=== PATIENT | female | born 2000 | race Caucasian/White ===

== ENCOUNTER 2023-05-08 20:07 | Inpatient (IN) | payer MEDICAID, SELFPAY ==
[2023-05-08 20:14] VITALS: BP 140/70; PULSE 120
[2023-05-08 20:24] VITALS: BP 132/80; PULSE 123; RESP 18; TEMP 36.7; O2SAT 97; BMI 32.6
[2023-05-08 20:54] LABS: MANUAL DIFF FLAG NO
[2023-05-08 20:55] LABS: Basophils Absolute Auto 0.1 X10*3/uL (0.0-0.2); Basophils Percent Auto 0.3 % (0-2); Eosinophils Absolute Auto 0.5 X10*3/uL (0.0-0.4); Eosinophils Percent Auto 3.2 % (0-4); Hematocrit 39.2 % (37.0-47.0); Hemoglobin 12.9 g/dl (12.0-16.0); Imm Gran Abs Auto 0.04 X10*3/uL (0.00-0.03); Imm Gran Pct Auto 0.3 % (0.0-0.4); Lymphocytes Absolute Auto 2.9 X10*3/uL (1.2-4.9); Lymphocytes Percent Auto 19.3 % (20-40); Mean Corpuscular HGB Conc 32.9 g/dl (31.0-35.0); Mean Corpuscular Volume 94.2 fL (80.0-98.0); Mean Platelet Volume 12.3 fL (9.4-12.3); Monocytes Absolute Auto 1.1 X10*3/uL (0.1-1.2); Monocytes Percent Auto 7.3 % (2-11); Neutrophils Absolute Auto 10.6 x10*3/uL (2.0-8.3); Neutrophils Percent Auto 69.6 % (45-73); Platelet Count 220 X10*3/uL (160-400); Red Blood Count 4.16 X10*6/uL (4.20-5.50); Red Cell Distribution Width 13.7 % (11.0-16.0); White Blood Count 15.2 X10*3/uL (4.8-10.8)
--- NOTE | 2023-05-08 20:58 | ED.PSYCH ---
HPI - Psych General Chief Complaint: Psychiatric Symptoms Stated Complaint: Making SI and HI statement today. Pt does have hx Time Seen by Provider: 05/08/23 20:20 Source: patient Mode of arrival: EMS Limitations: no limitations History of Present Illness HPI Narrative: 22 yo female with PMH of depression and SI from long-term asking for 1 week break she states she's been at the long-term for 5 days and it's wild and triggering and she needs a break. MD complaint: suicidal ideation and feels depressed Onset (ago): week(s) (1+) Duration: changing over time History of same: Yes Relieving factors: none Exacerbating factors: other Context: significant life stressor Associated psychiatric symptoms: depression and suicidal ideation Associated symptoms: denies other symptoms Treatments prior to arrival: none If self harm: admits thoughts of self harm Related Data Allergies Allergy/AdvReac Type Severity Reaction Status Date / Time ibuprofen Allergy Intermediate Hives Verified 05/08/23 20:43 Review of Systems Review of Systems: Constitutional : No Fever, No Chills ENT/Mouth : No Ear Pain, No Nasal Congestion, No sore throat Eyes: No Eye Pain, No Swelling, No Redness Cardiovascular : No Chest Pain, No SOB Respiratory : No Cough, No Sputum, No Dyspnea Gastrointestinal : No Nausea, No Vomiting, No Diarrhea, No Hematochezia, No Melena Genitourinary : No Dysuria, No Urinary Frequency, No Hematuria Musculoskeletal : No Myalgias Skin : No Skin Lesions, No rash Neuro : No Weakness, No Numbness, No Paresthesias, No Dizziness, No Headache Psych : positive Anxiety, positive Depression, positive SI no HI Heme/Lymph: No Lymphadenopathy Endocrine : No Polyuria, No Polydipsia All other systems reviewed and are negative FOR[facility]LY [facility], [facility] Past Medical History Attestation statement: The following information was validated with the patient. Medical History Depression Social History Social History (Updated 05/08/23 @ 21:13 by Milagros Aguilar DO) Patient Tobacco Use Status: Never used Tobacco Use of substances other than those prescribed or required for medical reasons: No Advance Directives: No Advance Directives Information Provided: No Physical Exam Vital Signs: Vital Signs: Last Vital Signs Temp 98.0 F 05/08/23 20:24 Pulse 123 H 12/01/23 20:24 Resp 18 05/08/23 20:24 BP 132/80 05/08/23 20:24 Pulse Ox 97 05/08/23 20:24 O2 Del Method Room Air 05/08/23 20:24 BMI result Body Mass Index 32.6 Appearance: Alert. Oriented X3. No acute distress. Eyes: Pupils equal, round and reactive to light. ENT: Pharynx normal. Neck: Normal inspection. Neck supple. CVS: Normal heart rate and rhythm. Pulses normal. Respiratory: No respiratory distress. Breath sounds normal. Abdomen: Soft and nontender. Skin: Skin warm and dry. Normal skin color. Normal skin turgor. Extremities: No lower extremity edema. No calf ttp Neuro: Oriented X 3. No motor deficit. No sensory deficit. CN2-12 intact Course Course Course Narrative: Physician observation started at 911pm Patient placed in physician observation because the patient needed more time for medication to work and to see CARE team to assess the need for psych admission. At the time observation was started the patient's vitals were stable, patient is alert and oriented but slightly anxious, Neuro: nonfocal, CV RRR, Lungs clear Medical Decision Making Medical Decision Making MDM Narrative: 22 yo female with PMH of anxiety and depression from long-term here with c/o triggered event at long-term now SI without plan. She is calm and cooperative at this time - CARE team consult ordered. There is another client from same long-term here and patient is talking to her. Differential Diagnosis Differential Diagnoses: The differential diagnosis associated with the presentation includes anxiety, depression, SI Admission/Observation Consideration of admission/observation: Escalation of care including admission/observation considered observe until CARE team sees patient Consult Healthcare Provider Management of the patient was discussed with: Behavioral Health Provider Lab Data [facility] Lab Attestation statement: I reviewed the patient's lab results. 05/08/23 20:47 05/08/23 20:47 Labs: Lab Results 05/08/23 05/08/23 Range/Units 20:47 20:48 WBC 15.2 H (4.8-10.8) X10*3/uL RBC 4.16 L (4.20-5.50) X10*6/uL Hgb 12.9 (12.0-16.0) g/dl Hct 39.2 (37.0-47.0) % MCV 94.2 (80.0-98.0) fL MCH 31.0 (27.0-33.0) pg MCHC 32.9 (31.0-35.0) g/dl RDW 13.7 (11.0-16.0) % Plt Count 220 (160-400) X10*3/uL MPV 12.3 (9.4-12.3) fL Immature Gran % (Auto) 0.3 (0.0-0.4) % Neut % (Auto) 69.6 (45-73) % Lymph % (Auto) 19.3 L (20-40) % [place] % (Auto) 7.3 (2-11) % Eos % (Auto) 3.2 (0-4) % Baso % (Auto) 0.3 (0-2) % Lymph # (Auto) 2.9 (1.2-4.9) X10*3/uL [place] # (Auto) 1.1 (0.1-1.2) X10*3/uL Eos # (Auto) 0.5 H (0.0-0.4) X10*3/uL Baso # (Auto) 0.1 (0.0-0.2) X10*3/uL Abs Immat Gran (auto) 0.04 H (0.00-0.03) X10*3/uL Absolute Neuts (auto) 10.6 H (2.0-8.3) x10*3/uL Absolute Nucleated RBC 0.000 (0.0-0.012) X10*3/uL Nucleated RBC % (auto) 0.0 (0.0-0.2) /100WBC Sodium 145 (135-145) mmol/L Potassium 3.5 (3.3-5.1) mmol/L Chloride 116 H (96-108) mmol/L Carbon Dioxide 21 L (22-29) mmol/L Anion Gap 12 (12-20) BUN 11 (9-16) mg/dL Creatinine 0.76 (0.5-1.4) mg/dL Estim Creat Clear Calc 115.3 Estimated GFR > 60 Random Glucose 139 H (60-115) mg/dL Calcium 9.5 (8.4-10.2) mg/dL Magnesium 1.9 (1.6-2.6) mg/dL Total Bilirubin 0.2 (0.0-1.0) mg/dL Direct Bilirubin < 0.2 (0.0-0.5) mg/dL AST 13 (5-31) U/L ALT 14 (0-31) U/L Alkaline Phosphatase 94 (39-117) U/L Total Protein 6.9 (6.5-8.0) g/dL Albumin 4.2 (3.5-5.0) g/dL Beta HCG, Quant < 2 mIU/mL Urine Opiates Screen Not Detected (Not Detect) Urine Fentanyl Screen Not Detected (Not Detect) Ur Barbiturates Screen Not Detected (Not Detect) Ur Phencyclidine Scrn Not Detected (Not Detect) Ur Amphetamines Screen Not Detected (Not Detect) U Benzodiazepines Scrn Not Detected (Not Detect) Urine Cocaine Screen Not Detected (Not Detect) U Marijuana (THC) Screen Not Detected (Not Detect) Ethyl Alcohol < 10 mg/dL Independent Historian Clinical information obtained from an independent historian. History obtained from or confirmed by: EMS External Record Review External record reviewed: Outpatient record Discharge Plan Discharge Clinical Impression: Acute anxiety Patient Disposition: Still a Patient
[2023-05-08 21:03] LABS: Amphetamine Screen Urine Not Detected (Not Detect); Barbiturates, Urine Not Detected (Not Detect); Benzodiazepines Screen Urine Not Detected (Not Detect); Cannabinoid Screen Urine Not Detected (Not Detect); Cocaine Screen Urine Not Detected (Not Detect); Fentanyl, urine Not Detected (Not Detect); Opiate Screen Urine Not Detected (Not Detect); Phencyclidine Screen Urine Not Detected (Not Detect)
[2023-05-08 21:25] LABS: Alanine Aminotransferase 14 U/L (0-31); Albumin Level 4.2 g/dL (3.5-5.0); Alkaline Phosphatase 94 U/L (39-117); Anion Gap 12 (12-20); Aspartate Amino Transferase 13 U/L (5-31); Bilirubin Direct < 0.2 mg/dL (0.0-0.5); Bilirubin Total 0.2 mg/dL (0.0-1.0); Blood Urea Nitrogen 11 mg/dL (9-16); Calcium 9.5 mg/dL (8.4-10.2); Carbon Dioxide 21 mmol/L (22-29); Chloride 116 mmol/L (96-108); Creatinine Clr Calc Pharmacy 115.3; Estimated Glomerular Filt Rate > 60; Ethanol < 10 mg/dL; Glucose Random 139 mg/dL (60-115); HCG Quantitative < 2 mIU/mL; Magnesium 1.9 mg/dL (1.6-2.6); Potassium 3.5 mmol/L (3.3-5.1); Sodium 145 mmol/L (135-145); Total Protein 6.9 g/dL (6.5-8.0)
[2023-05-08 22:34] LABS: Appearance Urine Clear; Color Urine Yellow; Glucose Urine UA Negative (Negative); Leukocyte Esterase Urine Negative (Negative); Nitrite Urine Negative (Negative); Urine Blood Negative (Negative); Urine Ketones Negative (Negative); Urine Protein Negative (Neg-Trace)
[2023-05-08 23:25] VITALS: BP 111/73; PULSE 115; RESP 20; TEMP 36.7; O2SAT 97
[2023-05-08] MEDS: Acetaminophen 325 MG TABLET 975 MG PO (23:28)
--- NOTE | 2023-05-08 23:33 | PC.NURSE ---
Pt medicated per aug. Plan of care ongoing.
--- NOTE | 2023-05-08 23:59 | PC.NURSE ---
Care team with pt. plan of care ongoing.
--- NOTE | 2023-05-09 00:44 | PC.NURSE ---
Pt requested and given food and drink. Plan of care ongoing.
[2023-05-09] MEDS: cloZAPine 100 MG TABLET 300 MG PO (03:31)
--- NOTE | 2023-05-09 03:34 | PC.NURSE ---
Pt medicated per aug. Plan of care ongoing.
--- NOTE | 2023-05-09 06:41 | MHC.CARE ---
[facility] Clinical Director is Margaret Gonzalez ([phone]) please contact her during F/U assessment. [facility] President is Sandy ([phone])
--- NOTE | 2023-05-09 09:34 | HE.PHANOTE ---
RE CLOZAPINE DOSING SPOKE TO TRAVIS AT [facility]F ([phone]) AND SHE CONFIRMED THAT PT TAKES 150 MG CLOZAPINE @0700, 150 MG CLOZAPINE @0800, AND 25 MG CLOZAPINE @1500. LAST DOSE GIVEN AT SNF WAS 05/08/23 25 MG @1500.
[2023-05-09 09:37] VITALS: BP 97/69; PULSE 127; TEMP 36.5; O2SAT 98
[2023-05-09 10:13] LABS: Lithium 0.48 mmol/L (0.60-1.20)
[2023-05-09] MEDS: Lithium Carbonate ER 300 MG TABLET.ER 1200 MG PO (10:55)
[2023-05-09 12:16] LABS: COVID-19 Test Negative (Negative); IDNOW Serial# 08D9AD1C
--- OUTSIDE RECORDS SUMMARY | 2023-05-09 13:30 | XMS_ITS | Continuity of Care Document ---
Author Name Unknown Organization [facility] Address [address] [place] [address]- Care Team Providers Care Manager Ent Name Role Phone Not on Staff, PCP Primary Care Physician Unavail able Encounter [facility] NBR [id number] Date(s): 05/05/23 - 05/05/[address] [address]- Discharge Disposition: A-D/C Walkout Attending Physician: Not on Staff, Attending MD Admitting Physician: Not on Staff, Admitting MD Referring Physician: Not on Staff, Referring MD Allergies, Adverse Reactions, Alerts Substance Reaction Severity Status ibuprofen Active Vital Signs Most recent to oldest [Reference Range]: 1 Height 163 cm (05/05/23 5:19 PM) Weight 80 kg (05/05/23 5:19 PM) Oxygen Saturation [94-100 %] 100 % (05/05/23 5:19 PM) Pulse Rate [55-90 bpm] 117 bpm *H* (05/05/23 5:19 PM) Blood Pressure [90-138/55-84 mm Hg] 125/ 92mm Hg (05/05/23 5:19 PM) Respiratory Rate [16-30 br/min] 18 br/mi n (05/05/23 5:19 PM) Temperature [96.8-100.4 DegF] 98 DegF (05/05/23 5:19 PM) Mode of Delivery (Oxygen) Room air (05/05/23 5:19 PM) Temperature Route Temporal (05/05/23 5:19 PM) Dry Weight 80 kg (05/05/23 5:19 PM) Social History Social History Type Response Smoking Status Never (less than 100 in lifetime) entered on: 05/05/23 Sex Patient Care team information Care Team Personnel Name: Not on Staff, PCP Position: [facility] Physician (General Medicine) Member Role: PCP
[2023-05-09] MEDS: Famotidine 20 MG TABLET 10 MG PO (15:57)
[2023-05-09] MEDS: Acetaminophen 325 MG TABLET 650 MG PO (15:58)
[2023-05-09] MEDS: cloZAPine 25 MG TABLET PO ×2 (15:58→20:31)
[2023-05-09] MEDS: clonazePAM 0.5 MG TABLET PO (15:58)
[2023-05-09] MEDS: Lactase TABLET 1 TAB PO (16:29)
[2023-05-09 16:34] VITALS: BMI 31.9
--- NOTE | 2023-05-09 16:39 | PC.ADMIT ---
Nursing admission note: 22 year old female DX: Unspecified Depressive Disorder, PTSD. Referred for treatment by CARE team. Signed conditional voluntary for admission. Reports she has conservator Forrest Mosley [phone]. Patient presented to [facility] via ambulance from her [facility] residential due to suicidal ideation. Patient reports she called the ambulance herself due to chaos at residential. Reports she moved in 5 days ago from residential setting. Patient easily engaged, calm and cooperative with admission assessment. Presents with good eye contact. Is malodorous, however asking to take shower. Thoughts linear and organized, concrete. Patient denies A/V hallucinations, no overt psychosis or expressed delusions. Speech normal rate, tone, nohemi. Difficult to understand at times due to speech impediment. Patient denies sleep or appetite disturbances. Reports history of incontinence at night. Per crisis evaluation patient triggered by yelling, screaming and breaking of things at new residence, reporting increase in flashbacks of past trauma. Patient with history of choking self, head banging and cutting. Currently has raised red area on forehead, superficial scratches to inner wrist. Medical history includes Lactose intolerance, bilateral hearing loss, asthma. Patient wearing glasses. Wears knee and ankle brace, currently with patient. Allergy to Ibuprofen. Patient denies drug or alcohol use. Non smoker. Reports receiving flu vaccine for current season. Patient would like med evaluation as she feels current meds are not working. Patient oriented to unit, placed on unit safety checks. See nursing assessment, crisis evaluation for complete details.
[2023-05-09] MEDS: Albuterol Sulfate 90 MCG 8 GM INHALER 1 PUFF INHALE (19:26)
[2023-05-09] MEDS: fluvoxaMINE Maleate 50 MG TABLET 25 MG PO (20:29)
[2023-05-09 20:30] VITALS: BP 116/72; PULSE 118; RESP 18; TEMP 37.1; O2SAT 99
[2023-05-09] MEDS: cloZAPine 100 MG, cloZAPine 50 MG 150 MG PO (20:31)
[2023-05-09] MEDS: Sennosides 8.6 MG TABLET 17.2 MG PO (20:40)
[2023-05-09] MEDS: Montelukast Sodium 10 MG TABLET PO (20:41)
[2023-05-09] MEDS: Fluticasone Propionate 100 MCG BLST.W.DEV 100 PUFF INHALE (20:42)
[2023-05-09] MEDS: polyethylene glycoL 3350 17 GM POWD.PACK PO (20:42)
[2023-05-09] MEDS: Fluticasone Propionate Nasal 16 GM SPRAY 1 SPRAY NOSTRIL-B (21:11)
[2023-05-10] MEDS: Levothyroxine Sodium 50 MCG TABLET PO (06:20)
[2023-05-10] MEDS: Famotidine 20 MG TABLET 10 MG PO ×2 (06:52→17:35)
[2023-05-10 07:15] LABS: Alanine Aminotransferase 29 U/L (0-31); Albumin Level 3.9 g/dL (3.5-5.0); Alkaline Phosphatase 66 U/L (39-117); Anion Gap 11 (12-20); Aspartate Amino Transferase 25 U/L (5-31); Bilirubin Total 0.4 mg/dL (0.0-1.0); Blood Urea Nitrogen 9 mg/dL (9-16); Calcium 9.7 mg/dL (8.4-10.2); Carbon Dioxide 23 mmol/L (22-29); Chloride 114 mmol/L (96-108); Cholesterol 141 mg/dL (<200); Creatinine Clr Calc Pharmacy 115.6; Estimated Glomerular Filt Rate > 60; Glucose Fasting 94 mg/dL (60-99); HDL Cholesterol 57 mg/dL (>40); LDL Cholesterol Calculated 64 mg/dL (<100); Potassium 3.9 mmol/L (3.3-5.1); Sodium 144 mmol/L (135-145); Total Protein 6.3 g/dL (6.5-8.0); Triglycerides 100 mg/dL (<150)
[2023-05-10 08:05] VITALS: BP 96/62; PULSE 100; TEMP 36.6; O2SAT 98
[2023-05-10] MEDS: Cholecalciferol (Vitamin D3) 25 MCG TABLET 125 MCG PO (08:55)
[2023-05-10] MEDS: Spironolactone 25 MG TABLET PO (08:56)
[2023-05-10] MEDS: Doxycycline Monohydrate 100 MG CAPSULE PO (08:56)
[2023-05-10] MEDS: cloZAPine 100 MG, cloZAPine 50 MG 150 MG PO (08:56)
[2023-05-10] MEDS: metFORMIN HCl 850 MG TABLET PO ×2 (08:56→20:15)
[2023-05-10] MEDS: Lactase TABLET 1 TAB PO ×3 (08:57→17:35)
[2023-05-10] MEDS: Lithium Carbonate ER 300 MG TABLET.ER 1200 MG PO (08:57)
[2023-05-10] MEDS: Fluticasone Propionate 100 MCG BLST.W.DEV 100 PUFF INHALE ×2 (09:05→20:17)
--- NOTE | 2023-05-10 10:00 | PC.NURSE ---
Patient signed a 3 day 05/10/23, up on Thu05/13/23
--- NOTE | 2023-05-10 10:18 | HO.PSYADMNOT ---
HPI Date of Service: 05/10/23 Chief Complaint: Psychosis Sources of Information: patient interviewed, chart reviewed and crisis/core team assessment reviewed HPI Subjective Notes: Aguiar Warning, Conditional Voluntary and 3 Day Healthcare Proxy: No Guardianship: No Medical Problems Affecting Mental Status: No Narrative: As per ED note 05/08/23: 22 yo female with PMH of depression and SI from [place] [facility] asking for 1 week break she states she's been at the [place] [facility] for 5 days and it's wild and triggering and she needs a break. MD complaint: suicidal ideation and feels depressed Please refer to extensive background information in patient's hard copy for/ medical record. Diagnoses of autism spectrum disorder, PTSD and mood dysregulation. Noted behavior plan which includes early warning signs the patient is getting distressed frustrated whining, swaering, staring, perseverate . also mentions risk behaviors such as attempting to elope, severe self-harm which can involve insertion of objects or ingestion of objects. Enjoys doing arts and crafts, watching new movies, listening to music and doing her nails. Assertive communication is helpful for client and clear choices. patient has congenital hearing loss. Wears a knee and ankle brace. There is a conservatorship, which is through a [place] court. Was at [facility] in [place] for over 2 years, before transitioning to [facility] in [place] under 1 week ago. Medications include clozapine 150 mg morning, 25 mg afternoon and 300 mg at bedtime. Klonopin 0.25 mg twice daily and 0.5 mg in the afternoon, lithium 1200 mg morning, Luvox 25 mg bedtime, Synthroid 50 mg morning, metformin 500 mg morning and 850 mg in the evening. Patient reports that her new group living environment was stressful and chaotic and led to her feeling dysregulated is, suicidal and brought flashbacks. Reports today feeling more calm and hopeful she can be discharged soon. Reports wanting to be a role model for behavior at her [place] [facility] by interacting, having fine and being able to eat out with others. Adamantly denies thoughts of suicide or self-harm. Denies psychosis. Slept okay. No medication concerns. Feels safe on the unit. Has been participating in groups. She was focused on her ankle brace and reported that her ankle was hurting. This does appear to be chronic in nature. There is no obvious swelling. Communicated that may get ankle x-ray if things continue to be exacerbated. Regarding replacement of ankle brace, communicated continuing to utilize the 1 she has as unlikely to get 1 in the hospital on Sundays and the 1 she has appears to be functioning well. Patient submitted 3 day notice. Aguiar warning given. Past Psychiatric History: Please refer to extensive background information in patient's hard copy for/ medical record. Diagnoses of autism spectrum disorder, PTSD and mood dysregulation. Noted behavior plan which includes early warning signs the patient is getting distressed frustrated whining, swaering, staring, perseverate . also mentions risk behaviors such as attempting to elope, severe self-harm which can involve insertion of objects or ingestion of objects. Enjoys doing arts and crafts, watching new movies, listening to music and doing her nails. Assertive communication is helpful for client and clear choices. There is a conservatorship, which is through a [place] court. Was at [facility] in [place] for over 2 years, before transitioning to [facility] under 1 week ago. Medications include clozapine 150 mg morning, 25 mg afternoon and 300 mg at bedtime. Klonopin 0.25 mg twice daily and 0.5 mg in the afternoon, lithium 1200 mg morning, Luvox 25 mg bedtime, Synthroid 50 mg morning, metformin 500 mg morning and 850 mg in the evening. Medical Evaluation Reviewed: Yes [facility] Medical History Depression Social History: There [facility], [facility]. Was at [facility] for over 2 years, before transitioning to [facility] under 1 week ago. Substance History: denied Trauma History: extensive as per collateral paperwork Diagnostics Vital Signs (24Hr): Vital Signs - 24 hr 05/09/23 20:30 05/10/23 08:05 Temperature 98.7 F 97.8 F Pulse Rate 118 H 100 Respiratory Rate 18 Blood Pressure 116/72 96/62 Pulse Oximetry 99 98 Oxygen Delivery Method Room Air Room Air BMI result Body Mass Index 31.9 Labs 05/08/23 20:47 05/10/23 06:52 Labs: Laboratory Results - last 48 hr 05/08/23 05/08/23 05/09/23 20:47 20:48 09:57 WBC 15.2 H RBC 4.16 L Hgb 12.9 Hct 39.2 MCV 94.2 MCH 31.0 MCHC 32.9 RDW 13.7 Plt Count 220 MPV 12.3 Immature Gran % (Auto) 0.3 Neut % (Auto) 69.6 Lymph % (Auto) 19.3 L [place] % (Auto) 7.3 Eos % (Auto) 3.2 Baso % (Auto) 0.3 Lymph # (Auto) 2.9 [place] # (Auto) 1.1 Eos # (Auto) 0.5 H Baso # (Auto) 0.1 Abs Immat Gran (auto) 0.04 H Absolute Neuts (auto) 10.6 H Absolute Nucleated RBC 0.000 Nucleated RBC % (auto) 0.0 Sodium 145 Potassium 3.5 Chloride 116 H Carbon Dioxide 21 L Anion Gap 12 BUN 11 Creatinine 0.76 Estim Creat Clear Calc 115.3 Estimated GFR > 60 Random Glucose 139 H Fasting Glucose Calcium 9.5 Magnesium 1.9 Total Bilirubin 0.2 Direct Bilirubin < 0.2 AST 13 ALT 14 Alkaline Phosphatase 94 Total Protein 6.9 Albumin 4.2 Triglycerides Cholesterol LDL Cholesterol, Calc HDL Cholesterol Beta HCG, Quant < 2 Urine Color Yellow Urine Appearance Clear Urine pH 6.0 Ur Specific [place] 1.020 Urine Protein Negative Urine Glucose (UA) Negative Urine Ketones Negative Urine Blood Negative Urine Nitrite Negative Ur Leukocyte Esterase Negative Urine Opiates Screen Not Detected Urine Fentanyl Screen Not Detected Ur Barbiturates Screen Not Detected Ur Phencyclidine Scrn Not Detected Ur Amphetamines Screen Not Detected U Benzodiazepines Scrn Not Detected [place] 0.48 L Urine Cocaine Screen Not Detected U Marijuana (THC) Screen Not Detected Ethyl Alcohol < 10 COVID-19 (MARIA L) COVID-19 Clin Com 05/09/23 05/10/23 11:33 06:52 WBC RBC Hgb Hct MCV MCH MCHC RDW Plt Count MPV Immature Gran % (Auto) Neut % (Auto) Lymph % (Auto) [place] % (Auto) Eos % (Auto) Baso % (Auto) Lymph # (Auto) [place] # (Auto) Eos # (Auto) Baso # (Auto) Abs Immat Gran (auto) Absolute Neuts (auto) Absolute Nucleated RBC Nucleated RBC % (auto) Sodium 144 Potassium 3.9 Chloride 114 H Carbon Dioxide 23 Anion Gap 11 L BUN 9 Creatinine 0.75 Estim Creat Clear Calc 115.6 Estimated GFR > 60 Random Glucose Fasting Glucose 94 Calcium 9.7 Magnesium Total Bilirubin 0.4 Direct Bilirubin AST 25 ALT 29 Alkaline Phosphatase 66 Total Protein 6.3 L Albumin 3.9 Triglycerides 100 Cholesterol 141 LDL Cholesterol, Calc 64 HDL Cholesterol 57 Beta HCG, Quant Urine Color Urine Appearance Urine pH Ur Specific [place] Urine Protein Urine Glucose (UA) Urine Ketones Urine Blood Urine Nitrite Ur Leukocyte Esterase Urine Opiates Screen Urine Fentanyl Screen Ur Barbiturates Screen Ur Phencyclidine Scrn Ur Amphetamines Screen U Benzodiazepines Scrn [place] Urine Cocaine Screen U Marijuana (THC) Screen Ethyl Alcohol COVID-19 (MARIA L) Negative COVID-19 Clin Com See Note Meds/Allergies Meds Home Medications Medication Instructions Recorded Confirmed Type Aldactone 25 mg PO DAILY Obesity 05/09/23 05/09/23 History Colace 100 mg PO DAILY 05/09/23 05/09/23 History Florastor 500 mg PO BEDTIME 05/09/23 05/09/23 History Flovent 100 mcg PO 2XD 05/09/23 05/09/23 History Klonopin 0.25 mg PO 2XD 05/09/23 05/09/23 History Lactaid 3,000 units PO 3XD 05/09/23 05/09/23 History Metamucil 1 packet PO DAILY 05/09/23 05/09/23 History Miralax 17 g PO 2XD 05/09/23 05/09/23 History Singulair 10 mg PO BEDTIME 05/09/23 05/09/23 History Synthroid 50 mcg PO DAILY 05/09/23 05/09/23 History Vibramycin 100 mg PO DAILY 05/09/23 05/09/23 History Vitamin D3 125 mcg PO DAILY 05/09/23 05/09/23 History clonazepam 0.5 mg tablet (Klonopin) 0.5 mg PO DAILY 05/09/23 05/09/23 History clozapine 25 mg tablet (Clozaril) 25 mg PO DAILY@1500 05/09/23 05/09/23 History clozapine 50 mg tablet (Clozaril) 150 mg PO BID@0700,0800 05/09/23 05/09/23 History famotidine 10 mg PO 2XD 05/09/23 05/09/23 History fluticasone propionate 100 mcg intranasal BEDTIME 05/09/23 05/09/23 History fluvoxamine 25 mg tablet 25 mg PO BEDTIME 05/09/23 05/09/23 History lithium carbonate 600 mg capsule 1,200 mg PO DAILY 05/09/23 05/09/23 History metformin 500 mg PO DAILY 05/09/23 05/09/23 History metformin 850 mcg PO DAILY 05/09/23 05/09/23 History senna 17.2 mg PO BEDTIME 05/09/23 05/09/23 History Allergies Allergies Allergy/AdvReac Type Severity Reaction Status Date / Time ibuprofen Allergy Intermediate Hives Verified 05/08/23 20:43 Mental Status Exam Mental Status Exam Narrative: Pleasant. Engaged. Casually dressed. Good hygiene. Is very concrete and does perseverate on certain things. Somatically preoccupied at times. Denies feeling depressed or anxious now. No SI or self-harm ideas. No HI. No agitation. No psychosis. Insight and judgment fair Assessment & Plan Assessment & Plan (1) PTSD (post-traumatic stress disorder): Status: Acute Code(s): F43.10 - Post-traumatic stress disorder, unspecified (2) Autism: Status: Acute Code(s): F84.0 - Autistic disorder (3) Mood disorder: Status: Acute Code(s): F39 - Unspecified mood [affective] disorder Plan patient presents with background history of autism spectrum disorder, PTSD and unspecified mood disorder. Was at a residential treatment program in [place] for over 2 years and recently transitioned to a group living environment in [place] under 1 week ago. This appears to have been destabilize in for patient which led to decompensation in mood along with suicidal thoughts. Does appear to have 3 compensated while in the hospital and submitted a 3 day notice. 1) Utilize behavior plan which is an record, to maintain consistency with hospital setting and [facility] environment 2) clozapine 150 mg morning, 25 mg afternoon and 300 mg at bedtime. Klonopin 0.25 mg twice daily and 0.5 mg in the afternoon, lithium 1200 mg morning, Luvox 25 mg bedtime, Synthroid 50 mg morning, metformin 500 mg morning and 850 mg in the evening. 3) primary team to liaise with patient's community teams and supports around treatment and disposition planning 4) 3 day notice expires 05/13 Patient educated on: therapeutic strategies Reason for continued inpatient stay Substantial Risk for: harm to self Statement Statement: I have reviewed the history and physical and performed a pertinent examination on my patient. No changes have occurred unless specified. If the History and Physical was not performed prior to admission, the Hospitalist's service will be consulted for completing the admission physical. Time Spent With Patient Time: Total time managing care of this patient today ____ minutes.
[2023-05-10] MEDS: Albuterol Sulfate 90 MCG 8 GM INHALER 1 PUFF INHALE (12:25)
[2023-05-10] MEDS: clonazePAM 0.5 MG TABLET PO (15:24)
[2023-05-10] MEDS: cloZAPine 25 MG TABLET PO (15:25)
[2023-05-10 19:59] VITALS: BP 111/82; PULSE 119; RESP 18; TEMP 36.9; O2SAT 98
[2023-05-10] MEDS: Montelukast Sodium 10 MG TABLET PO (20:14)
[2023-05-10] MEDS: cloZAPine 100 MG TABLET 300 MG PO (20:15)
[2023-05-10] MEDS: fluvoxaMINE Maleate 50 MG TABLET 25 MG PO (20:15)
[2023-05-10] MEDS: Fluticasone Propionate Nasal 16 GM SPRAY 1 SPRAY NOSTRIL-B (20:16)
[2023-05-11] MEDS: Levothyroxine Sodium 50 MCG TABLET PO (06:51)
[2023-05-11] MEDS: Famotidine 20 MG TABLET 10 MG PO ×2 (07:27→15:35)
[2023-05-11 08:04] LABS: Glucose, Whole Blood 90 mg/dL (60-115)
[2023-05-11] MEDS: Lithium Carbonate ER 300 MG TABLET.ER 1200 MG PO (08:34)
[2023-05-11] MEDS: Docusate Sodium 100 MG CAPSULE PO (08:35)
[2023-05-11] MEDS: Doxycycline Monohydrate 100 MG CAPSULE PO (08:35)
[2023-05-11] MEDS: metFORMIN HCl 500 MG TABLET PO (08:35)
[2023-05-11] MEDS: Lactase TABLET 1 TAB PO ×3 (08:35→16:21)
[2023-05-11] MEDS: Spironolactone 25 MG TABLET PO (08:35)
[2023-05-11] MEDS: Cholecalciferol (Vitamin D3) 25 MCG TABLET 125 MCG PO (08:35)
[2023-05-11] MEDS: cloZAPine 100 MG, cloZAPine 50 MG 150 MG PO (08:36)
[2023-05-11] MEDS: polyethylene glycoL 3350 17 GM POWD.PACK PO (08:39)
[2023-05-11] MEDS: Psyllium seed 3.7 GM PACKET PO (08:39)
[2023-05-11 08:45] VITALS: BP 117/72; PULSE 104; RESP 18; TEMP 36.6; O2SAT 98
[2023-05-11] MEDS: Fluticasone Propionate 100 MCG BLST.W.DEV 100 PUFF INHALE ×2 (08:46→20:13)
--- NOTE | 2023-05-11 12:04 | P.DS_ITS ---
DS: Providers Provider Date of Service: 05/11/23 Date of admission: 05/09/23 13:25 Primary care physician: Unknown Physician DS: Diagnosis Discharge Diagnosis (1) PTSD (post-traumatic stress disorder): Status: Acute (2) Autism: Status: Acute (3) Mood disorder: Status: Acute DS: Medications Discharge Medications Home Medications: Home Medications Medication Instructions Recorded Confirmed Aldactone 25 mg PO DAILY Obesity 05/09/23 05/09/23 Colace 100 mg PO DAILY 05/09/23 05/09/23 Florastor 500 mg PO BEDTIME 05/09/23 05/09/23 Flovent 100 mcg PO 2XD 05/09/23 05/09/23 Klonopin 0.25 mg PO 2XD 05/09/23 05/09/23 Lactaid 3,000 units PO 3XD 05/09/23 05/09/23 Metamucil 1 packet PO DAILY 05/09/23 05/09/23 Miralax 17 g PO 2XD 05/09/23 05/09/23 Singulair 10 mg PO BEDTIME 05/09/23 05/09/23 Synthroid 50 mcg PO DAILY 05/09/23 05/09/23 Vibramycin 100 mg PO DAILY 05/09/23 05/09/23 Vitamin D3 125 mcg PO DAILY 05/09/23 05/09/23 clonazepam 0.5 mg tablet (Klonopin) 0.5 mg PO DAILY 05/09/23 05/09/23 clozapine 25 mg tablet (Clozaril) 25 mg PO DAILY@1500 05/09/23 05/09/23 clozapine 50 mg tablet (Clozaril) 150 mg PO BID@0700,0800 05/09/23 05/09/23 famotidine 10 mg PO 2XD 05/09/23 05/09/23 fluticasone propionate 100 mcg intranasal BEDTIME 05/09/23 05/09/23 fluvoxamine 25 mg tablet 25 mg PO BEDTIME 05/09/23 05/09/23 lithium carbonate 600 mg capsule 1,200 mg PO DAILY 05/09/23 05/09/23 metformin 500 mg PO DAILY 05/09/23 05/09/23 metformin 850 mcg PO DAILY 05/09/23 05/09/23 senna 17.2 mg PO BEDTIME 05/09/23 05/09/23 Mental Status Exam Mental Status Exam Narrative: Pleasant. Engaged. Casually dressed. Good hygiene. Is very concrete and does perseverate on certain things. Somatically preoccupied at times. Denies feeling depressed or anxious now, mood tired. No SI or self-harm ideas. No HI. no AVH. No agitation. No psychosis. Insight and judgment fair Data Data Completed and Pending Completed studies during hospitalization [Text1]: 05/08/23 05/08/23 05/09/23 20:47 20:48 09:57 WBC 15.2 H RBC 4.16 L Hgb 12.9 Hct 39.2 MCV 94.2 MCH 31.0 MCHC 32.9 RDW 13.7 Plt Count 220 MPV 12.3 Immature Gran % (Auto) 0.3 Neut % (Auto) 69.6 Lymph % (Auto) 19.3 L Bacon % (Auto) 7.3 Eos % (Auto) 3.2 Baso % (Auto) 0.3 Lymph # (Auto) 2.9 Bacon # (Auto) 1.1 Eos # (Auto) 0.5 H Baso # (Auto) 0.1 Abs Immat Gran (auto) 0.04 H Absolute Neuts (auto) 10.6 H Absolute Nucleated RBC 0.000 Nucleated RBC % (auto) 0.0 Sodium 145 Potassium 3.5 Chloride 116 H Carbon Dioxide 21 L Anion Gap 12 BUN 11 Creatinine 0.76 Estim Creat Clear Calc 115.3 Estimated GFR > 60 POC Glucose Random Glucose 139 H Fasting Glucose Calcium 9.5 Magnesium 1.9 Total Bilirubin 0.2 Direct Bilirubin < 0.2 AST 13 ALT 14 Alkaline Phosphatase 94 Total Protein 6.9 Albumin 4.2 Triglycerides Cholesterol LDL Cholesterol, Calc HDL Cholesterol Beta HCG, Quant < 2 Urine Color Yellow Urine Appearance Clear Urine pH 6.0 Ur Specific [place] 1.020 Urine Protein Negative Urine Glucose (UA) Negative Urine Ketones Negative Urine Blood Negative Urine Nitrite Negative Ur Leukocyte Esterase Negative Urine Opiates Screen Not Detected Urine Fentanyl Screen Not Detected Ur Barbiturates Screen Not Detected Ur Phencyclidine Scrn Not Detected Ur Amphetamines Screen Not Detected U Benzodiazepines Scrn Not Detected [place] 0.48 L Urine Cocaine Screen Not Detected U Marijuana (THC) Screen Not Detected Ethyl Alcohol < 10 COVID-19 ([facility]) COVID-19 Clin Com 05/09/23 05/10/23 05/11/23 11:33 06:52 07:58 WBC RBC Hgb Hct MCV MCH MCHC RDW Plt Count MPV Immature Gran % (Auto) Neut % (Auto) Lymph % (Auto) Bacon % (Auto) Eos % (Auto) Baso % (Auto) Lymph # (Auto) Bacon # (Auto) Eos # (Auto) Baso # (Auto) Abs Immat Gran (auto) Absolute Neuts (auto) Absolute Nucleated RBC Nucleated RBC % (auto) Sodium 144 Potassium 3.9 Chloride 114 H Carbon Dioxide 23 Anion Gap 11 L BUN 9 Creatinine 0.75 Estim Creat Clear Calc 115.6 Estimated GFR > 60 POC Glucose 90 Random Glucose Fasting Glucose 94 Calcium 9.7 Magnesium Total Bilirubin 0.4 Direct Bilirubin AST 25 ALT 29 Alkaline Phosphatase 66 Total Protein 6.3 L Albumin 3.9 Triglycerides 100 Cholesterol 141 LDL Cholesterol, Calc 64 HDL Cholesterol 57 Beta HCG, Quant Urine Color Urine Appearance Urine pH Ur Specific [place] Urine Protein Urine Glucose (UA) Urine Ketones Urine Blood Urine Nitrite Ur Leukocyte Esterase Urine Opiates Screen Urine Fentanyl Screen Ur Barbiturates Screen Ur Phencyclidine Scrn Ur Amphetamines Screen U Benzodiazepines Scrn [place] Urine Cocaine Screen U Marijuana (THC) Screen Ethyl Alcohol COVID-19 ([facility]) Negative COVID-19 Clin Com See Note DS: Summary Hospital Course Hospital Course: per 05/10 admission note: As per ED note 05/08/23: 22 yo female with PMH of depression and SI from alf asking for 1 week break she states she's been at the alf for 5 days and it's wild and triggering and she needs a break. MD complaint: suicidal ideation and feels depressed Please refer to extensive background information in patient's hard copy for/ medical record. Diagnoses of autism spectrum disorder, PTSD and mood dysregulation. Noted behavior plan which includes early warning signs the patient is getting distressed frustrated whining, swaering, staring, perseverate . also mentions risk behaviors such as attempting to elope, severe self-harm which can involve insertion of objects or ingestion of objects. Enjoys doing arts and crafts, watching new movies, listening to music and doing her nails. Assertive communication is helpful for client and clear choices. patient has congenital hearing loss. Wears a knee and ankle brace. There is a conservatorship, which is [facility]. Was at [facility] for over 2 years, before transitioning to [facility] under 1 week ago. Medications include clozapine 150 mg morning, 25 mg afternoon and 300 mg at bedtime. Klonopin 0.25 mg twice daily and 0.5 mg in the afternoon, lithium 1200 mg morning, Luvox 25 mg bedtime, Synthroid 50 mg morning, metformin 500 mg morning and 850 mg in the evening. Patient reports that her new group living environment was stressful and chaotic and led to her feeling dysregulated is, suicidal and brought flashbacks. Reports today feeling more calm and hopeful she can be discharged soon. Reports wanting to be a role model for behavior at her alf by interacting, having fine and being able to eat out with others. Adamantly denies thoughts of suicide or self-harm. Denies psychosis. Slept okay. No medication concerns. Feels safe on the unit. Has been participating in groups. She was focused on her ankle brace and reported that her ankle was hurting. This does appear to be chronic in nature. There is no obvious swelling. Communicated that may get ankle x-ray if things continue to be exacerbated. Regarding replacement of ankle brace, communicated continuing to utilize the 1 she has as unlikely to get 1 in the hospital on Sundays and the 1 she has appears to be functioning well. Patient submitted 3 day notice. Aguiar warning given. Past Psychiatric History: Please refer to extensive background information in patient's hard copy for/ medical record. Diagnoses of autism spectrum disorder, PTSD and mood dysregulation. Noted behavior plan which includes early warning signs the patient is getting distressed frustrated whining, swaering, staring, perseverate . also mentions risk behaviors such as attempting to elope, severe self-harm which can involve insertion of objects or ingestion of objects. Enjoys doing arts and crafts, watching new movies, listening to music and doing her nails. Assertive communication is helpful for client and clear choices. There is a conservatorship, which is through a [place] court. Was at [facility] for over 2 years, before transitioning to [facility] under 1 week ago. Medications include clozapine 150 mg morning, 25 mg afternoon and 300 mg at bedtime. Klonopin 0.25 mg twice daily and 0.5 mg in the afternoon, lithium 1200 mg morning, Luvox 25 mg bedtime, Synthroid 50 mg morning, metformin 500 mg morning and 850 mg in the evening. Medical Evaluation Reviewed: Yes PMFSH Medical History Depression Social History: There is a conservatorship, which is through a [place] court. Was at [facility] in [place] for over 2 years, before transitioning to [facility] in [place] under 1 week ago. Substance History: denied Trauma History: extensive as per collateral paperwork 05/11: calm, cooperative. asking for discharge. plan for discharge back to alf tomorrow. 05/12: bright, calm. stable. discharged back to alf as per plan. Time Spent with Patient Time attestation: Total time managing care of this patient today ____ minutes. Time spent: Greater than 30 minutes Discharge Plan Discharge Anticipated Discharge Date/Time: 05/12/23 10:00 Patient Disposition: Home, Self-Care Discharge Diagnosis: PTSD, Chronic Mood Disorder NOS Autism Spectrum Disorder Referrals: Therapy & Psychiatry [Other] - 1 Week (Please reach out to [facility] regarding obtaining outpatient mental health providers) [facility] [Provider Group] - 1 Week Discharge Medications: New clozapine 100 mg Tablet 300 mg PO BEDTIME Qty: 0 0RF clozapine 50 mg Tablet 150 mg PO DAILY Qty: 0 0RF Continued clozapine [Clozaril] 25 mg Tablet 25 mg PO DAILY@1500 Rx Instructions: Daily @ 3pm Klonopin 0.25 mg PO 2XD Rx Instructions: two times daily @ 8am and 8pm. clonazepam [Klonopin] 0.5 mg Tablet 0.5 mg PO DAILY Rx Instructions: Daily @ 3pm. lithium carbonate 600 mg Capsule 1,200 mg PO DAILY Rx Instructions: Daily in the morning fluvoxamine 25 mg Tablet 25 mg PO BEDTIME Rx Instructions: daily @ bedtime Aldactone 25 mg PO DAILY Colace 100 mg PO DAILY famotidine 10 mg PO 2XD Florastor 500 mg PO BEDTIME Flovent 100 mcg PO 2XD fluticasone propionate 100 mcg intranasal BEDTIME Lactaid 3,000 units PO 3XD Metamucil 1 packet PO DAILY metformin 500 mg PO DAILY metformin 850 mcg PO DAILY Rx Instructions: Once daily in evening Miralax 17 g PO 2XD senna 17.2 mg PO BEDTIME Singulair 10 mg PO BEDTIME Synthroid 50 mcg PO DAILY Rx Instructions: Daily @ 8am Vibramycin 100 mg PO DAILY Vitamin D3 125 mcg PO DAILY Discontinued clozapine [Clozaril] 50 mg Tablet 150 mg PO BID@0700,0800 Discharge Orders: Discharge Order (Routine); Ordered 05/12/23 Ordered By: Nuno Pantoja Diet: Diabetic diet Activity on Discharge: As tolerated Stand Alone Forms: Patient Portal Discharge page, Community Support Care Plan Goals: remain safe and stable in the outpatient treatment setting Health Concerns: Diabetes Mellitus Plan of Treatment: take medications as prescribed, attend appointments as scheduled Assessment: not at imminent risk of harm to self or others Discharge Date/Time: 05/12/23 10:25
[2023-05-11] MEDS: Acetaminophen 325 MG TABLET 650 MG PO ×2 (12:35→18:31)
[2023-05-11] MEDS: clonazePAM 0.5 MG TABLET PO (15:36)
[2023-05-11] MEDS: cloZAPine 25 MG TABLET PO (15:36)
[2023-05-11] MEDS: hydrOXYzine HCL 25 MG TABLET PO (16:21)
[2023-05-11 19:50] VITALS: BP 136/81; PULSE 113; RESP 13; TEMP 36.8; O2SAT 99
[2023-05-11] MEDS: cloZAPine 100 MG TABLET 300 MG PO (20:06)
[2023-05-11] MEDS: fluvoxaMINE Maleate 50 MG TABLET 25 MG PO (20:08)
[2023-05-11] MEDS: Sennosides 8.6 MG TABLET 17.2 MG PO (20:09)
[2023-05-11] MEDS: metFORMIN HCl 850 MG TABLET PO (20:11)
[2023-05-11] MEDS: Montelukast Sodium 10 MG TABLET PO (20:11)
[2023-05-11] MEDS: Fluticasone Propionate Nasal 16 GM SPRAY 1 SPRAY NOSTRIL-B (20:12)
[2023-05-12] MEDS: Levothyroxine Sodium 50 MCG TABLET PO (06:46)
[2023-05-12 07:27] LABS: Glucose, Whole Blood 91 mg/dL (60-115)
[2023-05-12 08:04] VITALS: BP 132/81; PULSE 104; RESP 16; TEMP 36.7; O2SAT 100
[2023-05-12] MEDS: Famotidine 20 MG TABLET 10 MG PO (08:10)
[2023-05-12] MEDS: Doxycycline Monohydrate 100 MG CAPSULE PO (08:10)
[2023-05-12] MEDS: cloZAPine 100 MG, cloZAPine 50 MG 150 MG PO (08:10)
[2023-05-12] MEDS: metFORMIN HCl 500 MG TABLET PO (08:11)
[2023-05-12] MEDS: Lithium Carbonate ER 300 MG TABLET.ER 1200 MG PO (08:12)
[2023-05-12] MEDS: Lactase TABLET 1 TAB PO (08:13)
[2023-05-12] MEDS: Cholecalciferol (Vitamin D3) 25 MCG TABLET 125 MCG PO (08:13)
[2023-05-12] MEDS: Spironolactone 25 MG TABLET PO (08:13)
[2023-05-12] MEDS: Psyllium seed 3.7 GM PACKET PO (08:15)
[2023-05-12] MEDS: Fluticasone Propionate 100 MCG BLST.W.DEV 100 PUFF INHALE (08:15)
[2023-05-16 00:38] LABS: Norclozapine 604 mcg/L (25-400)
== END 2023-05-12 10:25 | disposition home or self-care (01) | DRG 753 ==
LOC: HO.ED 05-09 11:11 → HO.PADLT16 05-09 13:28
PROVIDERS: Emergency Medicine; Psychiatry & Neurology Psychiatry; Admitting Provider Psychiatry & Neurology Psychiatry; Emergency Provider Emergency Medicine; Visit Provider Psychiatry & Neurology Psychiatry
DX: F39 Unspecified mood [affective] disorder (principal); R45.851 Suicidal ideations; F43.10 Post-traumatic stress disorder, unspecified; F84.0 Autistic disorder; Z20.822 Contact with and (suspected) exposure to COVID-19; Z79.899 Other long term (current) drug therapy
CPT/HCPCS: 36415; 80048; 80053; 80061; 80076; 80159; 80178; 80307; 81003; 82947; 83735; 84702; 85025; 87635; 99285; S9485

== ENCOUNTER → 2023-05-09 13:25 | Outpatient (BNV) | payer MEDICAID, SELFPAY | PROVIDERS: Admitting Provider Psychiatry & Neurology Psychiatry; Emergency Provider Emergency Medicine; Visit Provider Psychiatry & Neurology Psychiatry | DX: F39 Unspecified mood [affective] disorder (principal); F43.11 Post-traumatic stress disorder, acute; F84.0 Autistic disorder | CPT/HCPCS: 90792; 99231; 99239 ==

== ENCOUNTER 2023-05-16 18:28 | Emergency (ER) | payer MEDICAID, SELFPAY ==
[2023-05-16 18:43] VITALS: BP 118/74; BP 119/74; PULSE 121; PULSE 124; RESP 18; TEMP 36.9; O2SAT 98; BMI 27.5
--- NOTE | 2023-05-16 18:48 | ED.GENADULT ---
HPI - General Adult General Chief complaint: Psychiatric Symptoms Stated complaint: crisis Time Seen by Provider: 05/16/23 18:29 Source: patient and EMS Mode of arrival: EMS Limitations: other (For history) History of Present Illness HPI narrative: This is a 22-year-old female history of PTSD, autism, mood disorder, anxiety presenting to the emergency department via ambulance for complaints of suicidal ideation and thoughts of self-harming by cutting, patient is coming from residential she tells me that she was recently admitted in the psychiatric unit last week, despite this she has not been feeling much better. Tells me she is feeling suicidal right now but cannot tell me a plan. Denies hallucinations. Denies medical complaints. Related Data Home Medications Medication Instructions Recorded Confirmed Aldactone 25 mg PO DAILY Obesity 05/09/23 05/09/23 Colace 100 mg PO DAILY 05/09/23 05/09/23 Florastor 500 mg PO BEDTIME 05/09/23 05/09/23 Flovent 100 mcg PO 2XD 05/09/23 05/09/23 Klonopin 0.25 mg PO 2XD 05/09/23 05/09/23 Lactaid 3,000 units PO 3XD 05/09/23 05/09/23 Metamucil 1 packet PO DAILY 05/09/23 05/09/23 Miralax 17 g PO 2XD 05/09/23 05/09/23 Singulair 10 mg PO BEDTIME 05/09/23 05/09/23 Synthroid 50 mcg PO DAILY 05/09/23 05/09/23 Vibramycin 100 mg PO DAILY 05/09/23 05/09/23 Vitamin D3 125 mcg PO DAILY 05/09/23 05/09/23 clonazepam 0.5 mg tablet (Klonopin) 0.5 mg PO DAILY 05/09/23 05/09/23 clozapine 25 mg tablet (Clozaril) 25 mg PO DAILY@1500 05/09/23 05/09/23 famotidine 10 mg PO 2XD 05/09/23 05/09/23 fluticasone propionate 100 mcg intranasal BEDTIME 05/09/23 05/09/23 fluvoxamine 25 mg tablet 25 mg PO BEDTIME 05/09/23 05/09/23 lithium carbonate 600 mg capsule 1,200 mg PO DAILY 05/09/23 05/09/23 metformin 500 mg PO DAILY 05/09/23 05/09/23 metformin 850 mcg PO DAILY 05/09/23 05/09/23 senna 17.2 mg PO BEDTIME 05/09/23 05/09/23 Previous Rx's Medication Instructions Recorded clozapine 100 mg tablet 300 mg (3 x 100 mg) PO BEDTIME #0 05/12/23 tabs clozapine 50 mg tablet 150 mg (3 x 50 mg) PO DAILY #0 tabs 05/12/23 nitrofurantoin 100 mg PO BID 5 days #10 caps 05/16/23 monohydrate/macrocrystals 100 mg capsule (Macrobid) Allergies Allergy/AdvReac Type Severity Reaction Status Date / Time ibuprofen Allergy Intermediate Hives Verified 05/08/23 20:43 Review of Systems Review of Systems: Constitutional : No Weight loss, No Fever, No Chills, No Fatigue, No Malaise ENT/Mouth : No sore throat, No Rhinorrhea Eyes: No Eye Pain, No Swelling, No Redness Cardiovascular : No Chest Pain, No SOB, No Dyspnea on Exertion, No Orthopnea, No Edema, No Palpitations Respiratory : No Cough, No Sputum, No Wheezing Gastrointestinal : No Nausea, No Vomiting, No Diarrhea, No Constipation, No abdominal Pain, No Hematochezia, No Melena Genitourinary : No Dysuria, No Urinary Frequency, No Hematuria, Musculoskeletal : No joint pain, No Myalgias, No Joint Swelling Skin : No Skin Lesions, No rash Neuro : No Weakness, No Numbness, No Dizziness, No Headache Psych : + Anxiety/Panic, No Depression, + SI All other systems reviewed and are negative Yes all other systems are reviewed and are negative [facility] Past Medical History Attestation statement: The following information was validated with the patient. Source: old records reviewed and nursing notes reviewed Medical History Depression Social History Social History Household Members: Other Household Members Other:: New residence, moved in Thursday Housing: House Housing Other:: 3 Do you presently have visiting nurse or other home services: No Patient Tobacco Use Status: Never used Tobacco Second Hand Smoke Exposure: No Advance Directives: No Advance Directives Information Provided: No service: No Sexual orientation: Don't Know Physical Exam ED Vital Signs: Vital Signs - 24 hr 05/16/23 18:43 Temperature 98.4 F Pulse Rate 124 H Respiratory Rate 18 Blood Pressure 118/74 Pulse Oximetry 98 Oxygen Delivery Method Room Air BMI result Body Mass Index 27.5 vss Appearance: Alert.? Oriented X3.? No acute distress.? Head: Normocephalic, atraumatic, no step-offs or deformities Eyes: Pupils equal, round and reactive to light.? CVS: Normal heart rate and rhythm.? Pulses normal.? Respiratory: No respiratory distress.? Breath sounds normal.? Abdomen: Soft and nontender.? Skin: Skin warm and dry.? Normal skin color.? Normal skin turgor.? Extremities: No lower extremity edema.? No calf ttp. 5/5 strength to bilateral upper and lower extremities Neuro: Oriented X 3.? No motor deficit.? No sensory deficit. CN 2-12 intact Course Reevaluation(s) Reevaluation #1: CBC with leukocytosis however this appears to be chronic, no acute findings. CBC appears to be at patient's baseline I do not suspect acute infection. Chemistry unremarkable no acute findings requiring intervention. UA with small leukocyte esterases and 1+ bacteria will treat for UTI as she does have slight leukocytosis. Urine toxicology unremarkable. Negative salicylates, acetaminophen. [place] level in range. Ethanol negative. At this time patient to be placed into observation to allow more time to be evaluated by behavioral health team error that time observation was started common cooperative no acute distress will continue Time: 23:18 Medical Decision Making Medical Decision Making [facility] Narrative: 1849 22-year-old female presents for evaluation of suicidal ideation and thoughts of self-harm coming from residential started today. Physical examination benign Lab Data 05/16/23 19:18 05/16/23 19:18 Labs: Lab Results 05/16/23 05/16/23 05/16/23 Range/Units 18:55 18:55 18:55 WBC (4.8-10.8) X10*3/uL RBC (4.20-5.50) X10*6/uL Hgb (12.0-16.0) g/dl Hct (37.0-47.0) % MCV (80.0-98.0) fL MCH (27.0-33.0) pg MCHC (31.0-35.0) g/dl RDW (11.0-16.0) % Plt Count (160-400) X10*3/uL MPV (9.4-12.3) fL Immature Gran % (Auto) (0.0-0.4) % Neut % (Auto) (45-73) % Lymph % (Auto) (20-40) % [place] % (Auto) (2-11) % Eos % (Auto) (0-4) % Baso % (Auto) (0-2) % Lymph # (Auto) (1.2-4.9) X10*3/uL [place] # (Auto) (0.1-1.2) X10*3/uL Eos # (Auto) (0.0-0.4) X10*3/uL Baso # (Auto) (0.0-0.2) X10*3/uL Abs Immat Gran (auto) (0.00-0.03) X10*3/uL Absolute Neuts (auto) (2.0-8.3) x10*3/uL Absolute Nucleated RBC (0.0-0.012) X10*3/uL Nucleated RBC % (auto) (0.0-0.2) /100WBC Sodium (135-145) mmol/L Potassium (3.3-5.1) mmol/L Chloride (96-108) mmol/L Carbon Dioxide (22-29) mmol/L Anion Gap (12-20) BUN (9-16) mg/dL Creatinine (0.5-1.4) mg/dL Estim Creat Clear Calc Estimated GFR Random Glucose (60-115) mg/dL Calcium (8.4-10.2) mg/dL Magnesium (1.6-2.6) mg/dL Total Bilirubin (0.0-1.0) mg/dL AST (5-31) U/L ALT (0-31) U/L Alkaline Phosphatase (39-117) U/L Total Protein (6.5-8.0) g/dL Albumin (3.5-5.0) g/dL Urine Color Yellow Cancelled Urine Appearance Clear Cancelled Urine pH 5.5 (5.0-9.0) Ur Specific Pro[place] (1.005-1.025) Urine Protein (Neg-Trace) mg/dL Urine Glucose (UA) (Negative) mg/dL Urine Ketones (Negative) mg/dL Urine Blood (Negative) Urine Nitrite (Negative) Ur Leukocyte Esterase (Negative) Urine RBC (0-2) /HPF Urine WBC (0-5) /HPF Urine WBC Clumps Ur Squamous Epith Cells (0-2) /HPF Ur Transition Epith Cell Ur Renal Epithelial Cell Calcium Oxalate Crystal Leucine Crystals Cystine Crystals Tyrosine Crystals Other Crystals Urine Bacteria (None Seen) Urine Parasites Bilirubin Casts Epithelial Casts Fatty Casts Hyaline Casts (0-2) /LPF Granular Casts Waxy Casts Broad Casts RBC Casts WBC Casts Other Casts Urine Trichomonas Urine Yeast Salicylates (15-30) mg/dL Urine Opiates Screen (Not Detect) Urine Fentanyl Screen (Not Detect) Acetaminophen (<30) mcg/mL Ur Barbiturates Screen (Not Detect) Ur Phencyclidine Scrn (Not Detect) Ur Amphetamines Screen (Not Detect) U Benzodiazepines Scrn (Not Detect) [place] (0.60-1.20) mmol/L Urine Cocaine Screen (Not Detect) U Marijuana (THC) Screen (Not Detect) Ethyl Alcohol mg/dL 05/16/23 05/16/23 05/16/23 Range/Units 18:55 18:55 18:55 WBC (4.8-10.8) X10*3/uL RBC (4.20-5.50) X10*6/uL Hgb (12.0-16.0) g/dl Hct (37.0-47.0) % MCV (80.0-98.0) fL MCH (27.0-33.0) pg MCHC (31.0-35.0) g/dl RDW (11.0-16.0) % Plt Count (160-400) X10*3/uL MPV (9.4-12.3) fL Immature Gran % (Auto) (0.0-0.4) % Neut % (Auto) (45-73) % Lymph % (Auto) (20-40) % [place] % (Auto) (2-11) % Eos % (Auto) (0-4) % Baso % (Auto) (0-2) % Lymph # (Auto) (1.2-4.9) X10*3/uL [place] # (Auto) (0.1-1.2) X10*3/uL Eos # (Auto) (0.0-0.4) X10*3/uL Baso # (Auto) (0.0-0.2) X10*3/uL Abs Immat Gran (auto) (0.00-0.03) X10*3/uL Absolute Neuts (auto) (2.0-8.3) x10*3/uL Absolute Nucleated RBC (0.0-0.012) X10*3/uL Nucleated RBC % (auto) (0.0-0.2) /100WBC Sodium (135-145) mmol/L Potassium (3.3-5.1) mmol/L Chloride (96-108) mmol/L Carbon Dioxide (22-29) mmol/L Anion Gap (12-20) BUN (9-16) mg/dL Creatinine (0.5-1.4) mg/dL Estim Creat Clear Calc Estimated GFR Random Glucose (60-115) mg/dL Calcium (8.4-10.2) mg/dL Magnesium (1.6-2.6) mg/dL Total Bilirubin (0.0-1.0) mg/dL AST (5-31) U/L ALT (0-31) U/L Alkaline Phosphatase (39-117) U/L Total Protein (6.5-8.0) g/dL Albumin (3.5-5.0) g/dL Urine Color Urine Appearance Urine pH Cancelled (5.0-9.0) Ur Specific [place] 1.015 Cancelled (1.005-1.025) Urine Protein Negative Cancelled (Neg-Trace) mg/dL Urine Glucose (UA) Negative (Negative) mg/dL Urine Ketones (Negative) mg/dL Urine Blood (Negative) Urine Nitrite (Negative) Ur Leukocyte Esterase (Negative) Urine RBC (0-2) /HPF Urine WBC (0-5) /HPF Urine WBC Clumps Ur Squamous Epith Cells (0-2) /HPF Ur Transition Epith Cell Ur Renal Epithelial Cell Calcium Oxalate Crystal Leucine Crystals Cystine Crystals Tyrosine Crystals Other Crystals Urine Bacteria (None Seen) Urine Parasites Bilirubin Casts Epithelial Casts Fatty Casts Hyaline Casts (0-2) /LPF Granular Casts Waxy Casts Broad Casts RBC Casts WBC Casts Other Casts Urine Trichomonas Urine Yeast Salicylates (15-30) mg/dL Urine Opiates Screen (Not Detect) Urine Fentanyl Screen (Not Detect) Acetaminophen (<30) mcg/mL Ur Barbiturates Screen (Not Detect) Ur Phencyclidine Scrn (Not Detect) Ur Amphetamines Screen (Not Detect) U Benzodiazepines Scrn (Not Detect) [place] (0.60-1.20) mmol/L Urine Cocaine Screen (Not Detect) U Marijuana (THC) Screen (Not Detect) Ethyl Alcohol mg/dL 05/16/23 05/16/23 05/16/23 Range/Units 18:55 18:55 18:55 WBC (4.8-10.8) X10*3/uL RBC (4.20-5.50) X10*6/uL Hgb (12.0-16.0) g/dl Hct (37.0-47.0) % MCV (80.0-98.0) fL MCH (27.0-33.0) pg MCHC (31.0-35.0) g/dl RDW (11.0-16.0) % Plt Count (160-400) X10*3/uL MPV (9.4-12.3) fL Immature Gran % (Auto) (0.0-0.4) % Neut % (Auto) (45-73) % Lymph % (Auto) (20-40) % [place] % (Auto) (2-11) % Eos % (Auto) (0-4) % Baso % (Auto) (0-2) % Lymph # (Auto) (1.2-4.9) X10*3/uL [place] # (Auto) (0.1-1.2) X10*3/uL Eos # (Auto) (0.0-0.4) X10*3/uL Baso # (Auto) (0.0-0.2) X10*3/uL Abs Immat Gran (auto) (0.00-0.03) X10*3/uL Absolute Neuts (auto) (2.0-8.3) x10*3/uL Absolute Nucleated RBC (0.0-0.012) X10*3/uL Nucleated RBC % (auto) (0.0-0.2) /100WBC Sodium (135-145) mmol/L Potassium (3.3-5.1) mmol/L Chloride (96-108) mmol/L Carbon Dioxide (22-29) mmol/L Anion Gap (12-20) BUN (9-16) mg/dL Creatinine (0.5-1.4) mg/dL Estim Creat Clear Calc Estimated GFR Random Glucose (60-115) mg/dL Calcium (8.4-10.2) mg/dL Magnesium (1.6-2.6) mg/dL Total Bilirubin (0.0-1.0) mg/dL AST (5-31) U/L ALT (0-31) U/L Alkaline Phosphatase (39-117) U/L Total Protein (6.5-8.0) g/dL Albumin (3.5-5.0) g/dL Urine Color Urine Appearance Urine pH (5.0-9.0) Ur Specific [place] (1.005-1.025) Urine Protein (Neg-Trace) mg/dL Urine Glucose (UA) Cancelled (Negative) mg/dL Urine Ketones Negative Cancelled (Negative) mg/dL Urine Blood Negative Cancelled (Negative) Urine Nitrite Negative (Negative) Ur Leukocyte Esterase (Negative) Urine RBC (0-2) /HPF Urine WBC (0-5) /HPF Urine WBC Clumps Ur Squamous Epith Cells (0-2) /HPF Ur Transition Epith Cell Ur Renal Epithelial Cell Calcium Oxalate Crystal Leucine Crystals Cystine Crystals Tyrosine Crystals Other Crystals Urine Bacteria (None Seen) Urine Parasites Bilirubin Casts Epithelial Casts Fatty Casts Hyaline Casts (0-2) /LPF Granular Casts Waxy Casts Broad Casts RBC Casts WBC Casts Other Casts Urine Trichomonas Urine Yeast Salicylates (15-30) mg/dL Urine Opiates Screen (Not Detect) Urine Fentanyl Screen (Not Detect) Acetaminophen (<30) mcg/mL Ur Barbiturates Screen (Not Detect) Ur Phencyclidine Scrn (Not Detect) Ur Amphetamines Screen (Not Detect) U Benzodiazepines Scrn (Not Detect) [place] (0.60-1.20) mmol/L Urine Cocaine Screen (Not Detect) U Marijuana (THC) Screen (Not Detect) Ethyl Alcohol mg/dL 05/16/23 05/16/23 05/16/23 Range/Units 18:55 18:55 18:55 WBC (4.8-10.8) X10*3/uL RBC (4.20-5.50) X10*6/uL Hgb (12.0-16.0) g/dl Hct (37.0-47.0) % MCV (80.0-98.0) fL MCH (27.0-33.0) pg MCHC (31.0-35.0) g/dl RDW (11.0-16.0) % Plt Count (160-400) X10*3/uL MPV (9.4-12.3) fL Immature Gran % (Auto) (0.0-0.4) % Neut % (Auto) (45-73) % Lymph % (Auto) (20-40) % [place] % (Auto) (2-11) % Eos % (Auto) (0-4) % Baso % (Auto) (0-2) % Lymph # (Auto) (1.2-4.9) X10*3/uL [place] # (Auto) (0.1-1.2) X10*3/uL Eos # (Auto) (0.0-0.4) X10*3/uL Baso # (Auto) (0.0-0.2) X10*3/uL Abs Immat Gran (auto) (0.00-0.03) X10*3/uL Absolute Neuts (auto) (2.0-8.3) x10*3/uL Absolute Nucleated RBC (0.0-0.012) X10*3/uL Nucleated RBC % (auto) (0.0-0.2) /100WBC Sodium (135-145) mmol/L Potassium (3.3-5.1) mmol/L Chloride (96-108) mmol/L Carbon Dioxide (22-29) mmol/L Anion Gap (12-20) BUN (9-16) mg/dL Creatinine (0.5-1.4) mg/dL Estim Creat Clear Calc Estimated GFR Random Glucose (60-115) mg/dL Calcium (8.4-10.2) mg/dL Magnesium (1.6-2.6) mg/dL Total Bilirubin (0.0-1.0) mg/dL AST (5-31) U/L ALT (0-31) U/L Alkaline Phosphatase (39-117) U/L Total Protein (6.5-8.0) g/dL Albumin (3.5-5.0) g/dL Urine Color Urine Appearance Urine pH (5.0-9.0) Ur Specific [place] (1.005-1.025) Urine Protein (Neg-Trace) mg/dL Urine Glucose (UA) (Negative) mg/dL Urine Ketones (Negative) mg/dL Urine Blood (Negative) Urine Nitrite Cancelled (Negative) Ur Leukocyte Esterase Small (1+) H Cancelled (Negative) Urine RBC 0-2 Cancelled (0-2) /HPF Urine WBC 6-10 H (0-5) /HPF Urine WBC Clumps Ur Squamous Epith Cells (0-2) /HPF Ur Transition Epith Cell Ur Renal Epithelial Cell Calcium Oxalate Crystal Leucine Crystals Cystine Crystals Tyrosine Crystals Other Crystals Urine Bacteria (None Seen) Urine Parasites Bilirubin Casts Epithelial Casts Fatty Casts Hyaline Casts (0-2) /LPF Granular Casts Waxy Casts Broad Casts RBC Casts WBC Casts Other Casts Urine Trichomonas Urine Yeast Salicylates (15-30) mg/dL Urine Opiates Screen (Not Detect) Urine Fentanyl Screen (Not Detect) Acetaminophen (<30) mcg/mL Ur Barbiturates Screen (Not Detect) Ur Phencyclidine Scrn (Not Detect) Ur Amphetamines Screen (Not Detect) U Benzodiazepines Scrn (Not Detect) [place] (0.60-1.20) mmol/L Urine Cocaine Screen (Not Detect) U Marijuana (THC) Screen (Not Detect) Ethyl Alcohol mg/dL 05/16/23 05/16/23 05/16/23 Range/Units 18:55 18:55 18:55 WBC (4.8-10.8) X10*3/uL RBC (4.20-5.50) X10*6/uL Hgb (12.0-16.0) g/dl Hct (37.0-47.0) % MCV (80.0-98.0) fL MCH (27.0-33.0) pg MCHC (31.0-35.0) g/dl RDW (11.0-16.0) % Plt Count (160-400) X10*3/uL MPV (9.4-12.3) fL Immature Gran % (Auto) (0.0-0.4) % Neut % (Auto) (45-73) % Lymph % (Auto) (20-40) % [place] % (Auto) (2-11) % Eos % (Auto) (0-4) % Baso % (Auto) (0-2) % Lymph # (Auto) (1.2-4.9) X10*3/uL [place] # (Auto) (0.1-1.2) X10*3/uL Eos # (Auto) (0.0-0.4) X10*3/uL Baso # (Auto) (0.0-0.2) X10*3/uL Abs Immat Gran (auto) (0.00-0.03) X10*3/uL Absolute Neuts (auto) (2.0-8.3) x10*3/uL Absolute Nucleated RBC (0.0-0.012) X10*3/uL Nucleated RBC % (auto) (0.0-0.2) /100WBC Sodium (135-145) mmol/L Potassium (3.3-5.1) mmol/L Chloride (96-108) mmol/L Carbon Dioxide (22-29) mmol/L Anion Gap (12-20) BUN (9-16) mg/dL Creatinine (0.5-1.4) mg/dL Estim Creat Clear Calc Estimated GFR Random Glucose (60-115) mg/dL Calcium (8.4-10.2) mg/dL Magnesium (1.6-2.6) mg/dL Total Bilirubin (0.0-1.0) mg/dL AST (5-31) U/L ALT (0-31) U/L Alkaline Phosphatase (39-117) U/L Total Protein (6.5-8.0) g/dL Albumin (3.5-5.0) g/dL Urine Color Urine Appearance Urine pH (5.0-9.0) Ur Specific Pro[place] (1.005-1.025) Urine Protein (Neg-Trace) mg/dL Urine Glucose (UA) (Negative) mg/dL Urine Ketones (Negative) mg/dL Urine Blood (Negative) Urine Nitrite (Negative) Ur Leukocyte Esterase (Negative) Urine RBC (0-2) /HPF Urine WBC Cancelled (0-5) /HPF Urine WBC Clumps Cancelled Ur Squamous Epith Cells 6-10 Cancelled (0-2) /HPF Ur Transition Epith Cell Cancelled Ur Renal Epithelial Cell Cancelled Calcium Oxalate Crystal Cancelled Leucine Crystals Cancelled Cystine Crystals Cancelled Tyrosine Crystals Cancelled Other Crystals Cancelled Urine Bacteria 1+ Cancelled (None Seen) Urine Parasites Cancelled Bilirubin Casts Cancelled Epithelial Casts Cancelled Fatty Casts Cancelled Hyaline Casts 0-2 (0-2) /LPF Granular Casts Waxy Casts Broad Casts RBC Casts WBC Casts Other Casts Urine Trichomonas Urine Yeast Salicylates (15-30) mg/dL Urine Opiates Screen (Not Detect) Urine Fentanyl Screen (Not Detect) Acetaminophen (<30) mcg/mL Ur Barbiturates Screen (Not Detect) Ur Phencyclidine Scrn (Not Detect) Ur Amphetamines Screen (Not Detect) U Benzodiazepines Scrn (Not Detect) [place] (0.60-1.20) mmol/L Urine Cocaine Screen (Not Detect) U Marijuana (THC) Screen (Not Detect) Ethyl Alcohol mg/dL 05/16/23 05/16/23 05/16/23 Range/Units 18:55 19:18 19:33 WBC 15.1 H (4.8-10.8) X10*3/uL RBC 4.70 (4.20-5.50) X10*6/uL Hgb 14.3 (12.0-16.0) g/dl Hct 46.5 (37.0-47.0) % MCV 98.9 H (80.0-98.0) fL MCH 30.4 (27.0-33.0) pg MCHC 30.8 L (31.0-35.0) g/dl RDW 13.6 (11.0-16.0) % Plt Count 237 (160-400) X10*3/uL MPV 11.4 (9.4-12.3) fL Immature Gran % (Auto) 0.4 (0.0-0.4) % Neut % (Auto) 67.0 (45-73) % Lymph % (Auto) 19.2 L (20-40) % [place] % (Auto) 8.1 (2-11) % Eos % (Auto) 4.8 H (0-4) % Baso % (Auto) 0.5 (0-2) % Lymph # (Auto) 2.9 (1.2-4.9) X10*3/uL [place] # (Auto) 1.2 (0.1-1.2) X10*3/uL Eos # (Auto) 0.7 H (0.0-0.4) X10*3/uL Baso # (Auto) 0.1 (0.0-0.2) X10*3/uL Abs Immat Gran (auto) 0.06 H (0.00-0.03) X10*3/uL Absolute Neuts (auto) 10.1 H (2.0-8.3) x10*3/uL Absolute Nucleated RBC 0.000 (0.0-0.012) X10*3/uL Nucleated RBC % (auto) 0.0 (0.0-0.2) /100WBC Sodium 144 (135-145) mmol/L Potassium 3.8 (3.3-5.1) mmol/L Chloride 114 H (96-108) mmol/L Carbon Dioxide 19 L (22-29) mmol/L Anion Gap 15 (12-20) BUN 8 L (9-16) mg/dL Creatinine 0.77 (0.5-1.4) mg/dL Estim Creat Clear Calc 108.6 Estimated GFR > 60 Random Glucose 111 (60-115) mg/dL Calcium 9.5 (8.4-10.2) mg/dL Magnesium 1.8 (1.6-2.6) mg/dL Total Bilirubin 0.3 (0.0-1.0) mg/dL AST 14 (5-31) U/L ALT 19 (0-31) U/L Alkaline Phosphatase 84 (39-117) U/L Total Protein 7.1 (6.5-8.0) g/dL Albumin 4.3 (3.5-5.0) g/dL Urine Color Urine Appearance Urine pH (5.0-9.0) Ur Specific Prosser (1.005-1.025) Urine Protein (Neg-Trace) mg/dL Urine Glucose (UA) (Negative) mg/dL Urine Ketones (Negative) mg/dL Urine Blood (Negative) Urine Nitrite (Negative) Ur Leukocyte Esterase (Negative) Urine RBC (0-2) /HPF Urine WBC (0-5) /HPF Urine WBC Clumps Ur Squamous Epith Cells (0-2) /HPF Ur Transition Epith Cell Ur Renal Epithelial Cell Calcium Oxalate Crystal Leucine Crystals Cystine Crystals Tyrosine Crystals Other Crystals Urine Bacteria (None Seen) Urine Parasites Bilirubin Casts Epithelial Casts Fatty Casts Hyaline Casts Cancelled (0-2) /LPF Granular Casts Cancelled Waxy Casts Cancelled Broad Casts Cancelled RBC Casts Cancelled WBC Casts Cancelled Other Casts Cancelled Urine Trichomonas Cancelled Urine Yeast Cancelled Salicylates < 5.0 L (15-30) mg/dL Urine Opiates Screen Not Detected (Not Detect) Urine Fentanyl Screen Not Detected (Not Detect) Acetaminophen < 3 (<30) mcg/mL Ur Barbiturates Screen Not Detected (Not Detect) Ur Phencyclidine Scrn Not Detected (Not Detect) Ur Amphetamines Screen Not Detected (Not Detect) U Benzodiazepines Scrn Not Detected (Not Detect) [place] 0.79 (0.60-1.20) mmol/L Urine Cocaine Screen Not Detected (Not Detect) U Marijuana (THC) Screen Not Detected (Not Detect) Ethyl Alcohol < 10 mg/dL Critical Care Time Critical Care Time Critical Care Time: No Discharge Plan Discharge Clinical Impression: Acute anxiety, Suicidal ideation, UTI (urinary tract infection) Patient Disposition: Still a Patient Prescriptions: New nitrofurantoin monohyd/m-cryst [Macrobid] 100 mg capsule 100 mg PO BID 5 Days Qty: 10 0RF Rx Instructions: must administer with a meal/food No Action clozapine [Clozaril] 25 mg Tablet 25 mg PO DAILY@1500 Rx Instructions: Daily @ 3pm Klonopin 0.25 mg PO 2XD Rx Instructions: two times daily @ 8am and 8pm. clonazepam [Klonopin] 0.5 mg Tablet 0.5 mg PO DAILY Rx Instructions: Daily @ 3pm. lithium carbonate 600 mg Capsule 1,200 mg PO DAILY Rx Instructions: Daily in the morning fluvoxamine 25 mg Tablet 25 mg PO BEDTIME Rx Instructions: daily @ bedtime Aldactone 25 mg PO DAILY Colace 100 mg PO DAILY famotidine 10 mg PO 2XD Florastor 500 mg PO BEDTIME Flovent 100 mcg PO 2XD fluticasone propionate 100 mcg intranasal BEDTIME Lactaid 3,000 units PO 3XD Metamucil 1 packet PO DAILY metformin 500 mg PO DAILY metformin 850 mcg PO DAILY Rx Instructions: Once daily in evening Miralax 17 g PO 2XD senna 17.2 mg PO BEDTIME Singulair 10 mg PO BEDTIME Synthroid 50 mcg PO DAILY Rx Instructions: Daily @ 8am Vibramycin 100 mg PO DAILY Vitamin D3 125 mcg PO DAILY clozapine 100 mg Tablet 300 mg PO BEDTIME Qty: 0 0RF clozapine 50 mg Tablet 150 mg PO DAILY Qty: 0 0RF Interventions: [place]-Suicide Risk Severity Scale Last Done: 05/16/23 18:47
[2023-05-16 19:12] LABS: Appearance Urine Clear; Color Urine Yellow; Glucose Urine UA Negative (Negative); Leukocyte Esterase Urine Small (1+) (Negative); Nitrite Urine Negative (Negative); PH 5.5 (5.0-9.0); Specific Gravity - Urine 1.015 (1.005-1.025); UMIC TRIGGER UACC YES; Urine Blood Negative (Negative); Urine Ketones Negative (Negative); Urine Protein Negative (Neg-Trace)
[2023-05-16 19:14] LABS: Amphetamine Screen Urine Not Detected (Not Detect); Bacteria Urine 1+ (None Seen); Barbiturates, Urine Not Detected (Not Detect); Benzodiazepines Screen Urine Not Detected (Not Detect); Cannabinoid Screen Urine Not Detected (Not Detect); Cocaine Screen Urine Not Detected (Not Detect); Fentanyl, urine Not Detected (Not Detect); Hyaline Casts Urine 0-2 /LPF (0-2); Opiate Screen Urine Not Detected (Not Detect); Phencyclidine Screen Urine Not Detected (Not Detect); RBC Urine 0-2 /HPF (0-2); UACC Culture Trigger YES
[2023-05-16 19:23] LABS: MANUAL DIFF FLAG NO
--- NOTE | 2023-05-16 19:24 | PC.NURSE ---
patient moving about in milieu seeming to seek out 1:1 attention (which is difficult to afford at this time ) offered client alternate activities to keep her occupied. patient stated i feel i cant breathe doesnt APPEAR in distress, which we'll recheck VS within next few minutes.
[2023-05-16 19:40] LABS: Basophils Absolute Auto 0.1 X10*3/uL (0.0-0.2); Basophils Percent Auto 0.5 % (0-2); Eosinophils Absolute Auto 0.7 X10*3/uL (0.0-0.4); Eosinophils Percent Auto 4.8 % (0-4); Hematocrit 46.5 % (37.0-47.0); Hemoglobin 14.3 g/dl (12.0-16.0); Imm Gran Abs Auto 0.06 X10*3/uL (0.00-0.03); Imm Gran Pct Auto 0.4 % (0.0-0.4); Lymphocytes Absolute Auto 2.9 X10*3/uL (1.2-4.9); Lymphocytes Percent Auto 19.2 % (20-40); Mean Corpuscular HGB Conc 30.8 g/dl (31.0-35.0); Mean Corpuscular Hemoglobin 30.4 pg (27.0-33.0); Mean Corpuscular Volume 98.9 fL (80.0-98.0); Mean Platelet Volume 11.4 fL (9.4-12.3); Monocytes Absolute Auto 1.2 X10*3/uL (0.1-1.2); Monocytes Percent Auto 8.1 % (2-11); Neutrophils Absolute Auto 10.1 x10*3/uL (2.0-8.3); Platelet Count 237 X10*3/uL (160-400); Red Cell Distribution Width 13.6 % (11.0-16.0); White Blood Count 15.1 X10*3/uL (4.8-10.8)
[2023-05-16 19:49] LABS: Alanine Aminotransferase 19 U/L (0-31); Albumin Level 4.3 g/dL (3.5-5.0); Alkaline Phosphatase 84 U/L (39-117); Anion Gap 15 (12-20); Aspartate Amino Transferase 14 U/L (5-31); Bilirubin Total 0.3 mg/dL (0.0-1.0); Blood Urea Nitrogen 8 mg/dL (9-16); Calcium 9.5 mg/dL (8.4-10.2); Carbon Dioxide 19 mmol/L (22-29); Chloride 114 mmol/L (96-108); Creatinine Clr Calc Pharmacy 108.6; Estimated Glomerular Filt Rate > 60; Ethanol < 10 mg/dL; Glucose Random 111 mg/dL (60-115); Magnesium 1.8 mg/dL (1.6-2.6); Potassium 3.8 mmol/L (3.3-5.1); Sodium 144 mmol/L (135-145); Total Protein 7.1 g/dL (6.5-8.0)
[2023-05-16 19:51] LABS: Lithium 0.79 mmol/L (0.60-1.20)
[2023-05-16 20:01] LABS: Acetaminophen LAB < 3 mcg/mL (<30); Salicylate < 5.0 mg/dL (15-30)
[2023-05-16 23:55] VITALS: BP 127/76; PULSE 98; RESP 18; TEMP 36.6; O2SAT 98
[2023-05-17] MEDS: Montelukast Sodium 10 MG TABLET PO (01:16)
[2023-05-17] MEDS: cloZAPine 100 MG TABLET 300 MG PO (01:16)
[2023-05-17] MEDS: Cholecalciferol (Vitamin D3) 25 MCG TABLET 125 MCG PO (11:39)
[2023-05-17] MEDS: cloZAPine 25 MG TABLET 150 MG PO (11:39)
[2023-05-17] MEDS: clonazePAM 0.5 MG TABLET 0.25 MG PO (11:39)
[2023-05-17] MEDS: Nitrofurantoin Monohyd/M-Cryst 100 MG CAPSULE PO (11:40)
[2023-05-17] MEDS: Doxycycline Monohydrate 100 MG CAPSULE PO (11:40)
[2023-05-17] MEDS: Docusate Sodium 100 MG CAPSULE PO (11:40)
[2023-05-17] MEDS: Levothyroxine Sodium 50 MCG TABLET PO (11:40)
[2023-05-17] MEDS: metFORMIN HCl 500 MG TABLET PO (11:40)
[2023-05-17] MEDS: Spironolactone 25 MG TABLET PO (11:41)
[2023-05-17] MEDS: polyethylene glycoL 3350 17 GM POWD.PACK PO (11:41)
[2023-05-17] MEDS: Famotidine 20 MG TABLET PO (11:41)
[2023-05-17] MEDS: Lithium Carbonate 300 MG CAPSULE 1200 MG PO (11:41)
[2023-05-17] MEDS: Psyllium seed 3.7 GM PACKET PO (11:42)
[2023-05-17] MEDS: Lactase TABLET 1 TAB PO (12:50)
[2023-05-17] MEDS: cloZAPine 25 MG TABLET PO (15:28)
[2023-05-17] MEDS: clonazePAM 0.5 MG TABLET PO (15:30)
[2023-05-17 17:11] VITALS: RESP 18
--- NOTE | 2023-05-17 17:12 | PC.NURSE ---
Viktoriya has been visible in the milieu and engaging with both staff and peers this shift. Pleasant on approach and denies SI/HI/AVH. Viktoriya verbalizes that a respite stay woul dbe helpful for her. Per CARE team referral entered and Viktoriya will wait for a bed at home. Discharging to intermediate staff.
[2023-05-18 09:21] LABS: IDNOW Serial# 08D9AD1C
[2023-05-18 09:22] LABS: COVID-19 Test Negative (Negative)
== END 2023-05-17 17:14 | disposition home or self-care (01) ==
PROVIDERS: Physician Assistant; Emergency Provider Internal Medicine
DX: F41.9 Anxiety disorder, unspecified (principal); R45.851 Suicidal ideations; N39.0 Urinary tract infection, site not specified; D72.828 Other elevated white blood cell count; Z11.52 Encounter for screening for COVID-19
CPT/HCPCS: 36415; 80053; 80143; 80178; 80179; 80307; 81001; 83735; 85025; 87086; 87635; 99284; S9485

== ENCOUNTER 2023-06-16 19:15 | Emergency (ER) | payer MEDICAID, SELFPAY ==
[2023-06-16 19:26] VITALS: BP 124/78; PULSE 131; RESP 18; TEMP 36.6; O2SAT 94
[2023-06-16 19:29] VITALS: BP 129/86; PULSE 136; O2SAT 98; BMI 29.2
--- NOTE | 2023-06-16 19:33 | ECG_ITS ---
Test Reason : TACHYCARDIA Blood Pressure : / mmHG Vent. Rate : 122 BPM Atrial Rate : 122 BPM P-R Int : 112 ms QRS Dur : 068 ms QT Int : 420 ms P-R-T Axes : 000 006 025 degrees QTc Int : 598 ms Sinus tachycardia Minimal voltage criteria for LVH, may be normal variant ( R in aVL ) Borderline ECG No previous ECGs available Referred By: Jessie Daley Electronically Signed By:MATT SHARPE MD
--- NOTE | 2023-06-16 19:43 | MHC.EDTECH ---
PT stated she is allergic to dairy.
--- NOTE | 2023-06-16 20:34 | ED.PSYCH ---
HPI - Psych General Chief Complaint: Psychiatric Symptoms Stated Complaint: si Time Seen by Provider: 06/16/23 19:20 Source: patient Mode of arrival: EMS Limitations: no limitations History of Present Illness HPI Narrative: Patient comes to the emergency room via ambulance from a intermediate. Patient reports suicidal ideation. Patient states that she tried to cut her wrist with her fingernails earlier today. Patient told her nurse today that she had feelings of hurting intermediate staff. Patient denies using drugs or alcohol. Patient denies overdosing with any medications. Related Data Home Medications Medication Instructions Recorded Confirmed Aldactone 25 mg PO DAILY Obesity 05/09/23 05/16/23 Colace 100 mg PO DAILY 05/09/23 05/16/23 Florastor 500 mg PO BEDTIME 05/09/23 05/16/23 Flovent 100 mcg PO 2XD 05/09/23 05/16/23 Klonopin 0.25 mg PO 2XD 05/09/23 05/16/23 Lactaid 3,000 units PO 3XD 05/09/23 05/17/23 Metamucil 1 packet PO DAILY 05/09/23 05/17/23 Miralax 17 g PO 2XD 05/09/23 05/17/23 Singulair 10 mg PO BEDTIME 05/09/23 05/17/23 Synthroid 50 mcg PO DAILY 05/09/23 05/17/23 Vibramycin 100 mg PO DAILY 05/09/23 05/17/23 Vitamin D3 125 mcg PO DAILY 05/09/23 05/17/23 clonazepam 0.5 mg tablet (Klonopin) 0.5 mg PO DAILY 05/09/23 05/16/23 famotidine 10 mg PO 2XD 05/09/23 05/16/23 fluticasone propionate 100 mcg intranasal BEDTIME 05/09/23 05/16/23 fluvoxamine 25 mg tablet 25 mg PO BEDTIME 05/09/23 05/16/23 lithium carbonate 600 mg capsule 1,200 mg PO DAILY 05/09/23 05/16/23 metformin 500 mg PO DAILY 05/09/23 05/17/23 metformin 850 mcg PO DAILY 05/09/23 05/17/23 senna 17.2 mg PO BEDTIME 05/09/23 05/17/23 Clozaril 25 mg PO DAILY 05/16/23 05/16/23 Previous Rx's Medication Instructions Recorded clozapine 100 mg tablet 300 mg (3 x 100 mg) PO BEDTIME #0 05/12/23 tabs clozapine 50 mg tablet 150 mg (3 x 50 mg) PO DAILY #0 tabs 05/12/23 Allergies Allergy/AdvReac Type Severity Reaction Status Date / Time ibuprofen Allergy Intermediate Hives Verified 05/08/23 20:43 lactose Allergy Gastrointestinal Verified 06/16/23 20:33 Upset Review of Systems Review of Systems: Constitutional : No Weight loss, No Fever, No Chills, No Night Sweats, No Fatigue, No Malaise ENT/Mouth : No Hearing loss, No Ear Pain, No Nasal Congestion, No Sinus Pain, No Hoarseness, No sore throat, No Rhinorrhea, No Swallowing Difficulty Eyes: No Eye Pain, No Swelling, No Redness, No Foreign Body, No Discharge, No Vision Changes Cardiovascular : No Chest Pain, No SOB, No Dyspnea on Exertion, No Orthopnea, No Edema, No Palpitations Respiratory : No Cough, No Sputum, No Wheezing, No Smoke Exposure, No Dyspnea Gastrointestinal : No Nausea, No Vomiting, No Diarrhea, No Constipation, No abdominal Pain, No Hematochezia, No Melena Genitourinary : no irregular bleeding, No Dysuria, No Urinary Frequency, No Hematuria, No Urinary Incontinence, No Urgency, No Flank Pain, No Urinary Flow Changes, No Hesitancy Musculoskeletal : No joint pain, No Myalgias, No Joint Swelling Skin : No Skin Lesions, No rash Neuro : No Weakness, No Numbness, No Paresthesias, No Loss of Consciousness, No Dizziness, No Headache Psych : Complaining of anxiety, SI, vague HI Heme/Lymph: No Bruising, No Bleeding,No Lymphadenopathy Endocrine : No Polyuria, No Polydipsia, No Temperature Intolerance PMFSH Past Medical History Onset Date is defined in the Problem List Problems that require an onset date and time if occurred within 24 hrs of arrival to the ED Aortic Dissection and Rupture; Neurologic impairment; Cardiopulmonary Arrest; Endotracheal Intubation; Insertion or Replacement of Mechanical Circulatory Assist Device Medical History Mood disorder Autism PTSD (post-traumatic stress disorder) Depression Social History Social History Household Members: Other Household Members Other:: New residence, moved in Thursday Housing: House Housing Other:: 3 Do you presently have visiting nurse or other home services: No Patient Tobacco Use Status: Never used Tobacco Second Hand Smoke Exposure: No Advance Directives: No Advance Directives Information Provided: No service: No Sexual orientation: Don't Know Physical Exam Vital Signs: Vital Signs: Last Vital Signs Temp 97.9 F 06/16/23 19:26 Pulse 131 H 06/16/23 19:26 Resp 18 06/16/23 19:26 BP 124/78 06/16/23 19:26 Pulse Ox 94 06/16/23 19:26 O2 Del Method Room Air 06/16/23 19:26 BMI result Body Mass Index 29.2 Const: Other: Appearance: Alert. Oriented X3. No acute distress. Eyes: Pupils equal, round and reactive to light. ENT: Pharynx normal. Neck: Normal inspection. Neck supple. No lymph nodes noted. No crepitus CVS: Normal heart rate and rhythm. Pulses normal. Normal S1 and S2 Respiratory: No respiratory distress. Breath sounds normal. No Wheezing. No rales Abdomen: Soft and nontender. No rigidity. No distention. Skin: Skin warm and dry. Normal skin color. Normal skin turgor. Extremities: No lower extremity edema. No Lacerations. No Rash Neuro: Oriented X 3. No motor deficit. No sensory deficit. Moving all extremities. No slurred speech. CN 2 through 12 grossly intact Psych: calm, cooperative, normal affect Course Course Course Narrative: -patient's labs pending -patient on a Section 12 -care team consult pending -physician observation started at 20:35 Medical Decision Making Differential Diagnosis Differential Diagnoses: The differential diagnosis associated with the presentation includes (Anxiety, depression, SI) Admission/Observation Consideration of admission/observation: Escalation of care including admission/observation considered (Patient is on a Section 12 on physician observation waiting for the care team to evaluate the patient and determine disposition) Discharge Plan Discharge Clinical Impression: Mood disorder, Depression Patient Disposition: Still a Patient Prescriptions: No Action Clozaril 25 mg PO DAILY Klonopin 0.25 mg PO 2XD Rx Instructions: two times daily @ 8am and 8pm. clonazepam [Klonopin] 0.5 mg Tablet 0.5 mg PO DAILY Rx Instructions: Daily @ 3pm. lithium carbonate 600 mg Capsule 1,200 mg PO DAILY Rx Instructions: Daily in the morning fluvoxamine 25 mg Tablet 25 mg PO BEDTIME Rx Instructions: daily @ bedtime Aldactone 25 mg PO DAILY Colace 100 mg PO DAILY famotidine 10 mg PO 2XD Florastor 500 mg PO BEDTIME Flovent 100 mcg PO 2XD fluticasone propionate 100 mcg intranasal BEDTIME Lactaid 3,000 units PO 3XD Metamucil 1 packet PO DAILY metformin 500 mg PO DAILY metformin 850 mcg PO DAILY Rx Instructions: Once daily in evening Miralax 17 g PO 2XD senna 17.2 mg PO BEDTIME Singulair 10 mg PO BEDTIME Synthroid 50 mcg PO DAILY Rx Instructions: Daily @ 8am Vibramycin 100 mg PO DAILY Vitamin D3 125 mcg PO DAILY clozapine 100 mg Tablet 300 mg PO BEDTIME Qty: 0 0RF clozapine 50 mg Tablet 150 mg PO DAILY Qty: 0 0RF Interventions: [place]-Suicide Risk Severity Scale Last Done: 06/16/23 19:31
[2023-06-16 21:24] LABS: MANUAL DIFF FLAG NO
[2023-06-16 21:25] LABS: Basophils Absolute Auto 0.1 X10*3/uL (0.0-0.2); Basophils Percent Auto 0.4 % (0-2); Eosinophils Absolute Auto 0.5 X10*3/uL (0.0-0.4); Eosinophils Percent Auto 2.7 % (0-4); Hematocrit 42.1 % (37.0-47.0); Hemoglobin 13.6 g/dl (12.0-16.0); Imm Gran Abs Auto 0.07 X10*3/uL (0.00-0.03); Imm Gran Pct Auto 0.4 % (0.0-0.4); Lymphocytes Absolute Auto 2.7 X10*3/uL (1.2-4.9); Mean Corpuscular HGB Conc 32.3 g/dl (31.0-35.0); Mean Corpuscular Hemoglobin 30.4 pg (27.0-33.0); Mean Corpuscular Volume 94.2 fL (80.0-98.0); Mean Platelet Volume 11.6 fL (9.4-12.3); Monocytes Absolute Auto 1.2 X10*3/uL (0.1-1.2); Monocytes Percent Auto 6.7 % (2-11); Neutrophils Absolute Auto 13.5 x10*3/uL (2.0-8.3); Neutrophils Percent Auto 74.8 % (45-73); Platelet Count 267 X10*3/uL (160-400); Red Blood Count 4.47 X10*6/uL (4.20-5.50); Red Cell Distribution Width 12.3 % (11.0-16.0); White Blood Count 18.1 X10*3/uL (4.8-10.8)
[2023-06-16 21:48] LABS: Alanine Aminotransferase 11 U/L (0-31); Albumin Level 4.6 g/dL (3.5-5.0); Alkaline Phosphatase 98 U/L (39-117); Anion Gap 16 (12-20); Aspartate Amino Transferase 14 U/L (5-31); Bilirubin Direct 0.1 mg/dL (0.0-0.5); Bilirubin Total 0.3 mg/dL (0.0-1.0); Blood Urea Nitrogen 8 mg/dL (9-16); Calcium 10.2 mg/dL (8.4-10.2); Carbon Dioxide 22 mmol/L (22-29); Chloride 108 mmol/L (96-108); Creatinine Clr Calc Pharmacy 108.1; Estimated Glomerular Filt Rate > 60; Ethanol < 10 mg/dL; Glucose Random 99 mg/dL (60-115); HCG Quantitative < 2 mIU/mL; Sodium 142 mmol/L (135-145); Total Protein 7.5 g/dL (6.5-8.0)
[2023-06-16 22:04] VITALS: BP 133/83; PULSE 110; O2SAT 97
[2023-06-16 22:10] LABS: Amphetamine Screen Urine Not Detected (Not Detect); Barbiturates, Urine Not Detected (Not Detect); Benzodiazepines Screen Urine Not Detected (Not Detect); Cannabinoid Screen Urine Not Detected (Not Detect); Cocaine Screen Urine Not Detected (Not Detect); Fentanyl, urine Not Detected (Not Detect); Opiate Screen Urine Not Detected (Not Detect); Phencyclidine Screen Urine Not Detected (Not Detect)
[2023-06-16] MEDS: Ondansetron ODT 4 MG TAB.RAPDIS TRANSLINGU (22:20)
--- NOTE | 2023-06-16 22:36 | PHA.MEDREC ---
Addendum entered by Antony Recio 06/17/23 10:18: Called nurse Margaret from [facility] ([phone]). She reports that the lithium and Luvox are as shown (was previously on the Loris ER 1200mg QD, but changed back to standard lithium 600mg BID). She also verified that the Flovent is the Diskus. They are no longer using [facility] and is now using [facility]. Original Note: Pharmacy Consult ? Medication Reconciliation Pharmacy has completed the medication reconciliation. Patient confirmed medications on [facility] list. Patient gets medications from ID pharmacy called [facility]. Will have [facility] call to confirm that dose are accurate. Patient was unsure about Loris as dose may have change recently and Luvox. Patient did confirm she takes Flovent and does not take Breo. Patient reported Lactaid for dinner and lunch and sometimes for a snack. Emeli Cruz, PharmD
[2023-06-17 00:59] VITALS: BP 143/87; PULSE 105; RESP 16; TEMP 36.6; O2SAT 98
--- NOTE | 2023-06-17 01:15 | PC.NURSE ---
Nurse to nurse report provided to Citlalli RN in the POD. Pt calm and cooperative at this time. She ambulate over to the POD independently with staff escort with even/steady gait. Pt relocated to Pod bed 3
[2023-06-17] MEDS: diphenhydrAMINE HCL 25 MG CAPSULE 50 MG PO (01:42)
--- NOTE | 2023-06-17 03:20 | PC.NURSE ---
assumed care of pt at this time. pt sleeping in room resp even and unlabored.
--- NOTE | 2023-06-17 03:22 | MHC.EDTECH ---
Belongings taken by previous shift security. Unknown location. There are two bags in POD closet unlabeled. When pt wakes up tech will confirm if belongings are pt's and document a belongings list.
[2023-06-17 06:32] VITALS: BP 113/70; PULSE 94; RESP 16; TEMP 36.4; O2SAT 98
[2023-06-17] MEDS: Ondansetron ODT 4 MG TAB.RAPDIS TRANSLINGU (06:41)
--- NOTE | 2023-06-17 06:41 | PC.NURSE ---
pt reports nausea tried water/crackers with peanut butter with no improvement in sx. pt requested zofran as it helped given previously. Dr. Shoemaker verbal order of 4mg zofran translingual entered and pt medicated per aug.
--- NOTE | 2023-06-17 08:42 | PC.NURSE ---
Pt ambulatory around unit, calm and cooperative. pt requesting meds. pharmacy confirmed that they have her med list and are working on reconciling everything.
[2023-06-17] MEDS: Spironolactone 25 MG TABLET PO (11:49)
[2023-06-17] MEDS: Lithium Carbonate 300 MG CAPSULE 600 MG PO (11:50)
[2023-06-17] MEDS: clonazePAM 0.5 MG TABLET PO (11:50)
[2023-06-17] MEDS: Levothyroxine Sodium 50 MCG TABLET PO (11:53)
[2023-06-17] MEDS: cloZAPine 25 MG TABLET 150 MG PO (12:30)
[2023-06-17] MEDS: Lactase TABLET 1 TAB PO (12:30)
--- NOTE | 2023-06-17 13:11 | MHC.CARE ---
Patient evaluated by the CARE Team, she does not need an inpatient psychiatric admission at this time. custodial staff and ED provider, Dr. Israel in agreement with disposition to discharge to current providers.
== END 2023-06-17 13:34 | disposition home or self-care (01) ==
PROVIDERS: Emergency Provider Emergency Medicine
DX: F33.1 Major depressive disorder, recurrent, moderate (principal); R00.0 Tachycardia, unspecified; Z79.899 Other long term (current) drug therapy
CPT/HCPCS: 36415; 80048; 80076; 80307; 84702; 85025; 93005; 99285; S9485

== ENCOUNTER → 2023-06-16 19:33 | Outpatient (BNV) | payer MEDICAID, SELFPAY | PROVIDERS: Emergency Provider Emergency Medicine; Visit Provider Internal Medicine Cardiovascular Disease | DX: R00.0 Tachycardia, unspecified (principal) | CPT/HCPCS: 93010 ==

== ENCOUNTER 2023-06-27 21:19 | Emergency (ER) | payer OTHER, SELFPAY ==
--- NOTE | ~2023-06-27 | XR_ITS ---
EXAMINATION: XR TOES, LEFT CLINICAL INFORMATION: Great toe pain COMPARISON: None available. TECHNIQUE: 3 views of the left toes were obtained. XR/XR toe LT min 2V FINDINGS/IMPRESSION: 0.9 mm noncorticated ossific density projecting adjacent to the distal tuft of the great toe, only on a single view. This may either represent a small distal tuft fracture or debris. Soft tissue structures are within normal limits. No radiopaque foreign bodies. IMPRESSION: Unremarkable examination.
[2023-06-27 21:26] VITALS: BP 128/88; PULSE 125; O2SAT 98; BMI 25.7
--- NOTE | 2023-06-27 21:33 | ED_ITS ---
HPI - Psych General Chief Complaint: Psychiatric Symptoms Stated Complaint: crisis, SI w/ no plan, voluntarily seeking help History of Present Illness HPI Narrative: Patient is a 23-year-old female presents today with having suicidal thoughts. History of autism. History of PTSD. Patient has thoughts about cutting herself. Complaining of some abrasion to the left wrist. There is no systemic complaints did not take any overdose of medications in an use any recreational drugs. Related Data Home Medications Medication Instructions Recorded Confirmed Saccharomyces boulardii 250 mg 500 mg PO BEDTIME Probiotic 06/16/23 06/16/23 capsule (Florastor) acetaminophen 500 mg tablet 1,000 mg PO Q6H PRN Pain, Fever 06/16/23 06/16/23 (Acetaminophen Extra Strength) albuterol sulfate 90 mcg/actuation 2 puff inhalation Q4-6H PRN 06/16/23 06/16/23 aerosol inhaler Wheezing atropine 1 % eye drops 1 drp sublingual BID Sialorrhea 06/16/23 06/16/23 cholecalciferol (vitamin D3) 125 125 mcg PO DAILY Obesity 06/16/23 06/16/23 mcg (5,000 unit) tablet (Vitamin D3) clonazepam 0.5 mg tablet (Klonopin) 0.5 mg PO BID Anxiety 06/16/23 06/16/23 clonazepam 0.5 mg tablet (Klonopin) 0.5 mg PO DAILY PRN 06/16/23 06/16/23 Anxiety/Agitation clonazepam 1 mg tablet (Klonopin) 1 mg PO DAILY@1500 Anxiety 06/16/23 06/16/23 clozapine 150 mg disintegrating 150 mg PO QAM 06/16/23 06/16/23 tablet clozapine 150 mg disintegrating 300 mg PO BEDTIME Mood 06/16/23 06/16/23 tablet clozapine 25 mg disintegrating 25 mg PO DAILY@1500 Mood 06/16/23 06/16/23 tablet diphenhydramine HCl 50 mg tablet 50 mg PO Q4H PRN Itching 06/16/23 06/16/23 docusate sodium 100 mg capsule 100 mg PO DAILY Constipation 06/16/23 06/16/23 (Colace) doxycycline hyclate 100 mg capsule 100 mg PO DAILY Axillary 06/16/23 06/16/23 (Vibramycin) Hidradenitis Suppurativa famotidine 20 mg tablet (Pepcid) 20 mg PO BID GERD 06/16/23 06/16/23 fluticasone propionate 50 1 spray intranasal BEDTIME 06/16/23 06/16/23 mcg/actuation nasal Allergies spray,suspension fluvoxamine 25 mg tablet 25 mg PO BEDTIME Depression 06/16/23 06/16/23 hydroxyzine HCl 25 mg tablet 25 mg PO BID PRN Anxiety/Agitation 06/16/23 06/16/23 lactase 3,000 unit tablet (Lactaid) 3,000 unit PO BID@1200,1800 06/16/23 06/16/23 Lactose sensitivity lactase 3,000 unit tablet (Lactaid) 3,000 unit PO DAILY PRN snacks 06/16/23 06/16/23 levothyroxine 50 mcg tablet 50 mcg PO QAM Hypothyroidism 06/16/23 06/16/23 (Synthroid) lithium carbonate 600 mg capsule 600 mg PO BID Mood 06/16/23 06/16/23 metformin 500 mg tablet 500 mg PO DAILY Obesity 06/16/23 06/16/23 metformin 850 mg tablet 850 mg PO QPM Obesity 06/16/23 06/16/23 montelukast 10 mg tablet 10 mg PO BEDTIME Asthma 06/16/23 06/16/23 (Singulair) polyethylene glycol 3350 17 gram 17 g PO BID Constipation 06/16/23 06/16/23 oral powder packet (Miralax) psyllium 1 packet PO DAILY Constipation 06/16/23 06/16/23 sennosides 8.6 mg capsule (senna) 17.2 mg PO BEDTIME 06/16/23 06/16/23 spironolactone 25 mg tablet 25 mg PO DAILY Obesity 06/16/23 06/16/23 fluticasone propionate 100 1 inh inhalation BID 06/17/23 06/17/23 mcg/actuation blister powder for inhalation (Flovent Diskus) Allergies Allergy/AdvReac Type Severity Reaction Status Date / Time ibuprofen Allergy Intermediate Hives Verified 05/08/23 20:43 lactose Allergy Gastrointestinal Verified 06/16/23 20:33 Upset Review of Systems 2 Review of Systems: Positive SI Yes all other systems are reviewed and are negative PMFSH Past Medical History Onset Date is defined in the Problem List Problems that require an onset date and time if occurred within 24 hrs of arrival to the ED Aortic Dissection and Rupture; Neurologic impairment; Cardiopulmonary Arrest; Endotracheal Intubation; Insertion or Replacement of Mechanical Circulatory Assist Device Medical History Mood disorder Autism PTSD (post-traumatic stress disorder) Depression Social History Social History Household Members: Other Household Members Other:: New residence, moved in Thursday Housing: House Housing Other:: 3 Do you presently have visiting nurse or other home services: No Patient Tobacco Use Status: Never used Tobacco Smoked in Last 30 Days: No Second Hand Smoke Exposure: No Use of substances other than those prescribed or required for medical reasons: No Advance Directives: No Advance Directives Information Provided: No service: No Sexual orientation: Don't Know Physical Exam 2 Vital Signs: Vital Signs: Last Vital Signs Temp 98.5 F 06/27/23 22:38 Pulse 105 H 06/27/23 22:38 Resp 16 06/27/23 22:38 BP 127/89 06/27/23 22:38 Pulse Ox 98 06/27/23 22:38 O2 Del Method Room Air 06/27/23 22:38 BMI result Body Mass Index 25.7 Appearance: Alert. Oriented X3. No acute distress. Eyes: Pupils equal, round and reactive to light. ENT: Pharynx normal. Neck: Normal inspection. Neck supple. No lymph nodes noted. No crepitus CVS: Normal heart rate and rhythm. Pulses normal. Normal S1 and S2 Respiratory: No respiratory distress. Breath sounds normal. No Wheezing. No rales Abdomen: Soft and nontender. No rigidity. No distention. good BS x4 Skin: Skin warm and dry. Normal skin color. Normal skin turgor. Extremities: No lower extremity edema. Neurovascular intact to all extremities. No Lacerations. No Rash Neuro: Oriented X 3. No motor deficit. No sensory deficit. Moving all extermities. No slurred speech. Cranial nerves grossly intact Medical Decision Making Medical Decision Making MDM Narrative: Patient presented today with having suicidal thoughts. Positive abrasion to the wrist on the left side. Otherwise well-appearing currently medically cleared. Awaiting crisis evaluation. In no distress. My interpretation patient's toe x- ray showed no acute fracture. Differential Diagnosis Differential Diagnoses: The differential diagnosis associated with the presentation includes Depression suicidal ideation contusion fracture of the toe Admission/Observation Consideration of admission/observation: Escalation of care including admission/observation considered Lab Data 06/27/23 21:41 06/27/23 21:41 Labs: Lab Results 06/27/23 06/27/23 Range/Units 21:41 22:38 WBC 19.9 H (4.8-10.8) X10*3/uL RBC 4.41 (4.20-5.50) X10*6/uL Hgb 13.7 (12.0-16.0) g/dl Hct 42.2 (37.0-47.0) % MCV 95.7 (80.0-98.0) fL MCH 31.1 (27.0-33.0) pg MCHC 32.5 (31.0-35.0) g/dl RDW 12.5 (11.0-16.0) % Plt Count 251 (160-400) X10*3/uL MPV 11.6 (9.4-12.3) fL Immature Gran % (Auto) 0.6 H (0.0-0.4) % Neut % (Auto) 74.8 H (45-73) % Lymph % (Auto) 15.3 L (20-40) % [place] % (Auto) 6.0 (2-11) % Eos % (Auto) 2.9 (0-4) % Baso % (Auto) 0.4 (0-2) % Lymph # (Auto) 3.0 (1.2-4.9) X10*3/uL [place] # (Auto) 1.2 (0.1-1.2) X10*3/uL Eos # (Auto) 0.6 H (0.0-0.4) X10*3/uL Baso # (Auto) 0.1 (0.0-0.2) X10*3/uL Abs Immat Gran (auto) 0.11 H (0.00-0.03) X10*3/uL Absolute Neuts (auto) 14.9 H (2.0-8.3) x10*3/uL Absolute Nucleated RBC 0.000 (0.0-0.012) X10*3/uL Nucleated RBC % (auto) 0.0 (0.0-0.2) /100WBC Sodium 140 (135-145) mmol/L Potassium 3.7 (3.3-5.1) mmol/L Chloride 109 H (96-108) mmol/L Carbon Dioxide 20 L (22-29) mmol/L Anion Gap 15 (12-20) BUN 6 L (9-16) mg/dL Creatinine 0.94 (0.5-1.4) mg/dL Estim Creat Clear Calc 85.5 Estimated GFR > 60 Random Glucose 89 (60-115) mg/dL Calcium 10.2 (8.4-10.2) mg/dL Urine Color Yellow Urine Appearance Cloudy Urine pH 6.0 (5.0-9.0) Ur Specific [place] 1.010 (1.005-1.025) Urine Protein Negative (Neg-Trace) mg/dL Urine Glucose (UA) Negative (Negative) mg/dL Urine Ketones Negative (Negative) mg/dL Urine Blood Negative (Negative) Urine Nitrite Negative (Negative) Ur Leukocyte Esterase Small (1+) H (Negative) Urine Opiates Screen Not Detected (Not Detect) Urine Fentanyl Screen Not Detected (Not Detect) Ur Barbiturates Screen Not Detected (Not Detect) Ur Phencyclidine Scrn Not Detected (Not Detect) Ur Amphetamines Screen Not Detected (Not Detect) U Benzodiazepines Scrn Not Detected (Not Detect) Urine Cocaine Screen Not Detected (Not Detect) U Marijuana (THC) Screen Not Detected (Not Detect) COVID-19 (MARIA L) Negative (Negative) COVID-19 Clin Com See Note Discharge Plan Discharge Clinical Impression: Autism, Depression Patient Disposition: Still a Patient Prescriptions: No Action metformin 500 mg Tablet 500 mg PO DAILY doxycycline hyclate [Vibramycin] 100 mg Capsule 100 mg PO DAILY polyethylene glycol 3350 [Miralax] 17 gram Powder In Packet 17 g PO BID clonazepam [Klonopin] 0.5 mg Tablet 0.5 mg PO BID clonazepam [Klonopin] 0.5 mg Tablet 0.5 mg PO DAILY PRN (Reason: Anxiety/Agitation) Metamucil Packet 1 packet PO DAILY clonazepam [Klonopin] 1 mg Tablet 1 mg PO DAILY@1500 Rx Instructions: Daily at 1500 metformin 850 mg Tablet 850 mg PO QPM acetaminophen [Acetaminophen Extra Strength] 500 mg Tablet 1,000 mg PO Q6H PRN (Reason: Pain, Fever) spironolactone 25 mg Tablet 25 mg PO DAILY famotidine [Pepcid] 20 mg Tablet 20 mg PO BID fluvoxamine [Luvox] 25 mg Tablet 25 mg PO BEDTIME lithium carbonate 600 mg Capsule 600 mg PO BID levothyroxine [Synthroid] 50 mcg Tablet 50 mcg PO QAM lactase [Lactaid] 3,000 unit Tablet 3,000 unit PO BID@1200,1800 docusate sodium [Colace] 100 mg Capsule 100 mg PO DAILY montelukast [Singulair] 10 mg Tablet 10 mg PO BEDTIME hydroxyzine HCl 25 mg Tablet 25 mg PO BID PRN (Reason: Anxiety/Agitation) atropine 1 % Drops 1 drp sublingual BID fluticasone propionate [Flonase] 50 mcg/actuation [place],Suspension 1 spray INTRANASAL BEDTIME Saccharomyces boulardii [Florastor] 250 mg Capsule 500 mg PO BEDTIME clozapine 25 mg Tablet,Disintegrating 25 mg PO DAILY@1500 Rx Instructions: Daily at 1500 senna 8.6 mg Capsule 17.2 mg PO BEDTIME cholecalciferol (vitamin D3) [Vitamin D3] 125 mcg (5,000 unit) Tablet 125 mcg PO DAILY clozapine 150 mg Tablet,Disintegrating 300 mg PO BEDTIME clozapine 150 mg Tablet,Disintegrating 150 mg PO QAM diphenhydramine HCl 50 mg Tablet 50 mg PO Q4H PRN (Reason: Itching) lactase [Lactaid] 3,000 unit Tablet 3,000 unit PO DAILY PRN (Reason: snacks) Rx Instructions: administer with meals and/or snacks albuterol sulfate 90 mcg/actuation Hfa Aerosol Inhaler 2 puff INHALATION Q4-6H PRN (Reason: Wheezing) fluticasone propionate [Flovent Diskus] 100 mcg/actuation Blister With Device 1 inh INHALATION BID Interventions: [place]-Suicide Risk Severity Scale Last Done: 06/27/23 21:28
[2023-06-27 21:45] LABS: MANUAL DIFF FLAG NO
[2023-06-27 21:52] LABS: Basophils Absolute Auto 0.1 X10*3/uL (0.0-0.2); Basophils Percent Auto 0.4 % (0-2); Eosinophils Absolute Auto 0.6 X10*3/uL (0.0-0.4); Eosinophils Percent Auto 2.9 % (0-4); Hematocrit 42.2 % (37.0-47.0); Hemoglobin 13.7 g/dl (12.0-16.0); Imm Gran Abs Auto 0.11 X10*3/uL (0.00-0.03); Imm Gran Pct Auto 0.6 % (0.0-0.4); Lymphocytes Percent Auto 15.3 % (20-40); Mean Corpuscular HGB Conc 32.5 g/dl (31.0-35.0); Mean Corpuscular Hemoglobin 31.1 pg (27.0-33.0); Mean Corpuscular Volume 95.7 fL (80.0-98.0); Mean Platelet Volume 11.6 fL (9.4-12.3); Monocytes Absolute Auto 1.2 X10*3/uL (0.1-1.2); Neutrophils Absolute Auto 14.9 x10*3/uL (2.0-8.3); Neutrophils Percent Auto 74.8 % (45-73); Platelet Count 251 X10*3/uL (160-400); Red Blood Count 4.41 X10*6/uL (4.20-5.50); Red Cell Distribution Width 12.5 % (11.0-16.0); White Blood Count 19.9 X10*3/uL (4.8-10.8)
[2023-06-27 22:01] LABS: Anion Gap 15 (12-20); Blood Urea Nitrogen 6 mg/dL (9-16); Calcium 10.2 mg/dL (8.4-10.2); Carbon Dioxide 20 mmol/L (22-29); Chloride 109 mmol/L (96-108); Creatinine Clr Calc Pharmacy 85.5; Estimated Glomerular Filt Rate > 60; Glucose Random 89 mg/dL (60-115); Potassium 3.7 mmol/L (3.3-5.1); Sodium 140 mmol/L (135-145)
[2023-06-27 22:02] LABS: IDNOW Serial# 6674DD1D
[2023-06-27 22:03] LABS: COVID-19 Test Negative (Negative)
--- NOTE | 2023-06-27 22:09 | PC.NURSE ---
pt states L. great toe pain; red/swollen pt states hit toe when fell yesterday no other complaints. xray taken. pt also reports R. under arm pain/redness. Dr. Castro aware.
--- NOTE | 2023-06-27 22:13 | PC.NURSE ---
upon arrival pt changed over belongings in [facility] linen closet. sitter at bedside.
[2023-06-27 22:38] VITALS: BP 127/89; PULSE 105; RESP 16; TEMP 36.9; O2SAT 98
[2023-06-27 22:44] LABS: Appearance Urine Cloudy; Color Urine Yellow; Glucose Urine UA Negative (Negative); Leukocyte Esterase Urine Small (1+) (Negative); Nitrite Urine Negative (Negative); UMIC TRIGGER UACC YES; Urine Blood Negative (Negative); Urine Ketones Negative (Negative); Urine Protein Negative (Neg-Trace)
[2023-06-27 22:52] LABS: Amphetamine Screen Urine Not Detected (Not Detect); Barbiturates, Urine Not Detected (Not Detect); Benzodiazepines Screen Urine Not Detected (Not Detect); Cannabinoid Screen Urine Not Detected (Not Detect); Cocaine Screen Urine Not Detected (Not Detect); Fentanyl, urine Not Detected (Not Detect); Opiate Screen Urine Not Detected (Not Detect); Phencyclidine Screen Urine Not Detected (Not Detect)
[2023-06-27 22:59] LABS: Bacteria Urine 2+ (None Seen); Hyaline Casts Urine 0-2 /LPF (0-2); RBC Urine 0-2 /HPF (0-2); UACC Culture Trigger YES
[2023-06-28 08:43] VITALS: BP 115/75; PULSE 95; RESP 20; O2SAT 97
[2023-06-28 15:36] VITALS: BP 121/79; PULSE 94; RESP 17; TEMP 36.5; O2SAT 99
--- NOTE | 2023-06-28 17:25 | PC.NURSE ---
reports pain to her 1st toe on left foot. angie wrap applied for pt comfort
--- NOTE | 2023-06-28 17:38 | MHC.EDTECH ---
Patient belongings moved to locker 6.
--- NOTE | 2023-06-28 17:41 | PC.NURSE ---
CALLED [facility] FOR UPDATED MED LIST, THEY WILL BE RETURNING THE CALL WHEN THEY RETURN TO THE HOME.
--- NOTE | 2023-06-28 17:58 | PC.NURSE ---
MOVED TO POD WITH NO ISSUE. ARRIVES WITH DANNY WRAP AROUND L FOOT. CALM AND COOPERATIVE, REQUESTING TO BE ADMITTED INPT, STATES SHE REFUSES TO RETURN TO HER PRISON.STATES SHE HAS BEEN THERE FOR 2 WKS AND FEELS UNSAFE THERE, VAGUE WHEN ASKED WHY THAT IS. PT HAS HEARING AIDS IN.
--- NOTE | 2023-06-28 19:17 | PC.NURSE ---
PER SALLY FROM [facility], UPDATES TO BE PROVIDED TO HOUSE CLINICIAN ALEXA PHONE # [phone]
[2023-06-29] MEDS: Famotidine 20 MG TABLET 10 MG PO ×2 (00:04→10:33)
[2023-06-29] MEDS: polyethylene glycoL 3350 17 GM POWD.PACK PO (00:05)
[2023-06-29] MEDS: clonazePAM 0.5 MG TABLET 0.25 MG PO (00:05)
[2023-06-29] MEDS: diphenhydrAMINE HCL 25 MG CAPSULE 50 MG PO (00:05)
[2023-06-29] MEDS: Montelukast Sodium 10 MG TABLET PO (01:37)
[2023-06-29] MEDS: cloZAPine 100 MG TABLET 300 MG PO (01:37)
[2023-06-29] MEDS: fluvoxaMINE Maleate 50 MG TABLET 25 MG PO (01:37)
[2023-06-29 06:18] VITALS: BP 114/69; PULSE 93; RESP 20; TEMP 37.7; O2SAT 96
[2023-06-29] MEDS: Levothyroxine Sodium 50 MCG TABLET PO (06:18)
[2023-06-29] MEDS: Lithium Carbonate 300 MG CAPSULE 1200 MG PO (07:11)
[2023-06-29] MEDS: metFORMIN HCl 500 MG TABLET PO (07:11)
[2023-06-29 10:17] VITALS: BP 97/58; PULSE 94; RESP 12; O2SAT 97
[2023-06-29] MEDS: Docusate Sodium 100 MG CAPSULE PO (10:33)
[2023-06-29] MEDS: Doxycycline Monohydrate 100 MG CAPSULE PO (10:33)
[2023-06-29] MEDS: Cholecalciferol (Vitamin D3) 25 MCG TABLET 125 MCG PO (10:35)
--- NOTE | 2023-06-29 12:07 | PC.NURSE ---
Assumed care of patient at 1100, patient is ambulatory around [facility] pod, hyper talkative with this RN, other patients and other staff. Awaiting custodial staff to pick patient up, ETA about 1300
[2023-06-29] MEDS: Lactase TABLET 1 TAB PO (12:11)
[2023-06-29] MEDS: Acetaminophen 325 MG TABLET 975 MG PO (12:12)
[2023-06-29 14:17] VITALS: RESP 16
[2023-06-29] MEDS: polyethylene glycoL 3350 17 GM POWD.PACK 34 GM PO (16:06)
[2023-06-29] MEDS: clonazePAM 0.5 MG TABLET PO (16:06)
== END 2023-06-29 18:13 | disposition home or self-care (01) ==
PROVIDERS: Emergency Provider Emergency Medicine Emergency Medical Services
DX: F32.9 Major depressive disorder, single episode, unspecified (principal); F84.0 Autistic disorder; R45.851 Suicidal ideations; M79.675 Pain in left toe(s); Z11.52 Encounter for screening for COVID-19; F43.10 Post-traumatic stress disorder, unspecified; Z79.899 Other long term (current) drug therapy
CPT/HCPCS: 73660; 80048; 80307; 81001; 85025; 87086; 87635; 99285; S9485

== ENCOUNTER 2023-08-03 20:23 | Emergency (ER) | payer OTHER, SELFPAY ==
--- NOTE | ~2023-08-03 | CT_ITS ---
EXAMINATION: CT HEAD WITHOUT CONTRAST CLINICAL INFORMATION: Pain. COMPARISON: None. TECHNIQUE: Contiguous axial imaging was performed from the skullbase to vertex without intravenous administration of contrast. This CT examination was performed using dose optimization techniques as appropriate, variously including the following: *Automated exposure control *Adjustment of mA and/or kV according to patient size (this includes techniques or standardized protocols for targeted exams where dose is matched to indication/reason for exam; i.e. extremities or head) *Use of iterative reconstruction technique DLP: 594 mGy-cm. FINDINGS: There is no evidence of acute intracranial hemorrhage or territorial infarction. No abnormal mass effect or midline shift is seen. [place] to white matter differentiation is well preserved. No extra-axial fluid collections are identified. The ventricles are normal in size. There is no abnormal attenuation within the brain parenchyma. The osseous structures and soft tissues are normal. The mastoid air cells and visualized portions of the paranasal sinuses are well aerated. CT/CT head/brain wo IV con IMPRESSION: No acute intracranial pathology.
--- NOTE | ~2023-08-03 | XR_ITS ---
EXAMINATION: XR HAND, RIGHT CLINICAL INFORMATION: Trauma. Pain. COMPARISON: None available. TECHNIQUE: Three views of the right hand. FINDINGS: The bones and soft tissues are normal. No fracture. Alignment is anatomic. Joint spaces are maintained. No erosions or soft tissue calcifications. XR/XR hand RT min 3V IMPRESSION: Normal right hand.
[2023-08-03 20:36] VITALS: BP 139/97; PULSE 108; RESP 18; TEMP 36.6; O2SAT 100; BMI 32.7
--- NOTE | 2023-08-03 21:01 | ED.GENADULT ---
HPI - General Adult General Chief complaint: Psychiatric Symptoms Stated complaint: SI refusing meds,UTI Time Seen by Provider: 08/03/23 20:49 Source: patient, RN notes reviewed and old records reviewed Mode of arrival: ambulatory Limitations: no limitations History of Present Illness HPI narrative: 23-year-old female with past medical history significant for PTSD, autism, mood disorder presents for evaluation ?anger. ? Patient reports increased anger for the last 6 days. She states that she has not been able to sleep last 6 days. She reports depression with suicidal ideation. She reports self-harm by ?hitting my head against the wall. ? She also complains of cutting her left forearm Patient apparently has been refusing to take her medications her last few days per her pen[facility] Related Data Home Medications Medication Instructions Recorded Confirmed acetaminophen 500 mg tablet 1,000 mg PO Q6H PRN Pain, Fever 06/16/23 08/03/23 (Acetaminophen Extra Strength) albuterol sulfate 90 mcg/actuation 2 puff inhalation Q4-6H PRN 06/16/23 08/03/23 aerosol inhaler Wheezing cholecalciferol (vitamin D3) 125 125 mcg PO DAILY Obesity 06/16/23 08/03/23 mcg (5,000 unit) tablet (Vitamin D3) clonazepam 0.5 mg tablet (Klonopin) 0.5 mg PO DAILY PRN 06/16/23 08/03/23 Anxiety/Agitation clonazepam 1 mg tablet (Klonopin) 0.5 mg PO BID Anxiety 06/16/23 08/03/23 clozapine 150 mg disintegrating 300 mg PO BEDTIME Mood 06/16/23 08/03/23 tablet clozapine 25 mg disintegrating 25 mg PO DAILY@1500 Mood 06/16/23 08/03/23 tablet fluticasone propionate 50 1 spray intranasal BEDTIME 06/16/23 08/03/23 mcg/actuation nasal Allergies spray,suspension hydroxyzine HCl 25 mg tablet 25 mg PO BID PRN Anxiety/Agitation 06/16/23 08/03/23 lithium carbonate 600 mg capsule 600 mg PO BID Mood 06/16/23 08/03/23 metformin 500 mg tablet 500 mg PO DAILY Obesity 06/16/23 08/03/23 montelukast 10 mg tablet 10 mg PO BEDTIME Asthma 06/16/23 08/03/23 (Singulair) psyllium 1 packet PO DAILY Constipation 06/16/23 08/03/23 fluticasone propionate 100 1 inh inhalation BID 06/17/23 08/03/23 mcg/actuation blister powder for inhalation (Flovent Diskus) aluminum-mag hydroxide-simethicone 40 ml PO Q4-6H PRN Upset Stomach 06/28/23 08/03/23 200 mg-200 mg-20 mg/5 mL oral susp bisacodyl 5 mg tablet,delayed 10 mg PO BEDTIME PRN Constipation 06/28/23 08/03/23 release (Dulcolax (bisacodyl)) loperamide 1 mg/7.5 mL oral liquid 2 mg PO TID PRN Diarrhea 06/28/23 08/03/23 clonazepam 1 mg tablet 1 mg PO BEDTIME PRN Anxiety 08/03/23 08/03/23 clozapine 50 mg tablet 150 mg PO DAILY 08/03/23 08/03/23 cyanocobalamin (vitamin B-12) 1,000 mcg PO DAILY 08/03/23 08/03/23 1,000 mcg tablet dextromethorphan-guaifenesin 10 10 ml PO Q4H PRN Congestion 08/03/23 08/03/23 mg-100 mg/5 mL oral syrup famotidine 10 mg tablet 10 mg PO BID 08/03/23 08/03/23 fluvoxamine 25 mg tablet 25 mg PO BEDTIME 08/03/23 08/03/23 levothyroxine 50 mcg tablet 50 mcg PO DAILY@0600 08/03/23 08/03/23 metformin 850 mg tablet 850 mg PO BEDTIME 08/03/23 08/03/23 nitrofurantoin 1 cap PO BID 08/03/23 08/03/23 monohydrate/macrocrystals 100 mg capsule polyethylene glycol 3350 17 17 g PO DAILY 08/03/23 08/03/23 gram/dose oral powder quetiapine 50 mg tablet 50 mg PO BEDTIME 08/03/23 08/03/23 sennosides 8.6 mg tablet (senna) 17.2 mg PO DAILY 08/03/23 08/03/23 spironolactone 25 mg tablet 25 mg PO DAILY 08/03/23 08/03/23 Allergies Allergy/AdvReac Type Severity Reaction Status Date / Time ibuprofen Allergy Intermediate Hives Verified 12/01/23 20:43 lactose Allergy Gastrointestinal Verified 06/16/23 20:33 Upset Review of Systems Constitutional: Constitutional: Denies chills, Denies fever(s) and Reports headache(s) ENT: Reports headache(s) Cardiovascular: Cardiovascular: Denies chest pain and Denies dyspnea Respiratory: Respiratory: Denies cough and Denies dyspnea Gastrointestinal: Gastrointestinal: Denies abdominal pain, Denies nausea and Denies vomiting Integumentary/Breasts: Skin/Breast: Reports wounds Neurologic: Reports headache(s) PMFSH Past Medical History Medical History Mood disorder Autism PTSD (post-traumatic stress disorder) Depression Social History Social History Household Members: Other Household Members Other:: New residence, moved in Thursday Housing: House Housing Other:: 3 Do you presently have visiting nurse or other home services: No Patient Tobacco Use Status: Never used Tobacco Second Hand Smoke Exposure: No Advance Directives: No Advance Directives Information Provided: No Healthcare Proxy: No Guardian: Yes (Yes: there is a conservatorship through [employer] court.) service: No Sexual orientation: Don't Know Physical Exam ED Vital Signs: Vital Signs - 24 hr 08/03/23 20:36 Temperature 97.8 F Pulse Rate 108 H Respiratory Rate 18 Blood Pressure 139/97 H Pulse Oximetry 100 Oxygen Delivery Method Room Air BMI result Body Mass Index 32.7 Const General: healthy appearing, comfortable, no acute distress, alert and awake Nutritional Appearance: well nourished Orientation/consciousness: patient oriented x3 HENMT Other: Patient has a contusion to the center of the forehead. No deep wounds or lacerations. Eyes Eyelids: Yes eyelids normal Conjunctivae: conjunctivae normal Sclerae: sclerae normal Corneas: corneas normal Pupils: Equal, round and reactive pupils present EOM: EOMs intact bilaterally Neck Neck: Yes full ROM Resp Effort & Inspection: normal respiratory effort, able to speak in complete sentences and not labored GI Inspection: No distended Palpation (GI): Soft to palpation, not firm, nontender, no guarding and not rigid Skin Other: Very subtle superficial abrasion to the ventral left forearm. No deep wounds/laceration General skin exam: elasticity normal Neuro General: patient oriented x3 Cranial nerves: Yes CN's II-XII intact bilaterally, Yes Equal, round and reactive pupils present and Yes Bilaterally intact EOM present Cognition (Neuro): normal cognition Extrem Other: Patient has an abrasion to the right 5th MCP joint. Minimal edema and tenderness to the area. Full range of motion to all fingers of the right hand. No wrist tenderness Course Reevaluation(s) Reevaluation #1: Patient is medically cleared for care team evaluate Time: 00:41 Reevaluation #2: Physician observation ended at 311pm. Patient seen and cleared by CARE team. Plan is to follow up with outpatient providers NAD, lungs clear, CV RRR, Abd nontender, Neuro intact. Disposition is for home. Medications Administered Generic Name Dose Route Start Last Admin Trade Name Freq PRN Reason Stop Dose Admin Clonazepam 0.5 mg 08/04/23 09:00 08/04/23 10:42 Clonazepam 0.5 Mg Tablet PO 0.5 mg BID JARETT Administration Clozapine 150 mg 08/04/23 09:00 08/04/23 10:45 Clozapine 100 Mg Tablet PO 150 mg DAILY JARETT Administration Cyanocobalamin 1,000 mcg 08/04/23 09:00 08/04/23 10:44 Cyanocobalamin (Vitamin B-12) 1,000 Mcg Tablet PO 1,000 mcg DAILY JARETT Administration Famotidine 10 mg 08/04/23 09:00 08/04/23 10:44 Famotidine 20 Mg Tablet PO 10 mg BID JARETT Administration Fluticasone Propionate 1 puff 08/04/23 09:00 08/04/23 10:48 Fluticasone Propionate 100 Mcg Blst.W.Dev INHALE 1 puff RBID JARETT Administration Levothyroxine Sodium 50 mcg 08/04/23 07:30 08/04/23 10:44 Levothyroxine Sodium 50 Mcg Tablet PO 50 mcg DAILY@0600 JARETT Administration [place] Carbonate 600 mg 08/04/23 09:00 08/04/23 10:40 [place] Carbonate 300 Mg Capsule PO 600 mg BID JARETT Administration Metformin HCl 500 mg 08/04/23 09:00 08/04/23 10:42 Metformin Hcl 500 Mg Tablet PO 500 mg DAILY JARETT Administration Nitrofurantoin Macrocrystals 100 mg 08/04/23 09:00 08/04/23 10:39 Nitrofurantoin Monohyd/M-Cryst 100 Mg Capsule PO 100 mg BID JARETT Administration Polyethylene Glycol 17 gm 08/04/23 09:00 08/04/23 10:43 Polyethylene Glycol 3350 17 Gm Powd.Pack PO 17 gm DAILY JARETT Administration Psyllium Hydrophilic Mucilloid 3.7 gm 08/04/23 09:00 08/04/23 10:44 Psyllium Seed 3.7 Gm Packet PO 3.7 gm DAILY JARETT Administration Senna 17.2 mg 08/04/23 09:00 08/04/23 10:42 Sennosides 8.6 Mg Tablet PO 17.2 mg DAILY JARETT Administration Spironolactone 25 mg 08/04/23 09:00 08/04/23 10:44 Spironolactone 25 Mg Tablet PO 25 mg DAILY JARETT Administration Protocol Vitamin D 125 mcg 08/04/23 09:00 08/04/23 10:40 Cholecalciferol (Vitamin D3) 25 Mcg Tablet PO 125 mcg DAILY JARETT Administration Medical Decision Making Medical Decision Making [facility] Narrative: 23-year-old female with history as documented above presents for evaluation of suicidal ideation, medication noncompliance and self-harm. She has no deep wounds or lacerations requiring suturing. Will get a CT scan of brain given the self encouraged head trauma. We are an x-ray of the right hand she also reports punching wall. Once medically cleared, she will require care team evaluation Differential Diagnosis Differential Diagnoses: The differential diagnosis associated with the presentation includes Depression Suicidal ideation Mood disorder Medication noncompliance Hand fracture Hand contusion Forehead contusion Lab Data [facility] Lab Attestation statement: I reviewed the patient's lab results. Mild leukocytosis to 13.4. No anemia, normal platelet count. No significant electrolyte abnormalities. 08/03/23 21:04 08/03/23 21:04 Labs: Lab Results 08/03/23 08/04/23 Range/Units 21:04 13:54 WBC 13.4 H (4.8-10.8) X10*3/uL RBC 4.36 (4.20-5.50) X10*6/uL Hgb 13.0 (12.0-16.0) g/dl Hct 39.3 (37.0-47.0) % MCV 90.1 (80.0-98.0) fL MCH 29.8 (27.0-33.0) pg MCHC 33.1 (31.0-35.0) g/dl RDW 13.2 (11.0-16.0) % Plt Count 253 (160-400) X10*3/uL MPV 11.4 (9.4-12.3) fL Immature Gran % (Auto) 0.4 (0.0-0.4) % Neut % (Auto) 64.1 (45-73) % Lymph % (Auto) 22.8 (20-40) % [place] % (Auto) 8.3 (2-11) % Eos % (Auto) 4.0 (0-4) % Baso % (Auto) 0.4 (0-2) % Lymph # (Auto) 3.1 (1.2-4.9) X10*3/uL [place] # (Auto) 1.1 (0.1-1.2) X10*3/uL Eos # (Auto) 0.5 H (0.0-0.4) X10*3/uL Baso # (Auto) 0.1 (0.0-0.2) X10*3/uL Abs Immat Gran (auto) 0.05 H (0.00-0.03) X10*3/uL Absolute Neuts (auto) 8.6 H (2.0-8.3) x10*3/uL Absolute Nucleated RBC 0.000 (0.0-0.012) X10*3/uL Nucleated RBC % (auto) 0.0 (0.0-0.2) /100WBC Sodium 143 (135-145) mmol/L Potassium 3.6 (3.3-5.1) mmol/L Chloride 109 H (96-108) mmol/L Carbon Dioxide 24 (22-29) mmol/L Anion Gap 14 (12-20) BUN 8 L (9-16) mg/dL Creatinine 0.79 (0.5-1.4) mg/dL Estim Creat Clear Calc 110.2 Estimated GFR > 60 Random Glucose 116 H (60-115) mg/dL Calcium 10.5 H (8.4-10.2) mg/dL Total Bilirubin 0.4 (0.0-1.0) mg/dL AST 27 (5-31) U/L ALT 30 (0-31) U/L Alkaline Phosphatase 92 (39-117) U/L Total Protein 7.4 (6.5-8.0) g/dL Albumin 4.6 (3.5-5.0) g/dL TSH 2.83 (0.32-4.0) uIU/mL Urine Color Yellow Urine Appearance Clear Urine pH 6.5 (5.0-9.0) Ur Specific [place] 1.015 (1.005-1.025) Urine Protein Negative (Neg-Trace) mg/dL Urine Glucose (UA) Negative (Negative) mg/dL Urine Ketones Negative (Negative) mg/dL Urine Blood Negative (Negative) Urine Nitrite Negative (Negative) Ur Leukocyte Esterase Small (1+) H (Negative) Urine RBC 0-2 (0-2) /HPF Urine WBC 6-10 H (0-5) /HPF Ur Squamous Epith Cells 11-20 (0-2) /HPF Urine Bacteria 1+ (None Seen) Hyaline Casts 0-2 (0-2) /LPF Urine Test NEGATIVE (NEGATIVE) Urine Opiates Screen Not Detected (Not Detect) Urine Fentanyl Screen Not Detected (Not Detect) Ur Barbiturates Screen Not Detected (Not Detect) Ur Phencyclidine Scrn Not Detected (Not Detect) Ur Amphetamines Screen Not Detected (Not Detect) U Benzodiazepines Scrn Not Detected (Not Detect) [place] 0.62 (0.60-1.20) mmol/L Urine Cocaine Screen Not Detected (Not Detect) U Marijuana (THC) Screen Not Detected (Not Detect) Ethyl Alcohol < 10 mg/dL Independent Interpretation I performed an independent interpretation of an: Plain X-Ray (No acute fracture of the hand) and CT Scan (No acute intracranial hemorrhage) Radiology Impression Discussion of test interpretation with radiology: I have reviewed the radiologist's reading. (Normal right hand x-ray) Radiologist Impression: Followed Discharge Plan Discharge Clinical Impression: Depression, Contusion of hand Patient Disposition: Still a Patient Instructions: Depression (ED), Contusion in Adults (ED) Additional Instructions: return for worsening symptoms, vomiting, diarrhea or any other concerns. please follow up with your mental health providers. continue your macrobid. Prescriptions: No Action metformin 500 mg Tablet 500 mg PO DAILY clonazepam [Klonopin] 0.5 mg Tablet 0.5 mg PO DAILY PRN (Reason: Anxiety/Agitation) Metamucil Packet 1 packet PO DAILY clonazepam [Klonopin] 1 mg Tablet 0.5 mg PO BID Rx Instructions: Daily at 1500 acetaminophen [Acetaminophen Extra Strength] 500 mg Tablet 1,000 mg PO Q6H PRN (Reason: Pain, Fever) lithium carbonate 600 mg Capsule 600 mg PO BID montelukast [Singulair] 10 mg Tablet 10 mg PO BEDTIME hydroxyzine HCl 25 mg Tablet 25 mg PO BID PRN (Reason: Anxiety/Agitation) fluticasone propionate [Flonase] 50 mcg/actuation [place],Suspension 1 spray INTRANASAL BEDTIME clozapine 25 mg Tablet,Disintegrating 25 mg PO DAILY@1500 Rx Instructions: Daily at 1500 cholecalciferol (vitamin D3) [Vitamin D3] 125 mcg (5,000 unit) Tablet 125 mcg PO DAILY clozapine 150 mg Tablet,Disintegrating 300 mg PO BEDTIME albuterol sulfate 90 mcg/actuation Hfa Aerosol Inhaler 2 puff INHALATION Q4-6H PRN (Reason: Wheezing) fluticasone propionate [Flovent Diskus] 100 mcg/actuation Blister With Device 1 inh INHALATION BID bisacodyl [Dulcolax (bisacodyl)] 5 mg Tablet,Delayed Release (Dr/Ec) 10 mg PO BEDTIME PRN (Reason: Constipation) alum-mag hydroxide-simeth [Mylanta] 200-200-20 mg/5 mL Suspension 40 ml PO Q4-6H PRN (Reason: Upset Stomach) loperamide 1 mg/7.5 mL Liquid 2 mg PO TID PRN (Reason: Diarrhea) Rx Instructions: administer after each loose stool until symptoms controlled; do not exceed 16 mg per 24 hrs clonazepam 1 mg tablet 1 mg PO BEDTIME PRN (Reason: Anxiety) fluvoxamine 25 mg tablet 25 mg PO BEDTIME quetiapine 50 mg tablet 50 mg PO BEDTIME sennosides [senna] 8.6 mg tablet 17.2 mg PO DAILY famotidine 10 mg tablet 10 mg PO BID metformin 850 mg tablet 850 mg PO BEDTIME cyanocobalamin (vitamin B-12) 1,000 mcg tablet 1,000 mcg PO DAILY spironolactone 25 mg tablet 25 mg PO DAILY levothyroxine 50 mcg tablet 50 mcg PO DAILY@0600 polyethylene glycol 3350 17 gram/dose powder 17 g PO DAILY clozapine 50 mg Tablet 150 mg PO DAILY dextromethorphan-guaifenesin [Robitussin-DM] 10-100 mg/5 mL Syrup 10 ml PO Q4H PRN (Reason: Congestion) nitrofurantoin monohyd/m-cryst 100 mg capsule 1 cap PO BID Rx Instructions: take for 5 days ending on Interventions: [place]-Suicide Risk Severity Scale Last Done: 08/04/23 13:00
[2023-08-03 21:09] LABS: MANUAL DIFF FLAG NO
[2023-08-03 21:11] LABS: Basophils Absolute Auto 0.1 X10*3/uL (0.0-0.2); Basophils Percent Auto 0.4 % (0-2); Eosinophils Absolute Auto 0.5 X10*3/uL (0.0-0.4); Hematocrit 39.3 % (37.0-47.0); Imm Gran Abs Auto 0.05 X10*3/uL (0.00-0.03); Imm Gran Pct Auto 0.4 % (0.0-0.4); Lymphocytes Absolute Auto 3.1 X10*3/uL (1.2-4.9); Lymphocytes Percent Auto 22.8 % (20-40); Mean Corpuscular HGB Conc 33.1 g/dl (31.0-35.0); Mean Corpuscular Hemoglobin 29.8 pg (27.0-33.0); Mean Corpuscular Volume 90.1 fL (80.0-98.0); Mean Platelet Volume 11.4 fL (9.4-12.3); Monocytes Absolute Auto 1.1 X10*3/uL (0.1-1.2); Monocytes Percent Auto 8.3 % (2-11); Neutrophils Absolute Auto 8.6 x10*3/uL (2.0-8.3); Neutrophils Percent Auto 64.1 % (45-73); Platelet Count 253 X10*3/uL (160-400); Red Blood Count 4.36 X10*6/uL (4.20-5.50); Red Cell Distribution Width 13.2 % (11.0-16.0); White Blood Count 13.4 X10*3/uL (4.8-10.8)
[2023-08-03 21:22] LABS: Lithium 0.62 mmol/L (0.60-1.20)
[2023-08-03 21:31] LABS: Alanine Aminotransferase 30 U/L (0-31); Albumin Level 4.6 g/dL (3.5-5.0); Alkaline Phosphatase 92 U/L (39-117); Anion Gap 14 (12-20); Aspartate Amino Transferase 27 U/L (5-31); Bilirubin Total 0.4 mg/dL (0.0-1.0); Blood Urea Nitrogen 8 mg/dL (9-16); Calcium 10.5 mg/dL (8.4-10.2); Carbon Dioxide 24 mmol/L (22-29); Chloride 109 mmol/L (96-108); Creatinine Clr Calc Pharmacy 110.2; Estimated Glomerular Filt Rate > 60; Ethanol < 10 mg/dL; Glucose Random 116 mg/dL (60-115); Potassium 3.6 mmol/L (3.3-5.1); Sodium 143 mmol/L (135-145); Total Protein 7.4 g/dL (6.5-8.0)
[2023-08-03 21:51] LABS: TSH reflex Free T4 2.83 uIU/mL (0.32-4.0)
--- NOTE | 2023-08-03 22:48 | PHA.MEDREC ---
Pharmacy Consult ? Medication Reconciliation Pharmacy has completed the medication reconciliation.pharmacy has reviewed the med rec done by Brandon using list from [facility] and claim history.
--- NOTE | 2023-08-04 06:31 | PC.NURSE ---
Patient slept through the night, no distress observed/reported, patient is developmentally delayed lives in fpc, care consult ordered for SI awaiting assessment, med rec completed/pending provider's approval, urine pending at this time patent tried but unable to provide urine, VSS, no behavior issues, will continue to monitor.
[2023-08-04] MEDS: Nitrofurantoin Monohyd/M-Cryst 100 MG CAPSULE PO (10:39)
[2023-08-04] MEDS: Lithium Carbonate 300 MG CAPSULE 600 MG PO (10:40)
[2023-08-04] MEDS: Cholecalciferol (Vitamin D3) 25 MCG TABLET 125 MCG PO (10:40)
[2023-08-04] MEDS: metFORMIN HCl 500 MG TABLET PO (10:42)
[2023-08-04] MEDS: Sennosides 8.6 MG TABLET 17.2 MG PO (10:42)
[2023-08-04] MEDS: clonazePAM 0.5 MG TABLET PO (10:42)
[2023-08-04] MEDS: polyethylene glycoL 3350 17 GM POWD.PACK PO (10:43)
[2023-08-04] MEDS: Levothyroxine Sodium 50 MCG TABLET PO (10:44)
[2023-08-04] MEDS: Spironolactone 25 MG TABLET PO (10:44)
[2023-08-04] MEDS: Famotidine 20 MG TABLET 10 MG PO (10:44)
[2023-08-04] MEDS: Cyanocobalamin (Vitamin B-12) 1,000 MCG TABLET 1000 MCG PO (10:44)
[2023-08-04] MEDS: Psyllium seed 3.7 GM PACKET PO (10:44)
[2023-08-04] MEDS: cloZAPine 100 MG TABLET 150 MG PO (10:45)
[2023-08-04] MEDS: Fluticasone Propionate 100 MCG BLST.W.DEV 1 PUFF INHALE (10:48)
[2023-08-04 14:06] LABS: Appearance Urine Clear; Color Urine Yellow; Glucose Urine UA Negative (Negative); Leukocyte Esterase Urine Small (1+) (Negative); Nitrite Urine Negative (Negative); PH 6.5 (5.0-9.0); Specific Gravity - Urine 1.015 (1.005-1.025); UMIC TRIGGER UA YES; UPreg QC Valid YES; Urine Blood Negative (Negative); Urine Ketones Negative (Negative); Urine Pregnancy NEGATIVE (NEGATIVE); Urine Protein Negative (Neg-Trace)
[2023-08-04 14:16] LABS: Amphetamine Screen Urine Not Detected (Not Detect); Barbiturates, Urine Not Detected (Not Detect); Benzodiazepines Screen Urine Not Detected (Not Detect); Cannabinoid Screen Urine Not Detected (Not Detect); Cocaine Screen Urine Not Detected (Not Detect); Fentanyl, urine Not Detected (Not Detect); Opiate Screen Urine Not Detected (Not Detect); Phencyclidine Screen Urine Not Detected (Not Detect)
[2023-08-04 14:23] LABS: Bacteria Urine 1+ (None Seen); Hyaline Casts Urine 0-2 /LPF (0-2); RBC Urine 0-2 /HPF (0-2)
== END 2023-08-04 17:03 | disposition still patient (30) ==
PROVIDERS: Physician Assistant; Emergency Provider Emergency Medicine
DX: F32.A Depression, unspecified (principal); S60.221A Contusion of right hand, initial encounter; S00.83XA Contusion of other part of head, initial encounter; W22.09XA Striking against other stationary object, initial encounter; S50.812A Abrasion of left forearm, initial encounter; S60.511A Abrasion of right hand, initial encounter; X78.9XXA Intentional self-harm by unspecified sharp object, initial encounter; F43.10 Post-traumatic stress disorder, unspecified; F84.0 Autistic disorder; Y93.9 Activity, unspecified; Y92.89 Other specified places as the place of occurrence of the external cause; Y99.9 Unspecified external cause status; Z79.899 Other long term (current) drug therapy; Z91.148 Patient's other noncompliance with medication regimen for other reason
CPT/HCPCS: 36415; 70450; 73130; 80053; 80178; 80307; 81001; 81025; 84443; 85025; 99284; S9485

== ENCOUNTER 2023-08-30 13:20 | Emergency (ER) | payer OTHER, SELFPAY ==
[2023-08-30 13:28] VITALS: BP 129/87; BP 138/86; PULSE 101; PULSE 114; RESP 16; TEMP 36.7; O2SAT 100; O2SAT 99; BMI 31.0
[2023-08-30 13:31] VITALS: PULSE 98; RESP 14; O2SAT 98
--- NOTE | 2023-08-30 13:34 | PC.NURSE ---
Pt presents to the ED today after calling 911 due to feeling like she has increased suicidal thoughts. She denies a plan. She reports that she felt like she was not getting enough attention and needed to call for help. Pt is calm and cooperative, alert and oriented x4, ambulatory around BH pod, offering no complaints to this RN
[2023-08-30 13:47] LABS: MANUAL DIFF FLAG NO
[2023-08-30 13:51] LABS: Basophils Absolute Auto 0.1 X10*3/uL (0.0-0.2); Basophils Percent Auto 0.3 % (0-2); Eosinophils Absolute Auto 0.4 X10*3/uL (0.0-0.4); Eosinophils Percent Auto 2.6 % (0-4); Hematocrit 42.1 % (37.0-47.0); Hemoglobin 13.5 g/dl (12.0-16.0); Imm Gran Abs Auto 0.05 X10*3/uL (0.00-0.03); Imm Gran Pct Auto 0.3 % (0.0-0.4); Lymphocytes Absolute Auto 2.1 X10*3/uL (1.2-4.9); Lymphocytes Percent Auto 12.4 % (20-40); Mean Corpuscular HGB Conc 32.1 g/dl (31.0-35.0); Mean Corpuscular Hemoglobin 29.8 pg (27.0-33.0); Mean Corpuscular Volume 92.9 fL (80.0-98.0); Mean Platelet Volume 11.9 fL (9.4-12.3); Monocytes Absolute Auto 0.9 X10*3/uL (0.1-1.2); Monocytes Percent Auto 5.2 % (2-11); Neutrophils Absolute Auto 13.3 x10*3/uL (2.0-8.3); Neutrophils Percent Auto 79.2 % (45-73); Platelet Count 259 X10*3/uL (160-400); Red Blood Count 4.53 X10*6/uL (4.20-5.50); Red Cell Distribution Width 13.5 % (11.0-16.0); White Blood Count 16.8 X10*3/uL (4.8-10.8)
[2023-08-30 14:05] LABS: Alanine Aminotransferase 29 U/L (0-31); Albumin Level 4.3 g/dL (3.5-5.0); Alkaline Phosphatase 101 U/L (39-117); Anion Gap 13 (12-20); Aspartate Amino Transferase 30 U/L (5-31); Bilirubin Total 0.4 mg/dL (0.0-1.0); Blood Urea Nitrogen 8 mg/dL (9-16); Calcium 10.9 mg/dL (8.4-10.2); Carbon Dioxide 23 mmol/L (22-29); Chloride 108 mmol/L (96-108); Estimated Glomerular Filt Rate > 60; Ethanol < 10 mg/dL; Glucose Random 103 mg/dL (60-115); Potassium 4.1 mmol/L (3.3-5.1); Sodium 140 mmol/L (135-145); Total Protein 7.2 g/dL (6.5-8.0)
[2023-08-30 14:06] LABS: COVID-19 Test Negative (Negative); IDNOW Serial# 08D9AD1C
[2023-08-30 14:07] LABS: Acetaminophen LAB < 3 mcg/mL (<30); Salicylate < 5.0 mg/dL (15-30)
[2023-08-30 14:32] LABS: Appearance Urine Clear; Color Urine Yellow; Glucose Urine UA Negative (Negative); Leukocyte Esterase Urine Negative (Negative); Nitrite Urine Negative (Negative); PH 6.5 (5.0-9.0); Specific Gravity - Urine 1.015 (1.005-1.025); Urine Blood Negative (Negative); Urine Ketones Negative (Negative); Urine Protein Negative (Neg-Trace)
[2023-08-30 14:38] LABS: Amphetamine Screen Urine Not Detected (Not Detect); Barbiturates, Urine Not Detected (Not Detect); Benzodiazepines Screen Urine Not Detected (Not Detect); Cannabinoid Screen Urine Not Detected (Not Detect); Cocaine Screen Urine Not Detected (Not Detect); Fentanyl, urine Not Detected (Not Detect); Opiate Screen Urine Not Detected (Not Detect); Phencyclidine Screen Urine Not Detected (Not Detect)
--- NOTE | 2023-08-30 14:48 | ED.GENADULT ---
HPI - General Adult General Chief complaint: Psychiatric Symptoms Stated complaint: from [facility], does not feel safe, PTSD, AUT, adhd Time Seen by Provider: 08/30/23 13:24 Source: patient and EMS Mode of arrival: EMS Limitations: no limitations History of Present Illness HPI narrative: Patient is a 23 year old assigned female at with a history of PTSD, autism, and mood disorder presenting to the emergency department today with suicidal ideation and attention seeking. Patient states that she is feeling suicidal but does not have a plan. Patient states that she called 911 because she wasn't getting [facility]. Patient denies any dizziness, lightheadedness, abdominal pain, nausea, vomiting, fever, chills, blurry vision, double vision, loss of vision, chest pain, difficulty breathing, shortness of breath, back pain, night sweats, pain with urination, increased urinary frequency, increased urinary urgency, blood in her urine or stool, syncope or a near syncopal episode, recent trauma or falls, bowel incontinence, bladder incontinence, bowel retention, bladder retention, or any other complaints at this time. Relieving factors: none Exacerbating factors: none Associated symptoms: denies other symptoms Treatments prior to arrival: none Related Data Home Medications Medication Instructions Recorded Confirmed acetaminophen 500 mg tablet 1,000 mg PO Q6H PRN Pain, Fever 06/16/23 08/03/23 (Acetaminophen Extra Strength) albuterol sulfate 90 mcg/actuation 2 puff inhalation Q4-6H PRN 06/16/23 08/03/23 aerosol inhaler Wheezing cholecalciferol (vitamin D3) 125 125 mcg PO DAILY Obesity 06/16/23 08/03/23 mcg (5,000 unit) tablet (Vitamin D3) clonazepam 0.5 mg tablet (Klonopin) 0.5 mg PO DAILY PRN 06/16/23 08/03/23 Anxiety/Agitation clonazepam 1 mg tablet (Klonopin) 0.5 mg PO BID Anxiety 06/16/23 08/03/23 clozapine 150 mg disintegrating 300 mg PO BEDTIME Mood 06/16/23 08/03/23 tablet clozapine 25 mg disintegrating 25 mg PO DAILY@1500 Mood 06/16/23 08/03/23 tablet fluticasone propionate 50 1 spray intranasal BEDTIME 06/16/23 08/03/23 mcg/actuation nasal Allergies spray,suspension hydroxyzine HCl 25 mg tablet 25 mg PO BID PRN Anxiety/Agitation 06/16/23 08/03/23 lithium carbonate 600 mg capsule 600 mg PO BID Mood 06/16/23 08/03/23 metformin 500 mg tablet 500 mg PO DAILY Obesity 06/16/23 08/03/23 montelukast 10 mg tablet 10 mg PO BEDTIME Asthma 06/16/23 08/03/23 (Singulair) psyllium 1 packet PO DAILY Constipation 06/16/23 08/03/23 fluticasone propionate 100 1 inh inhalation BID 06/17/23 08/03/23 mcg/actuation blister powder for inhalation (Flovent Diskus) aluminum-mag hydroxide-simethicone 40 ml PO Q4-6H PRN Upset Stomach 06/28/23 08/03/23 200 mg-200 mg-20 mg/5 mL oral susp bisacodyl 5 mg tablet,delayed 10 mg PO BEDTIME PRN Constipation 06/28/23 08/03/23 release (Dulcolax (bisacodyl)) loperamide 1 mg/7.5 mL oral liquid 2 mg PO TID PRN Diarrhea 06/28/23 08/03/23 clonazepam 1 mg tablet 1 mg PO BEDTIME PRN Anxiety 08/03/23 08/03/23 clozapine 50 mg tablet 150 mg PO DAILY 08/03/23 08/03/23 cyanocobalamin (vitamin B-12) 1,000 mcg PO DAILY 08/03/23 08/03/23 1,000 mcg tablet dextromethorphan-guaifenesin 10 10 ml PO Q4H PRN Congestion 08/03/23 08/03/23 mg-100 mg/5 mL oral syrup famotidine 10 mg tablet 10 mg PO BID 08/03/23 08/03/23 fluvoxamine 25 mg tablet 25 mg PO BEDTIME 08/03/23 08/03/23 levothyroxine 50 mcg tablet 50 mcg PO DAILY@0600 08/03/23 08/03/23 metformin 850 mg tablet 850 mg PO BEDTIME 08/03/23 08/03/23 nitrofurantoin 1 cap PO BID 08/03/23 08/03/23 monohydrate/macrocrystals 100 mg capsule polyethylene glycol 3350 17 17 g PO DAILY 08/03/23 08/03/23 gram/dose oral powder quetiapine 50 mg tablet 50 mg PO BEDTIME 08/03/23 08/03/23 sennosides 8.6 mg tablet (senna) 17.2 mg PO DAILY 08/03/23 08/03/23 spironolactone 25 mg tablet 25 mg PO DAILY 08/03/23 08/03/23 Allergies Allergy/AdvReac Type Severity Reaction Status Date / Time ibuprofen Allergy Intermediate Hives Verified 05/08/23 20:43 lactose Allergy Gastrointestinal Verified 06/16/23 20:33 Upset Review of Systems Constitutional: Constitutional: Reports no additional constitutional complaints, Denies chills, Denies fever(s) and Denies night sweats Eyes: Eyes: Reports no additional eye complaints, Denies blurry vision, Denies change in vision, Denies diplopia, Denies eye discharge, Denies loss of vision and Denies eye pain ENT: Denies dizziness Cardiovascular: Cardiovascular: Reports no additional cardiovascular complaints, Denies chest pain, Denies lightheadedness, Denies Loss of Consciousness and Denies dyspnea Respiratory: Respiratory: Reports no additional respiratory complaints and Denies dyspnea Gastrointestinal: Gastrointestinal: Reports no additional gastrointestinal complaints, Denies abdominal pain, Denies melena, Denies hematochezia, Denies change in bowel habits and Denies change in stool character Genitourinary: Genitourinary: Denies hematuria, Denies urinary frequency, Denies dysuria, Denies urinary incontinence, Denies urinary hesitancy and Denies urinary urgency Musculoskeletal: Musculoskeletal: Reports no additional musculoskeletal complaints, Denies numbness and Denies tingling Neurologic: Denies dizziness, Denies loss of vision, Denies numbness and Denies tingling Psychiatric: Psychiatric: Denies homicidal ideation and Reports suicidal ideation Endocrine: Endocrine: Reports no additional endocrine complaints Hematologic/Lymphatic: Hematologic/Lymphatic: Reports no additional hematologic/lymphatic complaints Allergic/Immunologic: Allergic/Immunologic: Reports no additional allergic/immunologic complaints PMFSH Past Medical History Attestation statement: The following information was validated with the patient. Source: old records reviewed and nursing notes reviewed Medical History Mood disorder Autism PTSD (post-traumatic stress disorder) Depression Social History Social History Household Members: Other Household Members Other:: New residence, moved in Thursday Housing: House Housing Other:: 3 Do you presently have visiting nurse or other home services: No Patient Tobacco Use Status: Never used Tobacco Smoked in Last 30 Days: No Second Hand Smoke Exposure: No Use of substances other than those prescribed or required for medical reasons: No Advance Directives: No Patient : No service: No Sexual orientation: Don't Know Physical Exam ED Vital Signs: Vital Signs - 24 hr 08/30/23 13:28 08/30/23 13:31 Temperature 98.0 F Pulse Rate 101 H 98 Respiratory Rate 16 14 Blood Pressure 129/87 Pulse Oximetry 100 98 Oxygen Delivery Method Room Air Room Air BMI result Body Mass Index 31.0 Const General: cooperative, no acute distress, alert and awake Nutritional Appearance: well nourished Orientation/consciousness: patient oriented x3 Limitations: no limitations HENMT Head: Yes normal to inspection and Yes atraumatic Ears: hearing grossly normal bilaterally and external ears normal General nose exam: Normal external nose present, no nasal discharge noted and no epistaxis Face and sinus: Yes normal facial exam, No abrasion and No laceration Mouth: Normal oral and palatal mucosa present, no drooling and no muffled voice Eyes General: appearance normal, both eyes and all related structures Periorbital: periorbital findings normal Eyelids: Yes eyelids normal Conjunctivae: conjunctivae normal Pupils: Equal, round and reactive pupils present EOM: EOMs intact bilaterally Neck Neck: Yes normal visual inspection, Yes full ROM and Yes no lymphadenopathy Chest Chest palpation & inspection: normal inspection of the chest Resp Effort & Inspection: normal respiratory effort and able to speak in complete sentences GI Inspection: Yes normal to inspection Neuro General: patient oriented x3 and moves all extremities Cranial nerves: Yes Equal, round and reactive pupils present Cognition (Neuro): normal cognition Motor exam (neuro): 5/5 motor strength present throughout Sensory Exam: Normal double simultaneous stimulation for sensation Coordination: [id number] test normal Extrem General: Yes normal to inspection, Yes full ROM and Yes capillary refill normal Psych Appearance: grossly normal Mental Status: mental status grossly normal Affect: normal affect Attitude: cooperative Thought process: Normal thought process present Thought content: Normal thought content present Insight: Good insight present (Psych) Medical Decision Making Medical Decision Making MDM Narrative: Patient is a 23 year old assigned female at with a history of PTSD, autism, and mood disorder presenting to the emergency department today with suicidal ideation. Patient's physical exam was unremarkable. Patient's blood work showed a chronically elevated WBC count but were otherwise unremarkable. Patient's urine showed no acute process. I explained my physical exam findings as well as all test results to the patient. I answered all questions asked by the patient. Patient currently awaiting CARE evaluation. Differential Diagnosis Differential Diagnoses: The differential diagnosis associated with the presentation includes Suicidal ideation Attention seeking behavior Admission/Observation Consideration of admission/observation: Escalation of care including admission/observation considered Patient's disposition will be determined after CARE team evaluation. Lab Data [facility] Lab Attestation statement: I reviewed the patient's lab results. My interpretation of these results are in the [facility] Rationale portion of this note. 08/30/23 13:39 08/30/23 13:39 Labs: Lab Results 08/30/23 08/30/23 Range/Units 13:39 14:25 WBC 16.8 H (4.8-10.8) X10*3/uL RBC 4.53 (4.20-5.50) X10*6/uL Hgb 13.5 (12.0-16.0) g/dl Hct 42.1 (37.0-47.0) % MCV 92.9 (80.0-98.0) fL MCH 29.8 (27.0-33.0) pg MCHC 32.1 (31.0-35.0) g/dl RDW 13.5 (11.0-16.0) % Plt Count 259 (160-400) X10*3/uL MPV 11.9 (9.4-12.3) fL Immature Gran % (Auto) 0.3 (0.0-0.4) % Neut % (Auto) 79.2 H (45-73) % Lymph % (Auto) 12.4 L (20-40) % [place] % (Auto) 5.2 (2-11) % Eos % (Auto) 2.6 (0-4) % Baso % (Auto) 0.3 (0-2) % Lymph # (Auto) 2.1 (1.2-4.9) X10*3/uL [place] # (Auto) 0.9 (0.1-1.2) X10*3/uL Eos # (Auto) 0.4 (0.0-0.4) X10*3/uL Baso # (Auto) 0.1 (0.0-0.2) X10*3/uL Abs Immat Gran (auto) 0.05 H (0.00-0.03) X10*3/uL Absolute Neuts (auto) 13.3 H (2.0-8.3) x10*3/uL Absolute Nucleated RBC 0.000 (0.0-0.012) X10*3/uL Nucleated RBC % (auto) 0.0 (0.0-0.2) /100WBC Sodium 140 (135-145) mmol/L Potassium 4.1 (3.3-5.1) mmol/L Chloride 108 (96-108) mmol/L Carbon Dioxide 23 (22-29) mmol/L Anion Gap 13 (12-20) BUN 8 L (9-16) mg/dL Creatinine 0.83 (0.5-1.4) mg/dL Estim Creat Clear Calc 106.0 Estimated GFR > 60 Random Glucose 103 (60-115) mg/dL Calcium 10.9 H (8.4-10.2) mg/dL Total Bilirubin 0.4 (0.0-1.0) mg/dL AST 30 (5-31) U/L ALT 29 (0-31) U/L Alkaline Phosphatase 101 (39-117) U/L Total Protein 7.2 (6.5-8.0) g/dL Albumin 4.3 (3.5-5.0) g/dL Urine Color Yellow Urine Appearance Clear Urine pH 6.5 (5.0-9.0) Ur Specific [place] 1.015 (1.005-1.025) Urine Protein Negative (Neg-Trace) mg/dL Urine Glucose (UA) Negative (Negative) mg/dL Urine Ketones Negative (Negative) mg/dL Urine Blood Negative (Negative) Urine Nitrite Negative (Negative) Ur Leukocyte Esterase Negative (Negative) Salicylates < 5.0 L (15-30) mg/dL Urine Opiates Screen Not Detected (Not Detect) Urine Fentanyl Screen Not Detected (Not Detect) Acetaminophen < 3 (<30) mcg/mL Ur Barbiturates Screen Not Detected (Not Detect) Ur Phencyclidine Scrn Not Detected (Not Detect) Ur Amphetamines Screen Not Detected (Not Detect) U Benzodiazepines Scrn Not Detected (Not Detect) Urine Cocaine Screen Not Detected (Not Detect) U Marijuana (THC) Screen Not Detected (Not Detect) Ethyl Alcohol < 10 mg/dL COVID-19 (MARIA L) Negative (Negative) COVID-19 Clin Com See Note Independent Historian Clinical information obtained from an independent historian. History obtained from or confirmed by: EMS (EMS provided additional history and confirmed the history provided by the patient.) Discharge Plan Discharge Clinical Impression: Suicidal ideation Patient Disposition: Still a Patient Prescriptions: No Action metformin 500 mg Tablet 500 mg PO DAILY clonazepam [Klonopin] 0.5 mg Tablet 0.5 mg PO DAILY PRN (Reason: Anxiety/Agitation) Metamucil Packet 1 packet PO DAILY clonazepam [Klonopin] 1 mg Tablet 0.5 mg PO BID Rx Instructions: Daily at 1500 acetaminophen [Acetaminophen Extra Strength] 500 mg Tablet 1,000 mg PO Q6H PRN (Reason: Pain, Fever) lithium carbonate 600 mg Capsule 600 mg PO BID montelukast [Singulair] 10 mg Tablet 10 mg PO BEDTIME hydroxyzine HCl 25 mg Tablet 25 mg PO BID PRN (Reason: Anxiety/Agitation) fluticasone propionate [Flonase] 50 mcg/actuation [place],Suspension 1 spray INTRANASAL BEDTIME clozapine 25 mg Tablet,Disintegrating 25 mg PO DAILY@1500 Rx Instructions: Daily at 1500 cholecalciferol (vitamin D3) [Vitamin D3] 125 mcg (5,000 unit) Tablet 125 mcg PO DAILY clozapine 150 mg Tablet,Disintegrating 300 mg PO BEDTIME albuterol sulfate 90 mcg/actuation Hfa Aerosol Inhaler 2 puff INHALATION Q4-6H PRN (Reason: Wheezing) fluticasone propionate [Flovent Diskus] 100 mcg/actuation Blister With Device 1 inh INHALATION BID bisacodyl [Dulcolax (bisacodyl)] 5 mg Tablet,Delayed Release (Dr/Ec) 10 mg PO BEDTIME PRN (Reason: Constipation) alum-mag hydroxide-simeth [Mylanta] 200-200-20 mg/5 mL Suspension 40 ml PO Q4-6H PRN (Reason: Upset Stomach) loperamide 1 mg/7.5 mL Liquid 2 mg PO TID PRN (Reason: Diarrhea) Rx Instructions: administer after each loose stool until symptoms controlled; do not exceed 16 mg per 24 hrs clonazepam 1 mg tablet 1 mg PO BEDTIME PRN (Reason: Anxiety) fluvoxamine 25 mg tablet 25 mg PO BEDTIME quetiapine 50 mg tablet 50 mg PO BEDTIME sennosides [senna] 8.6 mg tablet 17.2 mg PO DAILY famotidine 10 mg tablet 10 mg PO BID metformin 850 mg tablet 850 mg PO BEDTIME cyanocobalamin (vitamin B-12) 1,000 mcg tablet 1,000 mcg PO DAILY spironolactone 25 mg tablet 25 mg PO DAILY levothyroxine 50 mcg tablet 50 mcg PO DAILY@0600 polyethylene glycol 3350 17 gram/dose powder 17 g PO DAILY clozapine 50 mg Tablet 150 mg PO DAILY dextromethorphan-guaifenesin [Robitussin-DM] 10-100 mg/5 mL Syrup 10 ml PO Q4H PRN (Reason: Congestion) nitrofurantoin monohyd/m-cryst 100 mg capsule 1 cap PO BID Rx Instructions: take for 5 days ending on Interventions: [place]-Suicide Risk Severity Scale Last Done: 08/30/23 13:30
--- NOTE | 2023-08-30 16:01 | PC.NURSE ---
Addendum entered by Bonnie Awad 08/30/23 17:34: Medications reviewed with [facility] staff, confirmed when last dose off all medications were and updated med rec accordingly Original Note: Med rec completed by this RN by verifying medications with patient and medical record
[2023-08-30] MEDS: polyethylene glycoL 3350 17 GM POWD.PACK PO (17:42)
[2023-08-30] MEDS: cloZAPine 25 MG TABLET PO (17:42)
[2023-08-30] MEDS: metFORMIN HCl 500 MG TABLET PO (17:42)
--- NOTE | 2023-08-30 18:06 | PC.NURSE ---
pt coloring with other pod patient
--- NOTE | 2023-08-30 18:56 | PC.NURSE ---
At approximately 1640, patient approached this RN stating Cori, I did a bad thing, I swallowed a piece of plastic . This RN attempted to verify what type of plastic it was. Pt stated It was a piece of plastic I found on the bathroom floor . Pt stated it was about the size of a tracey. Patient denies sore throat, GI upset, or other issues related to swallowing plastic. Dr. Daley aware, no new orders at this time. patient placed on 1:1 for safety. Airway patent, SpO2 98%, no visible bleeding in mouth or throat Report given to RODY Lennon
--- NOTE | 2023-08-30 19:17 | PC.NURSE ---
patient appears to be awake, prior shifts behavior wherein client claimed to swallow plastic item, patient appears seated in room maintained on constant observation presently.
[2023-08-30] MEDS: cloZAPine 100 MG TABLET 300 MG PO (20:17)
[2023-08-30] MEDS: fluvoxaMINE Maleate 50 MG TABLET 25 MG PO (20:18)
[2023-08-30] MEDS: Sennosides 8.6 MG TABLET 17.2 MG PO (20:19)
[2023-08-30] MEDS: Montelukast Sodium 10 MG TABLET PO (20:19)
[2023-08-30] MEDS: Famotidine 20 MG TABLET 10 MG PO (20:20)
[2023-08-30] MEDS: QUEtiapine Fumarate 50 MG TABLET PO (20:20)
[2023-08-30] MEDS: Lithium Carbonate 300 MG CAPSULE 600 MG PO (20:21)
[2023-08-30 20:25] VITALS: BP 128/85; PULSE 106; RESP 16; TEMP 37.1; O2SAT 100
[2023-08-31 06:49] VITALS: RESP 20
[2023-08-31] MEDS: Levothyroxine Sodium 50 MCG TABLET PO (06:52)
[2023-08-31] MEDS: Lactase TABLET 1 TAB PO (07:22)
[2023-08-31 07:43] VITALS: BP 100/66; PULSE 97; RESP 16; TEMP 36.6; O2SAT 95
[2023-08-31 08:45] VITALS: BP 120/50; PULSE 96; TEMP 36.8; O2SAT 95
[2023-08-31] MEDS: Spironolactone 25 MG TABLET PO (08:58)
[2023-08-31] MEDS: Cyanocobalamin (Vitamin B-12) 1,000 MCG TABLET 1000 MCG PO (08:58)
[2023-08-31] MEDS: Docusate Sodium 100 MG CAPSULE PO (08:58)
[2023-08-31] MEDS: Famotidine 20 MG TABLET 10 MG PO (08:58)
[2023-08-31] MEDS: Cholecalciferol (Vitamin D3) 25 MCG TABLET 125 MCG PO (08:58)
[2023-08-31] MEDS: polyethylene glycoL 3350 17 GM POWD.PACK PO (08:59)
[2023-08-31] MEDS: metFORMIN HCl 500 MG TABLET PO (08:59)
[2023-08-31] MEDS: Lithium Carbonate 300 MG CAPSULE 600 MG PO (08:59)
[2023-08-31 09:43] VITALS: BP 120/50; PULSE 96; RESP 18; TEMP 36.8; O2SAT 95
== END 2023-08-31 09:49 | disposition home or self-care (01) ==
PROVIDERS: Emergency Provider Emergency Medicine
DX: R45.851 Suicidal ideations (principal); F43.10 Post-traumatic stress disorder, unspecified; F32.A Depression, unspecified; F84.0 Autistic disorder; Z11.52 Encounter for screening for COVID-19
CPT/HCPCS: 36415; 80053; 80143; 80179; 80307; 81003; 85025; 87635; 99285

== ENCOUNTER 2024-12-02 15:15 | Emergency (ER) | payer OTHER, SELFPAY ==
--- NOTE | ~2024-12-02 | CT_ITS ---
CLINICAL HISTORY: headstrike CT head without contrast Comparison: None provided Findings: No intra-axial mass, midline shift, hydrocephalus, or acute hemorrhage. No significant atrophy-like change or white matter disease. There is no sinus or mastoid fluid. The orbits are within normal limits. There is no acute fracture. IMPRESSION: 1. No acute intracranial findings. This document has been electronically signed by: Angela Suggs MD on 12/02/2024 19:07:14
[2024-12-02 15:33] VITALS: BP 125/64; BP 139/88; PULSE 110; PULSE 116; RESP 18; O2SAT 97; BMI 37.8
--- OUTSIDE RECORDS SUMMARY | 2024-12-02 16:00 | XMS_ITS | Encounter Summary ---
Author Organization [facility] Address [address] [place] [address] Care Team Providers Care Assistant Professor Of Surgery Name Role Phone Kita Smith MD Primary Care Provider [phone] Encounter Details Date Type Department Care Team (Late st Contact Info) Description 05/12/2024 Lab Requisition [facility] [address] [facility] [place] [address] Quin Mullen, ORALIA [address] [place] [address] Other termite exterminator (current) drug therapy Social History Tobacco Use Types Packs/Day Years Used Date Smoking Tobacco: Never Smokeless Tobacco: Never Alcohol Use Standard Drinks/Week Comments Not Currently 0 (1 standard drink = 0.6 oz pur e alcohol) Comments Unknown Sex and Gender Information Value Date Recorded Sex Assigned at Female 05/18/2024 7:10 PM EST Legal Sex Female 8:46 PM EST Gender Identity Female 05/18/2024 7:10 PM EST Sexual Orientation Straight 05/18/2024 7: 10 PM EST documented as of this encounter Functional Status * Are you deaf or do you have serious difficulty hearing? Answer Date of Assessment Author Yes 05/10/2024 11:23 PM EST Sarah Rogers RN * Are you blind or do you have serious difficulty seeing, even when wearing glasses? Answer Date of Assessment Author No 05/10/2024 11:23 PM Sarah Nino RN * Do you have serious difficulty walking or climbing stairs? Answer Date of Assessment Author No 05/10/2024 11:23 PM EST Ubaldo z, Sarah N, RN * Do you have serious difficulty dressing or bathing? Answer Date of Assessment Author No 05/10/2024 11:23 PM Sarah Nino RN * Because of a physical, mental, or emotional condition, do you have serious difficulty doing errandsalone such as visiting the doctor? Answer Date of Assessment Author No 05/10/2024 11:23 PM Sarah Nino RN documented as of this encounter Mental Status * Because of a physical, mental, or emotional condition, do you have serious difficulty concentrating, remembering, or making decisions? (5 years old or older) Answer Entry Date Author Yes 05/10/2024 11:23 PM Sarah Nino RN documented in this encounter Plan of Treatment Upcoming Encounters Date Type Department Care Team ([facility] st Contact Info) Description 12/26/2024 9:45 AM EDT Consult General Surgery - [place] [address] [address] Jonny Dinero MD [address] [address] documented as of this encounter Procedures Procedure Name Priority Date/Time Associated Diagnosis Comments LIPID PANEL WITH REFLEX TO DIRECT LDL Routine 05/12/2024 7:00 AM EST Other termite exterminator (current) drug therapy CBC WITH AUTO DIFFERENTIAL Routine 05/12/2024 7:00 AM EST Other halfway (current) drug therapy CBC AND DIFFERENTIAL Routine 05/12/2024 7:00 AM EST Other termite exterminator (current) drug therapy HEMOGLOBIN A1C Routine 05/12/2024 7:00 AM EST Other termite exterminator (current) drug therapy LITHIUM LEVEL Routine 05/12/2024 7:00 AM EST Other termite exterminator (current) drug therapy documented in this encounter Results * (ABNORMAL) CBC auto differential (05/12/2024 7:00 AM EST) WBC 12.3(H) 4.8 - 10.8 K/mcL LAB HEMETOLOGY METHOD 05/12/2024 11:[address] [facility] RBC 4.80 3.80 - 4.80 M/mcL LAB HEMETOLOGY METHOD 05/12/2024 11:[address] [facility] Hemoglobin 14.2 11.5 - 16.0 g/dL LAB HEMETOLOGY METHOD 05/12/2024 11:[address] [facility] Hematocrit 44.6 35.0 - 47.0 % LAB HEMETOLOGY METHOD 05/12/2024 11:[address] [facility] MCV 93.7 79.0 - 98.0 FL LAB HEMETOLOGY METHOD 05/12/2024 11:[address] [facility] MCH 29.8 27.0 - 32.0 pcg LAB HEMETOLOGY METHOD 05/12/2024 11:[address] [facility] MCHC 31.8(L) 32.0 - 37.0 g/dL LAB HEMETOLOGY METHOD 05/12/2024 11:[address] [facility] RDW 13.2 11.0 - 15.0 % LAB HEMETOLOGY METHOD 05/12/2024 11:[address] [facility] Platelets 283 130 - 400 K/mcL LAB HEMETOLOGY METHOD 05/12/2024 11:[address] [facility] MPV 12.5(H) 7.0 - 11.0 FL LAB HEMETOLOGY METHOD 05/12/2024 11:[address] [facility] NRBC 0.0 <1.0 % LAB HEMETOLOGY METHOD 05/12/2024 11:[address] [facility] NRBC Absolute 0.00 <0.10 K/mcL LAB HEMETOLOGY METHOD 05/12/2024 11:[address] [facility] Neutrophils Relative 63.4 % LAB HEMETOLOGY METHOD 05/12/2024 11:[address] [facility] Lymphocytes Relative 25.8 % LAB HEMETOLOGY METHOD 05/12/2024 11:[address] [facility] Monocytes Relative 6.8 % LAB HEMETOLOGY METHOD 05/12/2024 11:[address] [facility] Eosinophils Relative 3.3 % LAB HEMETOLOGY METHOD 05/12/2024 11:[address] [facility] Basophils Relative 0.3 % LAB HEMETOLOGY METHOD 05/12/2024 11:[address] [facility] Immature Granulocytes Relative 0.4 % LAB HEMETOLOGY METHOD 05/12/2024 11:[address] [facility] Neutrophils Absolute 7.81(H) 1.50 - 7.00 K/mcL LAB HEMETOLOGY METHOD 05/12/2024 11:[address] [facility] Lymphocytes Absolute 3.18 1.00 - 5.00 K/mcL LAB HEMETOLOGY METHOD 05/12/2024 11:[address] [facility] Monocytes Absolute 0.84 0.20 - 1.00 K/mcL LAB HEMETOLOGY METHOD 05/12/2024 11:[address] [facility] Eosinophils Absolute 0.41 0.00 - 0.50 K/mcL LAB HEMETOLOGY METHOD 05/12/2024 11:[address] [facility] Basophils Absolute 0.04 0.00 - 0.20 K/mcL LAB HEMETOLOGY METHOD 05/12/2024 11:[address] [facility] Immature Granulocytes Absolute 0.05(H) 0.00 - 0.03 K/mcL LAB HEMETOLOGY METHOD 05/12/2024 11:[address] [facility] Blood Venous blood specimen / Unknown Venipuncture / Unknown 05/12/2024 7:00 AM EST 05/12/2024 10:46 AM EST us Quin Benjaminocharline Abimaje [employer] LAB BLOOD ORDERABLES Fi nal Result [facility] [address] [place] [address], [place] [phone] * Hemoglobin A1c (05/12/2024 7:00 AM EST) Hemoglobin A1C 4.8 <6.5 % LAB CHEMISTRY METHOD 05/12/2024 11:41 AM EST [facility] Mean Bld Glu Estim. 91 mg/dL LAB CHEMISTRY METHOD 05/12/2024 11:41 AM EST [facility] Blood Venous blood specimen / Unknown Venipuncture / Unknown 05/12/2024 7:00 AM EST 05/12/2024 10:46 AM EST us Quin Byrne Abimaje [employer] LAB BLOOD ORDERABLES Fi nal Result Performing Organization Address City/[facility]/ZIP Co de Phone Number [facility] [address] [place] [address], [place] [phone] * [place] level (05/12/2024 7:00 AM EST) [place] Level 1.0 0.6 - 1.2 mEq/L LAB CHEMISTRY METHOD 05/12/2024 11:48 AM EST [facility] Blood Venous blood specimen / Unknown Venipuncture / Unknown 05/12/2024 7:00 AM EST 05/12/2024 10:46 AM EST us Quin Eleocharline Abimaje [employer] LAB BLOOD ORDERABLES Fi nal Result Performing Organization Address City/[facility]/ZIP Co de Phone Number [facility] [address] [place] [address], [place] [phone] * Lipid panel with reflex to direct LDL (05/12/2024 7:00 AM EST) Cholesterol 146 0 - 200 mg/dL LAB CHEMISTRY METHOD 05/12/2024 11:42 AM EST [facility] Triglycerides 122 0 - 150 mg/dL LAB CHEMISTRY METHOD 05/12/2024 11:[address] [facility] HDL 59 >=40 mg/dL LAB CHEMISTRY METHOD 05/12/2024 11:42 AM EST [facility] LDL Calculated 63 0 - 100 mg/dL LAB CHEMISTRY METHOD 05/12/2024 11:42 AM EST [facility] VLDL Cholesterol Fox 24.4 mg/dL LAB CHEMISTRY METHOD 05/12/2024 11:[address] [facility] Non HDL Chol. (LDL+VLDL) 87 <145 mg/dL LAB CHEMISTRY METHOD 05/12/2024 11:[address] [facility] Chol/HDL Ratio 2.5 0.0 - 4.4 LAB CHEMISTRY METHOD 05/12/2024 11:42 AM EST [facility] Blood Venous blood specimen / Unknown Venipuncture / Unknown 05/12/2024 7:00 AM EST 05/12/2024 10:46 AM EST us Quin Mullen [employer] LAB BLOOD ORDERABLES Fi nal Result [facility] [address] [place] [address], documented in this encounter Visit Diagnoses Diagnosis Other halfway (current) drug therapy documented in this encounter Care Teams Assistant Professor Of Surgery Relationship Specialty Start Date End Date Kita Smith MD [address] [address] PCP - General 10/15/23 documented as of this encounter
--- NOTE | 2024-12-02 16:20 | ED_ITS ---
HPI - General Adult General Chief complaint: Headache Stated complaint: facility requesting ct, pt banging head all day Time Seen by Provider: 12/02/24 16:20 Source: patient Mode of arrival: EMS Limitations: no limitations History of Present Illness ED Provider: Michael Stein PA-C HPI narrative: 24-year-old female with medical history of autism, PTSD, depression, mood disorder presents to the ED by EMS from [place] due to head strike. Patient states she hit her head against the wall several times both Thursday and Thursday. She was evaluated by an MD today at her [facility] living who stated her pupils were nonreactive. Patient states she has a headache and took Tylenol this morning without relief. Denies chest pain, shortness of breath, visual changes, nausea, vomiting. Denies SI/HI MD complaint: headstrike Related Data Home Medications ?Medication ?Instructions ?Recorded ?Confirmed albuterol sulfate 90 mcg/actuation 2 puff inhalation Q 6H PRN Wheezing 06/16/23 12/02/24 aerosol inhaler montelukast 10 mg tablet 10 mg PO DAILY Asthma 12/02/24 (Singulair) levothyroxine 50 mcg tablet 50 mcg PO DAILY@0600 08/0312/02/24 spironolactone 25 mg tablet 25 mg PO DAILY 08/03/23 lactase 3,000 unit tablet 3,000 unit PO TIDWMEAL 08/2912/02/24 (Dairy-Aid) acetaminophen 325 mg tablet 650 mg PO Q6H PRN Pain (Sc maria luz 12/02/24 12/02/24 Score 1-3) aluminum-mag hydroxide-simethicone 30 ml PO Q6H PRN Dy spepsia 12/02/24 12/02/24 200 mg-200 mg-20 mg/5 mL oral susp (Antacid) carbamide peroxide 6.5 % ear drops 5 drp otic (ear) le ft BID 12/02/24 12/02/24 (Debrox) clonazepam 1 mg tablet 1 mg PO DAILY 12/02/2412/02 clozapine 200 mg tablet 200 mg PO BEDTIME 12/02/24 0 12/02/24 clozapine 25 mg tablet 25 mg PO BEDTIME 12/02/24 fluticasone furoate 100 1 ea inhalation DAILY 12/02/24 mcg-vilanterol 25 mcg/dose inhalation powder (Breo Ellipta) lidocaine 4 % topical patch 1 patch topical DAILY 11/0712/02/24 lithium carbonate 300 mg capsule 600 mg PO BID 5 12/02/24 magnesium hydroxide 400 mg/5 mL 5 ml PO DAILY PRN Cons tipation 12/02/24 12/02/24 oral suspension (Milk of Magnesia) mineral oil-hydrophil petrolat 1 appl topical TID PRN Dry Skin 12/02/24 12/02/24 topical ointment multivitamin 1 tab PO DAILY 12/02/2411/07 ondansetron 4 mg disintegrating 4 mg PO Q6H PRN Nausea And Vomiting 12/02/24 12/02/24 tablet sennosides 8.6 mg-docusate sodium 1 tab-cap PO BEDTIME 12/02/24 12/02/24 50 mg tablet (Senna with Docusate Sodium) Allergies Allergy/AdvReac Type Severity Reaction Status Date / Time ibuprofen Allergy Intermediate Hives Verified 12/02/24 15:36 lactose Allergy Gastrointestinal Verified 12/02/24 15:36 Upset Review of Systems 2 Review of Systems: CONST: Negative for fever, body aches and chills. HENT: Negative for neck pain/stiffness, headache, congestion, sore throat, swelling. POS headache EYES: Negative for discharge/pain or vision changes. RESP: Negative for cough/hemoptysis and shortness of breath. CV: Negative chest pain, difficulty breathing, palpitations. ABD: Negative pain, nausea, vomiting. : Negative increase frequency, dysuria, blood in urine or stool. MUSC: Negative for muscle aches, edema. SKIN: Negative rash, lesions/sores. NEURO: Negative dizziness, weakness. [facility] Past Medical History Medical History Mood disorder Autism PTSD (post-traumatic stress disorder) Depression Social History Social History Household Members: Other Household Members Other:: New residence, moved in Thursday Housing: House Housing Other:: 3 Do you presently have visiting nurse or other home services: No Unable to assess alcohol history related to: Unknown Patient Tobacco Use Status: Never used Tobacco Smoked in Last 30 Days: No Second Hand Smoke Exposure: No Use of substances other than those prescribed or required for medical reasons: Unknown Advance Directives: No Advance Directives Information Provided: Yes Do you have a plan to hurt others: No Plan service: No Sexual orientation: Don't Know Physical Exam ED Vital Signs: Vital Signs - 24 hr 12/02/24 15:33 12/02/24 16:42 12/02/24 18:00 Temperature 97.8 F 98.1 F Pulse Rate 116 H 107 H 110 H Respiratory Rate 18 16 16 Blood Pressure 125/64 113/85 110/73 Pulse Oximetry 97 97 Oxygen Delivery Method Room Air Room Air Room Air 12/02/24 19:56 12/02/24 20:00 Temperature 98.5 F 98.3 F Pulse Rate 112 H 110 H Respiratory Rate 20 16 Blood Pressure 121/94 H 129/86 Pulse Oximetry 97 98 Oxygen Delivery Method Room Air Room Air BMI result Body Mass Index 37.8 GENERAL APPEARANCE: ?AxOx4, generally well-appearing, no acute distress. HEENT: ?NC, AT. MMM. EOMI, clear conjunctiva, oropharynx clear. 1.5 by 1 cm hematoma over the midline forehead, with very small scabbed abrasion, no active bleeding, no purulent drainage, no erythema NECK: ?Supple without lymphadenopathy.? No stiffness or restricted ROM. HEART:? Normal rate and regular rhythm, normal S1/S1, no m/r/g LUNGS:? CTAB, moving air well. No crackles or wheezes are heard. ABDOMEN: ?Soft, nontender, nondistended with good bowel sounds heard. BACK: No CVAT, no obvious deformity. EXTREMITIES: ?Without cyanosis, clubbing or edema. NEUROLOGICAL: ?Grossly nonfocal. Alert and oriented, moving all 4 extremities. Observed to ambulate with normal gait. Skin: ?Warm and dry without any rash. Medications Administered Generic Name Dose Route Start Last Admin Trade Name Freq PRN Reason Stop Dose Admin Clozapine 200 mg 12/02/24 21:00 12/02/24 20:40 Clozapine 100 Mg Tablet PO 200 mg BEDTIME JARETT Administration Medical Decision Making Medical Decision Making MDM Narrative: 24-year-old female with medical history of autism, PTSD, depression, mood disorder presents to the ED by EMS from [place] due to head strike. Patient states she hit her head against the wall several times both Thursday and Thursday. She was evaluated by an MD today at her senior living who stated her pupils were nonreactive. Patient states she has a frontal headache and took Tylenol this morning without relief. Denies SI/HI VSS, in no acute distress, nontoxic appearing. GCS of 15. Pupils reactive to accommodation and consensual light reflex. There is an approximately 1.5 cm by 1 cm hematoma of the midline forehead, with very small scab abrasion, no active bleeding, no purulent drainage, no erythema. [facility] requested CT head brain to rule out bleed due to MD fighting nonreactive pupils. We will also order labs. Awaiting results of CT. Patient labs unremarkable. CT scan did not reveal any intracranial abnormalities or fractures. Patient states she feels comfortable to return back to [place]. Differential Diagnosis Differential Diagnoses: The differential diagnosis associated with the presentation includes ICH Skull fracture Hematoma Admission/Observation Consideration of admission/observation: Escalation of care including admission/observation considered Lab Data MDM Lab Attestation statement: I reviewed the patient's lab results. 12/02/24 16:50 12/02/24 16:50 Labs: Lab Results 12/02/24 Range/Units 16:50 WBC 16.6 H (4.8-10.8) X10*3/uL RBC 4.54 (4.20-5.50) X10*6/uL Hgb 13.5 (12.0-16.0) g/dl Hct 41.0 (37.0-47.0) % MCV 90.3 (80.0-98.0) fL MCH 29.7 (27.0-33.0) pg MCHC 32.9 (31.0-35.0) g/dl RDW 13.6 (11.0-16.0) % Plt Count 273 (160-400) X10*3/uL MPV 11.5 (9.4-12.3) fL Immature Gran % (Auto) 0.5 H (0.0-0.4) % Neut % (Auto) 76.4 H (45-73) % Lymph % (Auto) 14.6 L (20-40) % Rogers % (Auto) 6.9 (2-11) % Eos % (Auto) 1.4 (0-4) % Baso % (Auto) 0.2 (0-2) % Lymph # (Auto) 2.4 (1.2-4.9) X10*3/uL Rogers # (Auto) 1.1 (0.1-1.2) X10*3/uL Eos # (Auto) 0.2 (0.0-0.4) X10*3/uL Baso # (Auto) 0.0 (0.0-0.2) X10*3/uL Abs Immat Gran (auto) 0.08 H (0.00-0.03) X10*3/uL Absolute Neuts (auto) 12.7 H (2.0-8.3) x10*3/uL Absolute Nucleated RBC 0.000 (0.0-0.012) X10*3/uL Nucleated RBC % (auto) 0.0 (0.0-0.2) /100WBC Sodium 142 (135-145) mmol/L Potassium 4.0 (3.3-5.1) mmol/L Chloride 109 H (96-108) mmol/L Carbon Dioxide 25 (22-29) mmol/L Anion Gap 12 (12-20) BUN 8 L (9-16) mg/dL Creatinine 0.91 (0.5-1.4) mg/dL Estim Creat Clear Calc 110.3 Estimated GFR > 60 Random Glucose 113 (60-115) mg/dL Calcium 10.0 D (8.4-10.2) mg/dL Total Bilirubin 0.5 (0.0-1.0) mg/dL AST 26 (5-31) U/L ALT 23 (0-31) U/L Alkaline Phosphatase 96 (39-117) U/L Total Protein 7.5 (6.5-8.0) g/dL Albumin 4.6 (3.5-5.0) g/dL Independent Interpretation I performed an independent interpretation of an: CT Scan Radiology Impression Discussion of test interpretation with radiology: I have reviewed the radiologist's reading. Radiologist Impression: Findings: No intra-axial mass, midline shift, hydrocephalus, or acute hemorrhage. No significant atrophy-like change or white matter disease. There is no sinus or mastoid fluid. The orbits are within normal limits. There is no acute fracture. IMPRESSION: 1. No acute intracranial findings. This document has been electronically signed by: Angela Suggs MD on 12/02/2024 19:07:14 Dictated By: Angela Suggs MD Signed By: <Electronically signed by Angela Suggs MD in OV> 12/02/24 1907 External Record Review External record reviewed: Inpatient record, Office record and Outpatient record Chronic Conditions Patient?s care impacted by: Other (Autism, PTSD) Discharge Plan Discharge Clinical Impression: Hematoma Patient Disposition: Xfer Psychiatric Hosp Additional Instructions: You were evaluated in the emergency department today after hitting your head on the wall. Your lab work was normal. The CT scan of your head and brain did not show any bleed or skull fracture. You have a small hematoma which was a collection of blood under the skin of the mid forehead. You can ice this area if it is causing you pain. You can manage your pain by taking Tylenol and Motrin every 6 hours as needed. Please return to the emergency department if you experience worsening headache, worsening forehead pain, nausea, vomiting, fevers over 100.4, chest pain, shortness of breath or any other new/worsening/concerning symptoms Prescriptions: No Action montelukast [Singulair] 10 mg Tablet 10 mg PO DAILY albuterol sulfate 90 mcg/actuation Hfa Aerosol Inhaler 2 puff INHALATION Q6H PRN (Reason: Wheezing) spironolactone 25 mg tablet 25 mg PO DAILY levothyroxine 50 mcg tablet 50 mcg PO DAILY@0600 lactase [Dairy-Aid] 3,000 unit tablet 3,000 unit PO TIDWMEAL lidocaine 4 % Adhesive Patch,Medicated 1 patch TOPICAL DAILY clonazepam 1 mg tablet 1 mg PO DAILY Debrox 6.5 % Drops 5 drp OTIC (EAR) LEFT BID Rx Instructions: STOP ON 12/07/24 clozapine 200 mg Tablet 200 mg PO BEDTIME fluticasone furoate-vilanterol [Breo Ellipta] 100-25 mcg/dose blister with device 1 ea inhalation DAILY multivitamin Tablet 1 tab PO DAILY sennosides-docusate sodium [Senna with Docusate Sodium] 8.6-50 mg Tablet 1 tab-cap PO BEDTIME Aquaphor Ointment 1 appl TOPICAL TID PRN (Reason: Dry Skin) magnesium hydroxide [Milk of Magnesia] 400 mg/5 mL Suspension 5 ml PO DAILY PRN (Reason: Constipation) alum-mag hydroxide-simeth [Antacid] 200-200-20 mg/5 mL Suspension 30 ml PO Q6H PRN (Reason: Dyspepsia) ondansetron 4 mg Tablet,Disintegrating 4 mg PO Q6H PRN (Reason: Nausea And Vomiting) acetaminophen 325 mg Tablet 650 mg PO Q6H PRN (Reason: Pain (Scale Score 1-3)) lithium carbonate 300 mg Capsule 600 mg PO BID clozapine 25 mg Tablet 25 mg PO BEDTIME Print Language: Argentine
[2024-12-02 16:42] VITALS: BP 113/85; PULSE 107; RESP 16; TEMP 36.6; O2SAT 97
[2024-12-02 16:55] LABS: MANUAL DIFF FLAG NO
[2024-12-02 16:57] LABS: Basophils Percent Auto 0.2 % (0-2); Eosinophils Absolute Auto 0.2 X10*3/uL (0.0-0.4); Eosinophils Percent Auto 1.4 % (0-4); Hemoglobin 13.5 g/dl (12.0-16.0); Imm Gran Abs Auto 0.08 X10*3/uL (0.00-0.03); Imm Gran Pct Auto 0.5 % (0.0-0.4); Lymphocytes Absolute Auto 2.4 X10*3/uL (1.2-4.9); Lymphocytes Percent Auto 14.6 % (20-40); Mean Corpuscular HGB Conc 32.9 g/dl (31.0-35.0); Mean Corpuscular Hemoglobin 29.7 pg (27.0-33.0); Mean Corpuscular Volume 90.3 fL (80.0-98.0); Mean Platelet Volume 11.5 fL (9.4-12.3); Monocytes Absolute Auto 1.1 X10*3/uL (0.1-1.2); Monocytes Percent Auto 6.9 % (2-11); Neutrophils Absolute Auto 12.7 x10*3/uL (2.0-8.3); Neutrophils Percent Auto 76.4 % (45-73); Platelet Count 273 X10*3/uL (160-400); Red Blood Count 4.54 X10*6/uL (4.20-5.50); Red Cell Distribution Width 13.6 % (11.0-16.0); White Blood Count 16.6 X10*3/uL (4.8-10.8)
[2024-12-02 17:09] LABS: Alanine Aminotransferase 23 U/L (0-31); Albumin Level 4.6 g/dL (3.5-5.0); Alkaline Phosphatase 96 U/L (39-117); Anion Gap 12 (12-20); Aspartate Amino Transferase 26 U/L (5-31); Bilirubin Total 0.5 mg/dL (0.0-1.0); Blood Urea Nitrogen 8 mg/dL (9-16); Carbon Dioxide 25 mmol/L (22-29); Chloride 109 mmol/L (96-108); Creatinine Clr Calc Pharmacy 110.3; Estimated Glomerular Filt Rate > 60; Glucose Random 113 mg/dL (60-115); Sodium 142 mmol/L (135-145); Total Protein 7.5 g/dL (6.5-8.0)
[2024-12-02 18:00] VITALS: BP 110/73; PULSE 110; RESP 16; TEMP 36.7; O2SAT 97
--- NOTE | 2024-12-02 18:49 | PHA.MEDREC ---
Addendum entered by Poornima Holcomb RPh 12/02/24 19:44: REVIEWED BY [facility] Original Note: Pharmacy Consult ? Medication Reconciliation Pharmacy has completed the medication reconciliation. Utilized list from [facility].
--- NOTE | 2024-12-02 19:02 | PC.NURSE ---
assumed care of patient. Ct still pending. patient in no apparent distress. sitter at bedside
[2024-12-02 19:56] VITALS: BP 121/94; PULSE 112; RESP 20; TEMP 36.9; O2SAT 97
[2024-12-02 20:00] VITALS: BP 129/86; PULSE 110; RESP 16; TEMP 36.8; O2SAT 98
[2024-12-02] MEDS: cloZAPine 100 MG TABLET 200 MG PO (20:40)
[2024-12-02 22:35] VITALS: BP 138/78; PULSE 113; RESP 18; TEMP 36.7; O2SAT 98
[2024-12-03 01:20] VITALS: BP 138/78; PULSE 113; RESP 18; TEMP 36.7; O2SAT 98
== END 2024-12-03 01:30 ==
PROVIDERS: Emergency Provider Emergency Medicine
DX: S00.83XA Contusion of other part of head, initial encounter (principal); W22.09XA Striking against other stationary object, initial encounter; R51.9 Headache, unspecified; Y93.89 Activity, other specified; Y92.199 Unspecified place in other specified residential institution as the place of occurrence of the external cause; Y99.8 Other external cause status
CPT/HCPCS: 36415; 70450; 80053; 85025; 99285

== ENCOUNTER → 2024-12-02 16:36 | Outpatient (BNV) | payer OTHER, SELFPAY | PROVIDERS: Emergency Provider Emergency Medicine; Visit Provider Radiology Diagnostic Radiology | DX: S09.90XA Unspecified injury of head, initial encounter (principal) | CPT/HCPCS: 70450 ==